=== PATIENT | male | born 1950 | race Caucasian/White ===

== ENCOUNTER 2017-03-04 16:39 | Observation (INO) | payer MEDICARE ==
[2017-03-04] MEDS ORDERED: Sodium Chloride 0.9% 1,000 ML IV ONE (17:03)
[2017-03-04] MEDS ORDERED: Pantoprazole 40 MG Vial IVPUSH ONE (17:03)
[2017-03-04] MEDS ORDERED: Ondansetron 4 MG/2 ML SDV IVPUSH ONE (17:03)
[2017-03-04] MEDS ORDERED: Iopamidol 755 Mg/ML 100 ML Bottle IV SCH (19:00)
[2017-03-04] MEDS ORDERED: Ciprofloxacin in D5W 200 MG in Premix Bag 1 BAG IV ONE ×2 (20:59)
[2017-03-04] MEDS ORDERED: cefTRIAXone 1,000 MG VIAL IM ONE (21:01)
[2017-03-04] MEDS ORDERED: Ciprofloxacin in D5W 100 ML ONE (21:34)
[2017-03-05] MEDS ORDERED: traZODone 50 MG Tab PO PRN (07:51)
[2017-03-05] MEDS ORDERED: Nitroglycerin 0.4 MG Tab.SL SL PRN (07:51)
[2017-03-05] MEDS ORDERED: Albuterol 8 GM Inhaler INH PRN (07:51)
[2017-03-05] MEDS ORDERED: oxyCODONE 5 MG Tab PO PRN (07:51)
[2017-03-05] MEDS ORDERED: Acetaminophen/HYDROcodone 325-5 MG Tab PO SCH (08:00)
--- NOTE | 2017-03-05 08:12 | PCM.HP ---
H&P History of Present Illness - General Date of Service: 03/05/17 Admit Problem/Dx: Admission Diagnosis/Problem Admission Diagnosis/Problem Gastroenteritis Source of Information: Patient History Limitations: Reports: No Limitations - History of Present Illness Initial Comments - Free Text/Narative: This is a 66-year-old male patient has 5 day history of vomiting right-sided abdominal pain, fevers, chills and occasional diarrhea. One time the diarrhea had a little blood in it and he had a dark stool so he came into the ER. He has no exposures. About a year ago he had elevated liver tests and he was sent [facility] and found that he had gallbladder disease. The gallbladder was removed. He states he's never quite felt right since then. He has lost 20 pounds in the last year. He says he has a decreased appetite. He also states he's had gross hematuria for 3-4 months. He has not had it checked out at this time. He says he doesn't really have burning in his urine right now but it doesn't feel right. He states right now when he has to urinate. If he doesn't have a bathroom available he may be incontinent. He states abdominal pain feels like a pulling. It's a right mid and lower quadrants. Does not radiate. He does have chronic back pain but denies CVA tenderness. Generalized Pain Score (Numeric/FACES): 4 - Related Data Allergies/Adverse Reactions: Allergies Allergy/AdvReac Type Severity Reaction Status Date / Time bupropion HCl Allergy Nausea Verified 03/05/17 07:56 [From Wellbutrin] latex Allergy Rash Verified 03/05/17 07:56 paroxetine HCl [From Paxil] Allergy Shaking Verified 03/05/17 07:56 Home Medications: Home Meds Carvedilol [Coreg] 6.25 mg PO BID 07/17/15 [History] Latanoprost [Xalatan 0.005% Ophth Soln] 1 drop EYEBOTH BEDTIME 07/17/15 [History ] Multivitamin with Minerals [Multiple Vitamin] 1 tab PO DAILY 07/17/15 [History] Nitroglycerin [Nitrostat] 0.4 mg SL Q5M PRN 07/17/15 [History] Sennosides/Docusate Sodium [Senna-Docusate Sodium Tablet] 1 tab PO DAILY PRN 10/ 23/15 [History] atorvaSTATin [Lipitor] 40 mg PO DAILY 07/17/15 [History] traZODone 50 mg PO BEDTIME PRN 07/17/15 [History] Aspirin [Halfprin] 81 mg PO DAILY tab.ec 07/22/15 [Rx] Albuterol [Ventolin HFA] 1 - 2 puff INH Q4H PRN 10/13/15 [History] Lactobacillus Acidophilus [Acidophilus] 1 cap PO TID 10/13/15 [History] oxyCODONE 5 mg PO Q6H PRN 10/13/15 [History] Dabigatran [Pradaxa] 1 cap PO BID 03/04/17 [History] Gabapentin [Neurontin] 1 cap PO BID 03/04/17 [History] Hydrocodone/Acetaminophen [[place] 5-325] 1 tab PO ASDIRECTED 03/04/17 [History] Tamsulosin [Flomax] 2 cap PO DAILY 03/04/17 [History] metFORMIN [Glucophage] 1 tab PO BID 03/04/17 [History] Past Medical History HEENT History: Reports: Impaired Vision, Other (See Below) Other HEENT History: Wears glasses. Cardiovascular History: Reports: Afib, Pacemaker, Stents, Other (See Below) Other Cardiovascular History: Stents X2. Respiratory History: Reports: Pneumonia, Recurrent Other Respiratory History: pneumonia as a child Gastrointestinal History: Reports: Other (See Below) Other Gastrointestinal History: ABSCESS ON LIVER Genitourinary History: Reports: None Other Genitourinary History: denies urinary hx; states urinary urgency started past few days Musculoskeletal History: Reports: Back Pain, Chronic, Fracture Other Musculoskeletal History: Left arm injury--required elbow and forearm surgery. Has difficulty walking due to low back pain and arthritis. Neurological History: Reports: Brain Injury, Head Trauma, Other (See Below) Other Neuro History: Fell off chair resulting in subdural hematoma, about 10 years ago. Required surgical intervention. Psychiatric History: Reports: None Endocrine/Metabolic History: Reports: Diabetes, Type II Hematologic History: Reports: Anticoagulation Therapy Immunologic History: Reports: None Oncologic (Cancer) History: Reports: None Dermatologic History: Reports: None - Infectious Disease History Infectious Disease History: Reports: Other (See Below) Other Infectious Disease History: Patient doesn't know what childhood diseases he may have had. - Past Surgical History Cardiovascular Surgical History: Reports: Coronary Artery Stent GI Surgical History: Reports: Cholecystectomy Other GI Surgeries/Procedures: states ~ a year ago, went in for his gallbladder removal; they ended up doing an incision, as the. gallbladder was in scar tissue, and the surgeon, [facility], lacerated a bile duct; says he was told. around that time he had a "severe liver infection" and in the hospital a while; denies it being. hepatitis Male Surgical History: Reports: None Musculoskeletal Surgical History: Reports: Arthroscopic Knee, Other (See Below) Other Musculoskeletal Surgeries/Procedures:: Left knee scope X2. Social & Family History - Family History Cardiac: Reports: CAD - Tobacco Use Smoking Status *Q: Current Every Day Smoker Years of Tobacco use: 47 Packs/Tins Daily: 1.5 Second Hand Smoke Exposure: No - Caffeine Use Caffeine Use: Reports: Coffee, Soda, Tea - Recreational Drug Use Recreational Drug Use: No - Living Situation & Occupation Living situation: Reports: H&P Review of Systems - Review of Systems: Review Of Systems: See Below General: Reports: Fever, Chills, Weakness, Decreased Appetite, Weight Loss HEENT: Reports: No Symptoms Pulmonary: Reports: No Symptoms Cardiovascular: Reports: No Symptoms Gastrointestinal: Reports: Abdominal Pain, Black Stool, Diarrhea, Hematochezia, Nausea, Vomiting. Denies: Stool Incontinence Genitourinary: Reports: Urgency, Hematuria. Denies: Flank Pain Musculoskeletal: Reports: No Symptoms Skin: Reports: No Symptoms Psychiatric: Reports: No Symptoms Neurological: Reports: No Symptoms Hematologic/Lymphatic: Reports: No Symptoms Immunologic: Reports: No Symptoms Exam - Exam Exam: See Below - Vital Signs Vital Signs: Last Vital Signs Temp 98.4 F 03/05/17 04:30 Pulse 109 H 03/05/17 04:30 Resp 18 03/05/17 04:30 BP 105/76 03/05/17 04:30 Pulse Ox 94 L 03/05/17 04:30 Weight: 230 lb 9.6 oz - Exam General: Alert, Oriented, Cooperative. No: Mild Distress HEENT: PERRLA, Hearing Intact, Posterior Pharynx Clear, Pupils Reactive, TMs Clear, Other (Upper plate) Neck: Supple, Trachea Midline. No: Carotid Bruit, JVD Lungs: Clear to Auscultation, Normal Respiratory Effort. No: Crackles, Rales, Rhonchi Cardiovascular: Regular Rate, Regular Rhythm. No: Irregular Rhythm, Systolic Murmur Abdomen: Soft, Tenderness (Diffuse to palpation.), Hyperactive Bowel Sounds. No : Organomegaly Back Exam: Normal Inspection Extremities: Normal Inspection. No: Clubbing, Cool, Edema Skin: Warm, Dry, Intact Neurological: Normal Tone Neuro Extensive - Mental Status: Alert, Oriented x3, Normal Mood/Affect, Normal Cognition - Patient Data Lab Results last 24 hrs: Laboratory Results - last 24 hr 03/04/17 03/04/17 03/04/17 Range/Units 21:15 21:20 22:20 POC Glucose 117 H (80-116) mg/dL Lactic Acid 1.0 (0.5-2.2) mmol/L Blood Type B POSITIVE Gel Antibody Screen Negative 03/05/17 Range/Units 06:26 POC Glucose 139 H (80-116) mg/dL Lactic Acid (0.5-2.2) mmol/L Blood Type Gel Antibody Screen Result Diagrams: 03/04/17 17:10 03/04/17 17:10 *Q Meaningful Use (ADM) - VTE *Q VTE Criteria *Q: - Stroke *Q Stroke Criteria *Q: - AMI *Q AMI Criteria *Q: - Problem List (1) Gastroenteritis SNOMED Code(s): 14196659 ICD Code: K52.9 - NONINFECTIVE GASTROENTERITIS AND COLITIS, UNSPECIFIED Status: Acute Current Visit: Yes (2) UTI (urinary tract infection) SNOMED Code(s): 61668601 ICD Code: N39.0 - URINARY TRACT INFECTION, SITE NOT SPECIFIED Status: Acute Current Visit: Yes (3) Gross hematuria SNOMED Code(s): 498541197 ICD Code: R31.0 - GROSS HEMATURIA Status: Acute Current Visit: Yes (4) Elevated LFTs SNOMED Code(s): 838679039 ICD Code: R79.89 - OTHER SPECIFIED ABNORMAL FINDINGS OF BLOOD CHEMISTRY Status: Acute Current Visit: Yes (5) Smoking addiction SNOMED Code(s): 712916668, 713529089 ICD Code: F17.200 - NICOTINE DEPENDENCE, UNSPECIFIED, UNCOMPLICATED Status : Acute Current Visit: Yes Problem List Initiated/Reviewed/Updated: Yes Orders Last 24hrs: Active Orders 24 hr Category Date Time Status Blood Glucose Check, Bedside [RC] QIDACANDBED Care 03/05/17 06:30 Active EKG Documentation Completion [RC] ASDIRECTED Care 03/05/17 08:00 Active Consistent Carbohydrate Diet [DIET] Diet 03/05/17 Breakfast Active CBC WITH AUTO DIFF [HEME] Routine Lab 03/05/17 07:51 Ordered COMPREHENSIVE METABOLIC PN,CMP [CHEM] Routine Lab 03/05/17 07:51 Ordered CULTURE URINE [RM] Stat Lab 03/04/17 17:45 Received Acetaminophen/HYDROcodone [[place] 325-5 MG] Med 03/05/17 08:00 Pending 1 tab PO ASDIRECTED Albuterol [Ventolin HFA] Med 03/05/17 07:51 Ordered DOSE gm INH Q4H PRN Aspirin [Halfprin] Med 03/05/17 09:00 Ordered 81 mg PO DAILY Carvedilol [Coreg] Med 03/05/17 09:00 Ordered 6.25 mg PO BID Docusate Sodium/Sennosides [Senna Plus] Med 03/05/17 07:51 Ordered 1 tab PO DAILY PRN Gabapentin [Neurontin] Med 03/05/17 09:00 Ordered DOSE mg PO BID Lactobacillus Acidophilus [Acidophilus] Med 03/05/17 09:00 Ordered 1 cap PO TID Latanoprost [Xalatan 0.005% Ophth Soln] Med 03/05/17 21:00 Ordered DOSE ml EYEBOTH BEDTIME Multivitamin with Minerals [Multiple Vitamin] Med 03/05/17 09:00 Ordered 1 tab PO DAILY Nitroglycerin [Nitrostat] Med 03/05/17 07:51 Ordered 0.4 mg SL Q5M PRN Sodium Chloride 0.9% [Normal Saline] 1,000 ml Med 03/05/17 08:00 Active IV ASDIRECTED Tamsulosin [Flomax] Med 03/05/17 09:00 Ordered DOSE mg PO DAILY atorvaSTATin [Lipitor] Med 03/05/17 09:00 Ordered 40 mg PO DAILY cefTRIAXone [Rocephin] 1,000 mg Med 03/05/17 08:00 Active Sodium Chloride 0.9% [Normal Saline] 50 ml IV Q24H oxyCODONE Med 03/05/17 07:51 Active 5 mg PO Q6H PRN traZODone Med 03/05/17 07:51 Ordered 50 mg PO BEDTIME PRN EKG 12 Lead [EK] Routine Ther 03/05/17 08:00 Ordered Medication Orders Hydrocodone Bitart/Acetaminophen ([place] 325-5 Mg) 1 tab PO ASDIRECTED [facility] Albuterol (Ventolin Hfa) gm INH Q4H PRN PRN Reason: Dyspnea Aspirin (Halfprin) 81 mg PO DAILY [facility] Atorvastatin Calcium (Lipitor) 40 mg PO DAILY [facility] Carvedilol (Coreg) 6.25 mg PO BID [facility] Gabapentin (Neurontin) mg PO BID [facility] Sodium Chloride (Normal Saline) 1,000 mls @ 125 mls/hr IV ASDIRECTED [facility] Ceftriaxone Sodium 1,000 mg/ (Sodium Chloride) 50 mls @ 100 mls/hr IV Q24H [facility] Iopamidol (Isovue-370 (76%)) 100 ml IV . DIRECTED [facility] Last Admin: 03/04/17 19:34 Dose: 100 ml Latanoprost (Xalatan 0.005% Ophth Soln) ml EYEBOTH BEDTIME [facility] Nitroglycerin (Nitrostat) 0.4 mg SL Q5M PRN PRN Reason: Chest Pain Non-Formulary Medication (Lactobacillus Acidophilus [Acidophilus]) 1 cap PO TID [facility] Non-Formulary Medication (Multivitamin With Minerals [Multiple Vitamin]) 1 tab PO DAILY [facility] Oxycodone HCl (Oxycodone) 5 mg PO Q6H PRN PRN Reason: moderate pain Senna/Docusate Sodium (Senna Plus) 1 tab PO DAILY PRN PRN Reason: Constipation Tamsulosin HCl (Flomax) mg PO DAILY [facility] Trazodone HCl (Trazodone) 50 mg PO BEDTIME PRN PRN Reason: Insomnia Assessment/Plan Comment:: 1. Repeat CBC and CMP. 2. EKG to see if the patient's in A. fib or not. I do not detect A. fib on exam today. 3. Rocephin 1 g a day plus IV fluids 125 mL an hour. 4. ADA diet with multiple Accu-Cheks. 5. Hold metformin and Pradaxa 6. Lookup in his chart and his LFTs have been elevated in the past but not quite this high. 7. CAT scan reviewed and essentially no acute changes. 8. Patient to use his own home medications. 9. I offered the patient nicotine patch. He deferred. Smoking cessation discussed. 10. Hold anticoagulation due to possible rectal bleeding and gross hematuria. 11. SCD
[2017-03-05] MEDS ORDERED: Acetaminophen/HYDROcodone 325-5 MG Tab PO PRN (08:42)
[2017-03-05] MEDS ORDERED: Ondansetron 4 MG/2 ML SDV IVPUSH PRN (08:49)
[2017-03-05] MEDS: cefTRIAXone 1,000 MG in Sodium Chloride 0.9% 50 ML IV SCH (09:05)
[2017-03-05] MEDS ORDERED: cefTRIAXone 1,000 MG VIAL ONE (09:32)
[2017-03-05] MEDS: Multivitamins, Therapeutic with Minerals Tab PO SCH (10:03)
[2017-03-05] MEDS: Lactobacillus Rhamnosus GG (Probiotic) Cap PO SCH ×3 (10:03→20:48)
[2017-03-05] MEDS: Tamsulosin 0.4 MG Cap.ER*PT OWN MED PO SCH (10:04)
[2017-03-05] MEDS: [UNRECOGNIZED DRUG - REMARK] PO SCH (10:04)
[2017-03-05] MEDS: Gabapentin 300 MG Cap*PT OWN MED PO SCH ×2 (10:04→20:50)
[2017-03-05] MEDS: CARVEDILOL 12.5 MG PO SCH ×2 (10:04→20:47)
[2017-03-05] MEDS: Sodium Chloride 0.9% 1,000 ML IV SCH ×2 (15:24→23:48)
[2017-03-05] MEDS ORDERED: [UNRECOGNIZED DRUG - REMARK] EYEBOTH SCH (21:00)
[2017-03-06] MEDS: cefTRIAXone 1,000 MG in Sodium Chloride 0.9% 50 ML IV SCH (07:52)
--- NOTE | 2017-03-06 07:57 | PCM.PN ---
- General Info Date of Service: 03/06/17 Admission Dx/Problem (Free Text): The patient feels much better today. He states his urine looks normal and there is no blood. His appetite is still poor be seeing about half what he orders. He has not had a diarrhea stool and about 12 hours. He has no abdominal pain, fevers, chills and his energy is improving. - Patient Data Vitals - most recent: Last Vital Signs Temp 98 F 03/06/17 05:30 Pulse 108 H 03/06/17 05:30 Resp 20 03/06/17 05:30 BP 103/65 03/06/17 05:30 Pulse Ox 95 03/06/17 05:30 Weight - most recent: 230 lb 9.6 oz I&O - last 24 hours: Intake & Output 03/05/17 03/06/17 03/06/17 22:59 06:59 14:59 Intake Total 688 1028 Output Total 450 Balance 688 578 Lab Results last 24 hrs: Laboratory Results - last 24 hr 03/05/17 03/05/17 03/05/17 Range/Units 08:24 08:24 11:11 WBC 15.9 H (4.5-12.0) X10-3/uL RBC 4.75 (4.30-5.75) x10(6)uL Hgb 13.4 (11.5-15.5) g/dL Hct 39.8 (30.0-51.3) % MCV 83.8 (80-96) fL MCH 28.2 (27.7-33.6) pg MCHC 33.7 (32.2-35.4) g/dL RDW 14.8 (11.5-15.5) % Plt Count 108 L (125-369) X10(3)uL MPV 11.0 H (7.4-10.4) fL Neut % (Auto) (46-82) % Lymph % (Auto) (13-37) % [place] % (Auto) (4-12) % Eos % (Auto) (1.0-5.0) % Baso % (Auto) (0-2) % Neut # (Auto) (1.6-8.3) # Lymph # (Auto) (0.6-5.0) # [place] # (Auto) (0.0-1.3) # Eos # (Auto) (0.0-0.8) # Baso # (Auto) (0.0-0.2) # Add Manual Diff Yes Neutrophils % (Manual) 76 (46-82) % Lymphocytes % (Manual) 21 (13-37) % Monocytes % (Manual) 3 L (4-12) % Sodium 139 (135-145) mmol/L Potassium 3.8 (3.5-5.3) mmol/L Chloride 105 (100-110) mmol/L Carbon Dioxide 27 (23-29) mmol/L BUN 14 (8-23) mg/dL Creatinine 1.0 (0.6-1.3) mg/dL Est Cr Clr Drug Dosing 79.76 mL/min Estimated GFR (MDRD) > 60 (>60) BUN/Creatinine Ratio 14.0 (9-20) Glucose 122 H (80-116) mg/dL POC Glucose 137 H (80-116) mg/dL Calcium 8.7 (8.6-10.2) mg/dL Total Bilirubin 1.2 (0.1-1.3) mg/dL AST 76 H D (5-27) IU/L ALT 172 H D (14-26) IU/L Alkaline Phosphatase 144 H (56-112) IU/L Total Protein 6.7 (6.0-8.0) g/dL Albumin 2.6 L (3.2-4.6) g/dL Globulin 4.1 g/dL Albumin/Globulin Ratio 0.6 03/05/17 03/05/17 03/06/17 Range/Units 16:58 22:28 06:10 WBC 11.6 (4.5-12.0) X10-3/uL RBC 4.40 (4.30-5.75) x10(6)uL Hgb 12.4 (11.5-15.5) g/dL Hct 37.2 (30.0-51.3) % MCV 84.7 (80-96) fL MCH 28.2 (27.7-33.6) pg MCHC 33.4 (32.2-35.4) g/dL RDW 14.7 (11.5-15.5) % Plt Count 106 L (125-369) X10(3)uL MPV 12.2 H (7.4-10.4) fL Neut % (Auto) 72.4 (46-82) % Lymph % (Auto) 18.1 (13-37) % [place] % (Auto) 8.5 (4-12) % Eos % (Auto) 1 (1.0-5.0) % Baso % (Auto) 0 (0-2) % Neut # (Auto) 8.4 H (1.6-8.3) # Lymph # (Auto) 2.1 (0.6-5.0) # [place] # (Auto) 1.0 (0.0-1.3) # Eos # (Auto) 0.1 (0.0-0.8) # Baso # (Auto) 0.0 (0.0-0.2) # Add Manual Diff Neutrophils % (Manual) (46-82) % Lymphocytes % (Manual) (13-37) % Monocytes % (Manual) (4-12) % Sodium (135-145) mmol/L Potassium (3.5-5.3) mmol/L Chloride (100-110) mmol/L Carbon Dioxide (23-29) mmol/L BUN (8-23) mg/dL Creatinine (0.6-1.3) mg/dL Est Cr Clr Drug Dosing mL/min Estimated GFR (MDRD) (>60) BUN/Creatinine Ratio (9-20) Glucose (80-116) mg/dL POC Glucose 125 H 133 H (80-116) mg/dL Calcium (8.6-10.2) mg/dL Total Bilirubin (0.1-1.3) mg/dL AST (5-27) IU/L ALT (14-26) IU/L Alkaline Phosphatase (56-112) IU/L Total Protein (6.0-8.0) g/dL Albumin (3.2-4.6) g/dL Globulin g/dL Albumin/Globulin Ratio 03/06/17 Range/Units 06:10 WBC (4.5-12.0) X10-3/uL RBC (4.30-5.75) x10(6)uL Hgb (11.5-15.5) g/dL Hct (30.0-51.3) % MCV (80-96) fL MCH (27.7-33.6) pg MCHC (32.2-35.4) g/dL RDW (11.5-15.5) % Plt Count (125-369) X10(3)uL MPV (7.4-10.4) fL Neut % (Auto) (46-82) % Lymph % (Auto) (13-37) % [place] % (Auto) (4-12) % Eos % (Auto) (1.0-5.0) % Baso % (Auto) (0-2) % Neut # (Auto) (1.6-8.3) # Lymph # (Auto) (0.6-5.0) # [place] # (Auto) (0.0-1.3) # Eos # (Auto) (0.0-0.8) # Baso # (Auto) (0.0-0.2) # Add Manual Diff Neutrophils % (Manual) (46-82) % Lymphocytes % (Manual) (13-37) % Monocytes % (Manual) (4-12) % Sodium 141 (135-145) mmol/L Potassium 3.7 (3.5-5.3) mmol/L Chloride 109 (100-110) mmol/L Carbon Dioxide 25 (23-29) mmol/L BUN 17 (8-23) mg/dL Creatinine 0.9 (0.6-1.3) mg/dL Est Cr Clr Drug Dosing 88.62 mL/min Estimated GFR (MDRD) > 60 (>60) BUN/Creatinine Ratio 18.9 (9-20) Glucose 126 H (80-116) mg/dL POC Glucose (80-116) mg/dL Calcium 8.4 L (8.6-10.2) mg/dL Total Bilirubin 1.0 (0.1-1.3) mg/dL AST 60 H D (5-27) IU/L ALT 126 H D (14-26) IU/L Alkaline Phosphatase 146 H (56-112) IU/L Total Protein 6.1 (6.0-8.0) g/dL Albumin 2.5 L (3.2-4.6) g/dL Globulin 3.6 g/dL Albumin/Globulin Ratio 0.7 Med Orders - Current: Current Medications Hydrocodone Bitart/Acetaminophen ([place] 325-5 Mg) 1 tab PO QID PRN PRN Reason: Pain Last Admin: 03/05/17 10:05 Dose: 1 tab Albuterol (Ventolin Hfa) 0 gm INH Q4H PRN PRN Reason: Dyspnea Aspirin (Halfprin) 81 mg PO DAILY [facility] Last Admin: 03/05/17 10:04 Dose: 81 mg Atorvastatin Calcium (Lipitor) 40 mg PO BEDTIME [facility] Last Admin: 03/05/17 20:49 Dose: 40 mg Carvedilol (Coreg) 12.5 mg PO BID [facility] Last Admin: 03/05/17 20:47 Dose: 12.5 mg Gabapentin (Neurontin) 300 mg PO BID [facility] Last Admin: 03/05/17 20:50 Dose: 300 mg Sodium Chloride (Normal Saline) 1,000 mls @ 125 mls/hr IV ASDIRECTED [facility] Last Admin: 03/05/17 23:48 Dose: 125 mls/hr Ceftriaxone Sodium 1,000 mg/ (Sodium Chloride) 50 mls @ 100 mls/hr IV Q24H [facility] Last Admin: 03/06/17 07:52 Dose: 100 mls/hr Iopamidol (Isovue-370 (76%)) 100 ml IV . DIRECTED [facility] Last Admin: 03/04/17 19:34 Dose: 100 ml Lactobacillus Rhamnosus (Culturelle) 1 cap PO TID [facility] Last Admin: 03/05/17 20:48 Dose: Not Given Latanoprost (Xalatan 0.005% Ophth Soln) 0 ml EYEBOTH BEDTIME [facility] Last Admin: 03/05/17 20:51 Dose: 1 drop Multivitamins/Minerals (Vitamins And Minerals) 1 tab PO DAILY [facility] Last Admin: 03/05/17 10:03 Dose: Not Given Nitroglycerin (Nitrostat) 0.4 mg SL Q5M PRN PRN Reason: Chest Pain Ondansetron HCl (Zofran) 4 mg IVPUSH Q6H PRN PRN Reason: Nausea/Vomiting Senna/Docusate Sodium (Senna Plus) 1 tab PO DAILY PRN PRN Reason: Constipation Tamsulosin HCl (Flomax) 0.8 mg PO DAILY [facility] Last Admin: 03/05/17 10:04 Dose: 0.8 mg Trazodone HCl (Trazodone) 50 mg PO BEDTIME PRN PRN Reason: Insomnia Discontinued Medications Hydrocodone Bitart/Acetaminophen ([place] 325-5 Mg) 1 tab PO ASDIRECTED [facility] Ceftriaxone Sodium (Rocephin) 1,000 mg IM ONETIME ONE Stop: 03/04/17 21:02 Last Admin: 03/04/17 21:42 Dose: 1,000 mg Ceftriaxone Sodium (Rocephin) Confirm Administered Dose 1,000 mg .ROUTE .STK- MED ONE Stop: 03/05/17 09:33 Last Admin: 03/05/17 10:02 Dose: Not Given Sodium Chloride (Normal Saline) 1,000 mls @ 0 mls/hr IV .BOLUS ONE PRN Reason: KVO Stop: 03/04/17 17:04 Last Admin: 03/04/17 17:23 Dose: 999 mls/hr Ciprofloxacin/Dextrose 200 mg/ (Premix) 100 mls @ 100 mls/hr IV ONETIME ONE Stop: 03/04/17 21:58 Last Admin: 03/04/17 21:42 Dose: 100 mls/hr Ciprofloxacin/Dextrose (Cipro In D5w 200 Mg/100 Ml) Confirm Administered Dose 100 mls @ as directed .ROUTE .STK-MED ONE Stop: 03/04/17 21:35 Last Admin: 03/04/17 22:12 Dose: Not Given Ondansetron HCl (Zofran) 4 mg IVPUSH ONETIME ONE Stop: 03/04/17 17:04 Last Admin: 03/04/17 17:29 Dose: 4 mg Oxycodone HCl (Oxycodone) 5 mg PO Q6H PRN PRN Reason: moderate pain Pantoprazole Sodium (Protonix Iv) 40 mg IVPUSH ONETIME ONE Stop: 03/04/17 17:04 Last Admin: 03/04/17 17:30 Dose: 40 mg - Exam General: alert, oriented, cooperative Neck: supple Lungs: Clear to auscultation, Normal respiratory effort Cardiovascular: Regular Rate, Regular Rhythm, No Murmurs Abdomen: bowel sounds present, soft, no tenderness, no distension Extremities: no edema - Problem List & Annotations (1) Gastroenteritis SNOMED Code(s): 18299005 Code(s): K52.9 - NONINFECTIVE GASTROENTERITIS AND COLITIS, UNSPECIFIED Status: Acute Current Visit: Yes (2) UTI (urinary tract infection) SNOMED Code(s): 65482031 Code(s): N39.0 - URINARY TRACT INFECTION, SITE NOT SPECIFIED Status: Acute Current Visit: Yes Qualifiers: Urinary tract infection type: acute cystitis Hematuria presence: with hematuria Qualified Code(s): N30.01 - Acute cystitis with hematuria (3) Elevated LFTs SNOMED Code(s): 587729274 Code(s): R79.89 - OTHER SPECIFIED ABNORMAL FINDINGS OF BLOOD CHEMISTRY Status: Acute Current Visit: Yes (4) Smoking addiction SNOMED Code(s): 135156185, 384107447 Code(s): F17.200 - NICOTINE DEPENDENCE, UNSPECIFIED, UNCOMPLICATED Status: Acute Current Visit: Yes (5) Thrombocytopenia SNOMED Code(s): 434604459 Code(s): D69.6 - THROMBOCYTOPENIA, UNSPECIFIED Status: Acute Current Visit: Yes - Problem List Review Problem List Initiated/Reviewed/Updated: Yes - My Orders Last 24 Hours: My Active Orders 03/05/17 07:51 Albuterol [Ventolin HFA] 0 gm INH Q4H PRN Docusate Sodium/Sennosides [Senna Plus] 1 tab PO DAILY PRN Nitroglycerin [Nitrostat] 0.4 mg SL Q5M PRN traZODone 50 mg PO BEDTIME PRN 03/05/17 08:00 EKG Documentation Completion [RC] ASDIRECTED Sodium Chloride 0.9% [Normal Saline] 1,000 ml IV ASDIRECTED cefTRIAXone [Rocephin] 1,000 mg Sodium Chloride 0.9% [Normal Saline] 50 ml IV Q24H EKG 12 Lead [EK] Routine 03/05/17 08:17 SCD [Sequential Compression Device] [OM.PC] Routine 03/05/17 08:42 Acetaminophen/HYDROcodone [[place] 325-5 MG] 1 tab PO QID PRN 03/05/17 08:49 Ondansetron [Zofran] 4 mg IVPUSH Q6H PRN 03/05/17 09:00 Tamsulosin [Flomax] 0.8 mg PO DAILY 03/05/17 09:14 Blood Culture x2 Reflex Set [OM.PC] Urgent 03/05/17 09:25 CULTURE BLOOD [BC] Urgent 03/05/17 09:50 CULTURE BLOOD [BC] Urgent 03/05/17 10:00 Aspirin [Halfprin] 81 mg PO DAILY Carvedilol [Coreg] 12.5 mg PO BID Gabapentin [Neurontin] 300 mg PO BID 03/05/17 10:15 Lactobacillus Rhamnosus GG [Culturelle] 1 cap PO TID Multivitamins/Minerals [Vitamins and Minerals] 1 tab PO DAILY 03/05/17 21:00 Latanoprost [Xalatan 0.005% Ophth Soln] 0 ml EYEBOTH BEDTIME atorvaSTATin [Lipitor] 40 mg PO BEDTIME - Plan Plan:: 1. DC IV fluids have been saline locked IV. 2. UA grew out gram-negative rods. The lab states that the identification sensitivity should be done this afternoon. 3. If the bacteria identified as sensitive to by mouth antibiotics I will discharge this afternoon. If it is not sensitive PO antibiotics and only IV antibiotics work, he will stay here.
[2017-03-06] MEDS: Multivitamins, Therapeutic with Minerals Tab PO SCH (09:05)
[2017-03-06] MEDS: [UNRECOGNIZED DRUG - REMARK] PO SCH (09:05)
[2017-03-06] MEDS: Tamsulosin 0.4 MG Cap.ER*PT OWN MED PO SCH (09:05)
[2017-03-06] MEDS: Gabapentin 300 MG Cap*PT OWN MED PO SCH (09:05)
[2017-03-06] MEDS: Lactobacillus Rhamnosus GG (Probiotic) Cap PO SCH ×2 (09:05→13:12)
[2017-03-06] MEDS: CARVEDILOL 12.5 MG PO SCH (09:05)
[2017-03-06 15:49] VITALS: BP 107/77
--- NOTE | 2017-03-06 17:37 | PCM.DCSUM1 ---
Discharge Summary - Hospital Course Free Text/Narrative:: Hospital coarse. Pt admitted and rehydrate. Rocephin for antibiotics. His diarrhea improved and his fevers and chills left. He ate and drank good. IC grew out gram negative rods. Awaiting I and D. Pt wanted to go home before the results were down. send him home on Cipro 500 mg bid. Platelets mildly low. recheck them in clinic. Brief History: This is a 66-year-old male patient has 5 day history of vomiting right-sided abdominal pain, fevers, chills and occasional diarrhea. One time the diarrhea had a little blood in it and he had a dark stool so he came into the ER. He has no exposures. About a year ago he had elevated liver tests and he was sent [facility] and found that he had gallbladder disease. The gallbladder was removed. He states he's never quite felt right since then. He has lost 20 pounds in the last year. He says he has a decreased appetite. He also states he's had gross hematuria for 3-4 months. He has not had it checked out at this time. He says he doesn't really have burning in his urine right now but it doesn't feel right. He states right now when he has to urinate. If he doesn't have a bathroom available he may be incontinent. He states abdominal pain feels like a pulling. It's a right mid and lower quadrants. Does not radiate. He does have chronic back pain but denies CVA tenderness. - Discharge Data Discharge Date: 03/06/17 Discharge Disposition: Home, Self-Care 01 Condition: Stable - Discharge Diagnosis/Problem(s) (1) Gastroenteritis SNOMED Code(s): 58021311 ICD Code: K52.9 - NONINFECTIVE GASTROENTERITIS AND COLITIS, UNSPECIFIED Status: Acute Current Visit: Yes (2) UTI (urinary tract infection) SNOMED Code(s): 14495458 ICD Code: N39.0 - URINARY TRACT INFECTION, SITE NOT SPECIFIED Status: Acute Current Visit: Yes Qualifiers: Urinary tract infection type: acute cystitis Hematuria presence: with hematuria Qualified Code(s): N30.01 - Acute cystitis with hematuria (3) Elevated LFTs SNOMED Code(s): 367447894 ICD Code: R79.89 - OTHER SPECIFIED ABNORMAL FINDINGS OF BLOOD CHEMISTRY Status: Acute Current Visit: Yes (4) Smoking addiction SNOMED Code(s): 322812886, 927024162 ICD Code: F17.200 - NICOTINE DEPENDENCE, UNSPECIFIED, UNCOMPLICATED Status : Acute Current Visit: Yes (5) Thrombocytopenia SNOMED Code(s): 915786032 ICD Code: D69.6 - THROMBOCYTOPENIA, UNSPECIFIED Status: Acute Current Visit: Yes - Patient Instructions Diet: Regular Diet as Tolerated Activity: As Tolerated Driving: May Drive Today Showering/Bathing: May Shower Notify Provider of: Fever, Increased Pain Other/Special Instructions: 1. Recheck with Dr Wallace in 7-10 days with UA, CBC and CMP before the appt. - Discharge Plan Prescriptions/Med Rec: Ciprofloxacin [IJD: Ciprofloxacin HCl] 500 mg PO BID #24 tab Home Medications: Home Meds Carvedilol [Coreg] 6.25 mg PO BID 07/17/15 [History] Latanoprost [Xalatan 0.005% Ophth Soln] 1 drop EYEBOTH BEDTIME 07/17/15 [History ] Multivitamin with Minerals [Multiple Vitamin] 1 tab PO DAILY 07/17/15 [History] Nitroglycerin [Nitrostat] 0.4 mg SL Q5M PRN 07/17/15 [History] Sennosides/Docusate Sodium [Senna-Docusate Sodium Tablet] 1 tab PO DAILY PRN [History] atorvaSTATin [Lipitor] 40 mg PO DAILY 07/17/15 [History] traZODone 50 mg PO BEDTIME PRN 07/17/15 [History] Aspirin [Halfprin] 81 mg PO DAILY tab.ec 07/22/15 [Rx] Albuterol [Ventolin HFA] 1 - 2 puff INH Q4H PRN 10/13/15 [History] Lactobacillus Acidophilus [Acidophilus] 1 cap PO TID 10/13/15 [History] oxyCODONE 5 mg PO Q6H PRN 10/13/15 [History] Dabigatran [Pradaxa] 1 cap PO BID 03/04/17 [History] Gabapentin [Neurontin] 1 cap PO BID 03/04/17 [History] Hydrocodone/Acetaminophen [[place] 5-325] 1 tab PO Q3D PRN 03/04/17 [History] Tamsulosin [Flomax] 2 cap PO DAILY 03/04/17 [History] metFORMIN [Glucophage] 1 tab PO BID 03/04/17 [History] Ciprofloxacin [IJD: Ciprofloxacin HCl] 500 mg PO BID #24 tab 03/06/17 [Rx] Forms: ED Department Discharge Referrals: Ochoa Banks MD [Primary Care Provider] - - Discharge Summary/Plan Comment DC Time >30 min.: No - Patient Data Vitals - Most Recent: Last Vital Signs Temp 98.1 F 03/06/17 15:48 Pulse 92 03/06/17 15:48 Resp 20 03/06/17 15:48 BP 107/77 03/06/17 15:48 Pulse Ox 95 03/06/17 15:48 Weight - Most Recent: 230 lb 9.6 oz I&O - Last 24 hours: Intake & Output 03/06/17 03/06/17 03/06/17 06:59 14:59 22:59 Intake Total 1028 361 Output Total 450 300 Balance 578 61 Lab Results - Last 24 hrs: Laboratory Results - last 24 hr 03/05/17 03/06/17 03/06/17 Range/Units 22:28 06:10 06:10 WBC 11.6 (4.5-12.0) X10-3/uL RBC 4.40 (4.30-5.75) x10(6)uL Hgb 12.4 (11.5-15.5) g/dL Hct 37.2 (30.0-51.3) % MCV 84.7 (80-96) fL MCH 28.2 (27.7-33.6) pg MCHC 33.4 (32.2-35.4) g/dL RDW 14.7 (11.5-15.5) % Plt Count 106 L (125-369) X10(3)uL MPV 12.2 H (7.4-10.4) fL Neut % (Auto) 72.4 (46-82) % Lymph % (Auto) 18.1 (13-37) % [place] % (Auto) 8.5 (4-12) % Eos % (Auto) 1 (1.0-5.0) % Baso % (Auto) 0 (0-2) % Neut # (Auto) 8.4 H (1.6-8.3) # Lymph # (Auto) 2.1 (0.6-5.0) # [place] # (Auto) 1.0 (0.0-1.3) # Eos # (Auto) 0.1 (0.0-0.8) # Baso # (Auto) 0.0 (0.0-0.2) # Sodium 141 (135-145) mmol/L Potassium 3.7 (3.5-5.3) mmol/L Chloride 109 (100-110) mmol/L Carbon Dioxide 25 (23-29) mmol/L BUN 17 (8-23) mg/dL Creatinine 0.9 (0.6-1.3) mg/dL Est Cr Clr Drug Dosing 88.62 mL/min Estimated GFR (MDRD) > 60 (>60) BUN/Creatinine Ratio 18.9 (9-20) Glucose 126 H (80-116) mg/dL POC Glucose 133 H (80-116) mg/dL Calcium 8.4 L (8.6-10.2) mg/dL Total Bilirubin 1.0 (0.1-1.3) mg/dL AST 60 H D (5-27) IU/L ALT 126 H D (14-26) IU/L Alkaline Phosphatase 146 H (56-112) IU/L Total Protein 6.1 (6.0-8.0) g/dL Albumin 2.5 L (3.2-4.6) g/dL Globulin 3.6 g/dL Albumin/Globulin Ratio 0.7 /12/17 Range/Units 11:24 WBC (4.5-12.0) X10-3/uL RBC (4.30-5.75) x10(6)uL Hgb (11.5-15.5) g/dL Hct (30.0-51.3) % MCV (80-96) fL MCH (27.7-33.6) pg MCHC (32.2-35.4) g/dL RDW (11.5-15.5) % Plt Count (125-369) X10(3)uL MPV (7.4-10.4) fL Neut % (Auto) (46-82) % Lymph % (Auto) (13-37) % [place] % (Auto) (4-12) % Eos % (Auto) (1.0-5.0) % Baso % (Auto) (0-2) % Neut # (Auto) (1.6-8.3) # Lymph # (Auto) (0.6-5.0) # [place] # (Auto) (0.0-1.3) # Eos # (Auto) (0.0-0.8) # Baso # (Auto) (0.0-0.2) # Sodium (135-145) mmol/L Potassium (3.5-5.3) mmol/L Chloride (100-110) mmol/L Carbon Dioxide (23-29) mmol/L BUN (8-23) mg/dL Creatinine (0.6-1.3) mg/dL Est Cr Clr Drug Dosing mL/min Estimated GFR (MDRD) (>60) BUN/Creatinine Ratio (9-20) Glucose (80-116) mg/dL POC Glucose 129 H (80-116) mg/dL Calcium (8.6-10.2) mg/dL Total Bilirubin (0.1-1.3) mg/dL AST (5-27) IU/L ALT (14-26) IU/L Alkaline Phosphatase (56-112) IU/L Total Protein (6.0-8.0) g/dL Albumin (3.2-4.6) g/dL Globulin g/dL Albumin/Globulin Ratio ELLEN Results - Last 24 hrs: Microbiology 03/05/17 09:50 Aerobic Blood Culture - Preliminary Blood - Venous - Lab Draw NO GROWTH AFTER 1 DAY Anaerobic Blood Culture - Preliminary NO GROWTH AFTER 1 DAY 03/05/17 09:25 Aerobic Blood Culture - Preliminary Blood - Venous NO GROWTH AFTER 1 DAY Anaerobic Blood Culture - Preliminary NO GROWTH AFTER 1 DAY Med Orders - Current: Current Medications Hydrocodone Bitart/Acetaminophen ([place] 325-5 Mg) 1 tab PO QID PRN PRN Reason: Pain Last Admin: 03/05/17 10:05 Dose: 1 tab Albuterol (Ventolin Hfa) 0 gm INH Q4H PRN PRN Reason: Dyspnea Aspirin (Halfprin) 81 mg PO DAILY QUINN Last Admin: 03/06/17 09:05 Dose: 81 mg Atorvastatin Calcium (Lipitor) 40 mg PO BEDTIME QUINN Last Admin: 03/05/17 20:49 Dose: 40 mg Carvedilol (Coreg) 12.5 mg PO BID [facility] Last Admin: 03/06/17 09:05 Dose: 12.5 mg Gabapentin (Neurontin) 300 mg PO BID [facility] Last Admin: 03/06/17 09:05 Dose: 300 mg Ceftriaxone Sodium 1,000 mg/ (Sodium Chloride) 50 mls @ 100 mls/hr IV Q24H [facility] Last Admin: 03/06/17 07:52 Dose: 100 mls/hr Iopamidol (Isovue-370 (76%)) 100 ml IV . DIRECTED [facility] Last Admin: 03/04/17 19:34 Dose: 100 ml Lactobacillus Rhamnosus (Culturelle) 1 cap PO TID [facility] Last Admin: 03/06/17 13:12 Dose: Not Given Latanoprost (Xalatan 0.005% Ophth Soln) 0 ml EYEBOTH BEDTIME [facility] Last Admin: 03/05/17 20:51 Dose: 1 drop Multivitamins/Minerals (Vitamins And Minerals) 1 tab PO DAILY [facility] Last Admin: 03/06/17 09:05 Dose: Not Given Nitroglycerin (Nitrostat) 0.4 mg SL Q5M PRN PRN Reason: Chest Pain Ondansetron HCl (Zofran) 4 mg IVPUSH Q6H PRN PRN Reason: Nausea/Vomiting Senna/Docusate Sodium (Senna Plus) 1 tab PO DAILY PRN PRN Reason: Constipation Tamsulosin HCl (Flomax) 0.8 mg PO DAILY [facility] Last Admin: 03/06/17 09:05 Dose: 0.8 mg Trazodone HCl (Trazodone) 50 mg PO BEDTIME PRN PRN Reason: Insomnia Discontinued Medications Hydrocodone Bitart/Acetaminophen ([place] 325-5 Mg) 1 tab PO ASDIRECTED [facility] Ceftriaxone Sodium (Rocephin) 1,000 mg IM ONETIME ONE Stop: 03/04/17 21:02 Last Admin: 03/04/17 21:42 Dose: 1,000 mg Ceftriaxone Sodium (Rocephin) Confirm Administered Dose 1,000 mg .ROUTE .STK- MED ONE Stop: 03/05/17 09:33 Last Admin: 03/05/17 10:02 Dose: Not Given Sodium Chloride (Normal Saline) 1,000 mls @ 0 mls/hr IV .BOLUS ONE PRN Reason: KVO Stop: 03/04/17 17:04 Last Admin: 03/04/17 17:23 Dose: 999 mls/hr Ciprofloxacin/Dextrose 200 mg/ (Premix) 100 mls @ 100 mls/hr IV ONETIME ONE Stop: 03/04/17 21:58 Last Admin: 03/04/17 21:42 Dose: 100 mls/hr Ciprofloxacin/Dextrose (Cipro In D5w 200 Mg/100 Ml) Confirm Administered Dose 100 mls @ as directed .ROUTE .STK-MED ONE Stop: 03/04/17 21:35 Last Admin: 03/04/17 22:12 Dose: Not Given Sodium Chloride (Normal Saline) 1,000 mls @ 125 mls/hr IV ASDIRECTED QUINN Last Admin: 03/05/17 23:48 Dose: 125 mls/hr Ondansetron HCl (Zofran) 4 mg IVPUSH ONETIME ONE Stop: 03/04/17 17:04 Last Admin: 03/04/17 17:29 Dose: 4 mg Oxycodone HCl (Oxycodone) 5 mg PO Q6H PRN PRN Reason: moderate pain Pantoprazole Sodium (Protonix Iv) 40 mg IVPUSH ONETIME ONE Stop: 03/04/17 17:04 Last Admin: 03/04/17 17:30 Dose: 40 mg *Q Meaningful Use (DIS) - VTE *Q VTE Criteria *Q: - Stroke *Q Stroke Criteria *Q: - AMI *Q AMI Criteria *Q:
--- NOTE | 2017-03-07 09:10 | ER ---
DATE SEEN: 03/04/2017 HISTORY OF PRESENT ILLNESS: The patient is a 66-year-old gentleman who presents to the emergency department with abdominal pain he has had over the last several days, as well as nausea and diarrhea. This diarrhea started just today. He has been nauseous, said he has had some episodes of dark stool as well and some hematuria. Denies any lightheadedness or dizziness. No fever or chills. No shortness of breath. MEDICATIONS: 1. Peralta. 2. Pradaxa. 3. Glucophage. 4. Flomax. 5. Neurontin. 6. Coreg. 7. Aspirin. 8. Albuterol. 9. Trazodone. 10.Oxycodone. 11.Lipitor. ALLERGIES: Latex, paroxetine, bupropion. PAST MEDICAL HISTORY: Cholecystitis, abdominal pain, liver abscess, hyperlipidemia, coronary artery disease. REVIEW OF SYSTEMS: CARDIAC: No chest pain. PHYSICAL EXAMINATION: VITAL SIGNS: Pulse 114, blood pressure 101/79, respiratory rate 18, 97% on room air. GENERAL: He is in no apparent acute distress. LUNGS: Clear to auscultation. HEART: Regular rate and rhythm. No rubs, gallops, or murmurs. ABDOMEN: Mild tenderness to right lower quadrant. No guarding or rebound. Positive bowel sounds. No costovertebral angle tenderness. EXTREMITIES: Trace edema in ankles. RECTAL: Good rectal tone. Does have significant erythema around his rectal area, fungal in appearance. LABORATORY DATA: CBC: His white count is elevated 18,300. INR 1.2. Electrolytes within normal limits. Creatinine 1.0, glucose 171, AST 130, ALT 240, alkaline phosphatase 153, albumin 2.9. Urine: 30 protein, large blood, small bili, moderate leukocyte esterase, wbc's 10 to 20, yeast moderate, bacteria many. IMAGING: Abdominal CT done showed 1) Some stranding along the urinary bladder, possible early cystitis; 2) Colonic diverticulosis with no evidence of diverticulitis. EMERGENCY DEPARTMENT COURSE: The patient received normal saline 1 L wide open. Pressures remained stable. He had several bouts of diarrhea. He received Zofran 4 mg IV and Protonix 40 mg IV. ASSESSMENT: 1. Gastroenteritis. 2. Diarrhea. 3. Abdominal pain. 4. Genital yeast infection. 5. Urinary tract infection. PLAN: The patient lives by himself, unable to care for himself, with frequent diarrhea and weakness. Hemodynamically stable. Unclear whether or not he has a GI bleed or not. His hemoglobin again is stable. We will continue to watch him for observation, rehydrate him, support his fluid loss, start antibiotics- penicillin and Cipro. We will admit him for observation. /[id number] NICCI/YRIS
== END 2017-03-06 17:55 | disposition home or self-care (01) ==
LOC: FB.ED 16:39 → FB.MS 21:03
PROVIDERS: ADMIT Physical Medicine & Rehabilitation Sports Medicine; ATTEND Physical Medicine & Rehabilitation Sports Medicine
DX: K52.9 Noninfective gastroenteritis and colitis, unspecified (principal); N30.01 Acute cystitis with hematuria; R79.89 Other specified abnormal findings of blood chemistry; D69.6 Thrombocytopenia, unspecified; Z79.82 Long term (current) use of aspirin; Z79.899 Other long term (current) drug therapy; Z79.84 Long term (current) use of oral hypoglycemic drugs; Z88.8 Allergy status to other drugs, medicaments and biological substances; Z91.040 Latex allergy status; Z95.0 Presence of cardiac pacemaker; Z95.5 Presence of coronary angioplasty implant and graft; E11.9 Type 2 diabetes mellitus without complications; Z79.01 Long term (current) use of anticoagulants; Z90.49 Acquired absence of other specified parts of digestive tract; F17.210 Nicotine dependence, cigarettes, uncomplicated
CPT/HCPCS: 36415; 74177; 80053; 81001; 82150; 82272; 82962; 83605; 83690; 85025; 85610; 86850; 86900; 86901; 87040; 87086; 87088; 87186; 93005; 96361; 96365; 96372; 96375; 99284; A9270; C9113; J0696; J0744; J2405; J7040; J7050; Q9967; 96366; 99217; 99219; 99225; G0378

== ENCOUNTER 2018-12-31 11:39 | Emergency (ER) | payer MEDICARE ==
[2018-12-31] MEDS ORDERED: Ketorolac 30 MG/ML SDV IM ONE (12:14)
--- NOTE | 2018-12-31 12:22 | EDM.PDOC ---
ED HPI GENERAL MEDICAL PROBLEM - General Chief Complaint: Lower Extremity Injury/Pain Stated Complaint: RT HIP Time Seen by Provider: 12/31/18 12:07 Source of Information: Reports: Patient, Old Records History Limitations: Reports: No Limitations - History of Present Illness INITIAL COMMENTS - FREE TEXT/NARRATIVE: Eligio comes into [facility] ED by EMS with pain and spasms affecting the R hip and proximal thigh for 3 days. Sxs initially began while sitting at a computer, and have gradually escalated since. There is some lower back pain, but sxs seems largely confined to the R posterior hip region. There is pain with movement, ambulation, without weakness or loss of sensation. He has tried NSAIDs and [place] 5/325 without remission of sxs. Right Hip Pain Score (Numeric/FACES): 5 - Related Data Allergies Allergy/AdvReac Type Severity Reaction Status Date / Time bupropion HCl Allergy Nausea Verified 12/31/18 11:52 [From Wellbutrin] latex Allergy Rash Verified 12/31/18 11:52 paroxetine HCl [From Paxil] Allergy Shaking Verified 12/31/18 11:52 Home Meds: Home Meds Carvedilol [Coreg] 6.25 mg PO BID 07/17/15 [History] Latanoprost [Xalatan 0.005% Ophth Soln] 1 drop EYEBOTH BEDTIME 07/17/15 [History ] Multivitamin with Minerals [Multiple Vitamin] 1 tab PO DAILY 07/17/15 [History] Nitroglycerin [Nitrostat] 0.4 mg SL Q5M PRN 07/17/15 [History] Sennosides/Docusate Sodium [Senna-Docusate Sodium Tablet] 1 tab PO DAILY PRN [History] atorvaSTATin [Lipitor] 40 mg PO DAILY 07/17/15 [History] traZODone 50 mg PO BEDTIME PRN 07/17/15 [History] Aspirin [Halfprin] 81 mg PO DAILY tab.ec 07/22/15 [Rx] Albuterol [Ventolin HFA] 1 - 2 puff INH Q4H PRN 10/13/15 [History] oxyCODONE 5 mg PO Q6H PRN 10/13/15 [History] Dabigatran [Pradaxa] 1 cap PO BID 03/04/17 [History] Gabapentin [Neurontin] 1 cap PO BID 03/04/17 [History] Hydrocodone/Acetaminophen [[place] 5-325] 1 tab PO Q3D PRN 03/04/17 [History] metFORMIN [Glucophage] 1 tab PO BID 03/04/17 [History] Past Medical History HEENT History: Reports: Impaired Vision, Other (See Below) Other HEENT History: Wears glasses. Cardiovascular History: Reports: Afib, Pacemaker, Stents, Other (See Below) Other Cardiovascular History: Stents X2. Respiratory History: Reports: Pneumonia, Recurrent Other Respiratory History: pneumonia as a child Gastrointestinal History: Reports: Other (See Below) Other Gastrointestinal History: ABSCESS ON LIVER Genitourinary History: Reports: None Other Genitourinary History: denies urinary hx; states urinary urgency started past few days Musculoskeletal History: Reports: Back Pain, Chronic, Fracture Other Musculoskeletal History: Left arm injury--required elbow and forearm surgery. Has difficulty walking due to low back pain and arthritis. Neurological History: Reports: Brain Injury, Head Trauma, Other (See Below) Other Neuro History: Fell off chair resulting in subdural hematoma, about 10 years ago. Required surgical intervention. Psychiatric History: Reports: None Endocrine/Metabolic History: Reports: Diabetes, Type II Hematologic History: Reports: Anticoagulation Therapy Immunologic History: Reports: None Oncologic (Cancer) History: Reports: None Dermatologic History: Reports: None - Infectious Disease History Infectious Disease History: Reports: Other (See Below) Other Infectious Disease History: Patient doesn't know what childhood diseases he may have had. - Past Surgical History Cardiovascular Surgical History: Reports: Coronary Artery Stent GI Surgical History: Reports: Cholecystectomy Other GI Surgeries/Procedures: states ~ a year ago, went in for his gallbladder removal; they ended up doing an incision, as the. gallbladder was in scar tissue, and the surgeon, Meena, lacerated a bile duct; says he was told. around that time he had a "severe liver infection" and in the hospital a while; denies it being. hepatitis Male Surgical History: Reports: None Musculoskeletal Surgical History: Reports: Arthroscopic Knee, Other (See Below) Other Musculoskeletal Surgeries/Procedures:: Left knee scope X2. Social & Family History - Family History Cardiac: Reports: CAD - Caffeine Use Caffeine Use: Reports: Coffee, Soda, Tea - Living Situation & Occupation Living situation: Reports: Review of Systems - Review of Systems Review Of Systems: ROS reveals no pertinent complaints other than HPI. ED EXAM, GENERAL - Physical Exam Exam: See Below Exam Limited By: Physical Impairment General Appearance: Alert, WD/WN, Anxious, Mild Distress, Obese Head: Normocephalic Neck: Normal Inspection, Supple, Non-Tender, Full Range of Motion Respiratory/Chest: Lungs Clear, Normal Breath Sounds, Chest Non-Tender Cardiovascular: Regular Rate, Rhythm, No Murmur GI/Abdominal: Normal Bowel Sounds, Soft, Non-Tender, No Organomegaly, No Distention, No Mass (Male) Exam: No Hernia, Normal Inspection Rectal (Males) Exam: Normal Exam Back Exam: Normal Inspection, Other (R sciatic notch tenderness) Extremities: Limited Range of Motion (R trochanteric tenderness, no sciatic notch tenderness, pain with motion of R hip. ) Neurological: Alert, Oriented, CN II-XII Intact, Normal Cognition Psychiatric: Normal Affect, Anxious Skin Exam: Warm, Dry, Intact, Normal Color Lymphatic: No Adenopathy Course - Vital Signs Text/Narrative:: Following assessment, I administered Toradol 30 mg IM pending results of x rays of R hip and pelvis, no acute changes seen. 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 He will follow up with Ortho if needed. Last Recorded V/S: Last Vital Signs Temp 36.8 C 12/31/18 12:04 Pulse 101 H 12/31/18 12:04 Resp 18 12/31/18 12:04 BP 140/88 12/31/18 12:04 Pulse Ox 97 12/31/18 12:04 - Orders/Labs/Meds Orders: Active Orders 24 hr Category Date Time Status Hip Min 2V or 3V w Pelvis Rt [CR] Stat Exams 12/31/18 12:15 Taken Meds: Medications Discontinued Medications Generic Name Dose Route Start Last Admin Trade Name Freq PRN Reason Stop Dose Admin Bupivacaine HCl 3 ml 12/31/18 13:53 12/31/18 13:53 Sensorcaine-Mpf 0.5% INJECT 12/31/18 13:54 3 ml ONETIME ONE Administration Ketorolac Tromethamine 30 mg 12/31/18 12:14 12/31/18 12:21 Toradol IM 12/31/18 12:15 30 mg ONETIME ONE Administration Lidocaine HCl 3 ml 12/31/18 13:41 12/31/18 13:54 Xylocaine-Mpf 0.5% INJECT 12/31/18 13:42 Not Given NOW STA Triamcinolone Acetonide 80 mg 12/31/18 13:43 12/31/18 13:53 Kenalog-40 INJECT 12/31/18 13:44 80 mg ONETIME ONE Administration Departure - Departure Time of Disposition: 14:10 Disposition: Home, Self-Care 01 Condition: Fair Clinical Impression: Trochanteric bursitis of right hip - Discharge Information *PRESCRIPTION DRUG MONITORING PROGRAM REVIEWED*: Not Applicable *COPY OF PRESCRIPTION DRUG MONITORING REPORT IN PATIENT OLEG: Not Applicable Referrals: Ochoa Banks MD [Primary Care Provider] - Forms: ED Department Discharge - Problem List & Annotations (1) Trochanteric bursitis of right hip SNOMED Code(s): 9151196 Code(s): M70.61 - TROCHANTERIC BURSITIS, RIGHT HIP Status: Acute Current Visit: Yes Annotation/Comment:: Eligio may take NSAIDs as directed, rest, and cool packs for comfort, ambulation as tolerated. - Problem List Review Problem List Initiated/Reviewed/Updated: Yes - My Orders Last 24 Hours: My Active Orders 12/31/18 12:15 Hip Min 2V or 3V w Pelvis Rt [CR] Stat - Assessment/Plan Last 24 Hours: My Active Orders 12/31/18 12:15 Hip Min 2V or 3V w Pelvis Rt [CR] Stat Plan: Follow up with Ortho if needed.
[2018-12-31 12:43] VITALS: BP 140/88
[2018-12-31] MEDS ORDERED: Lidocaine 0.5% 50 ML SDV INJECT STA (13:41)
[2018-12-31] MEDS ORDERED: Triamcinolone Acetonide 40 MG/ML 1 ML MDV INJECT ONE (13:43)
[2018-12-31] MEDS ORDERED: Bupivacaine 0.5% 10 ML SDV INJECT ONE (13:53)
--- NOTE | 2018-12-31 14:01 | PCM.CONS ---
H&P History of Present Illness - General Date of Service: 12/31/18 Admit Problem/Dx: right hip trochanteric bursitis Source of Information: Patient, Provider History Limitations: Reports: No Limitations - History of Present Illness Onset of Symptoms: Reports: Sudden Symptom Onset Date: 12/31/18 Duration of Symptoms: Reports: Day(s): Location: Reports: Lower Extremity, Right Quality: Reports: Stabbing, Throbbing Severity: Moderate Improves with: Reports: Immobilization Worsens with: Reports: Movement Associated Symptoms: Reports: No Other Symptoms Right Hip Pain Score (Numeric/FACES): 5 - Related Data Allergies/Adverse Reactions: Allergies Allergy/AdvReac Type Severity Reaction Status Date / Time bupropion HCl Allergy Nausea Verified 12/31/18 11:52 [From Wellbutrin] latex Allergy Rash Verified 12/31/18 11:52 paroxetine HCl [From Paxil] Allergy Shaking Verified 12/31/18 11:52 Home Medications: Home Meds Carvedilol [Coreg] 6.25 mg PO BID 07/17/15 [History] Latanoprost [Xalatan 0.005% Ophth Soln] 1 drop EYEBOTH BEDTIME 07/17/15 [History ] Multivitamin with Minerals [Multiple Vitamin] 1 tab PO DAILY 07/17/15 [History] Nitroglycerin [Nitrostat] 0.4 mg SL Q5M PRN 07/17/15 [History] Sennosides/Docusate Sodium [Senna-Docusate Sodium Tablet] 1 tab PO DAILY PRN [History] atorvaSTATin [Lipitor] 40 mg PO DAILY 07/17/15 [History] traZODone 50 mg PO BEDTIME PRN 07/17/15 [History] Aspirin [Halfprin] 81 mg PO DAILY tab.ec 07/22/15 [Rx] Albuterol [Ventolin HFA] 1 - 2 puff INH Q4H PRN 10/13/15 [History] oxyCODONE 5 mg PO Q6H PRN 10/13/15 [History] Dabigatran [Pradaxa] 1 cap PO BID 03/04/17 [History] Gabapentin [Neurontin] 1 cap PO BID 03/04/17 [History] Hydrocodone/Acetaminophen [[place] 5-325] 1 tab PO Q3D PRN 03/04/17 [History] metFORMIN [Glucophage] 1 tab PO BID 03/04/17 [History] Past Medical History HEENT History: Reports: Impaired Vision, Other (See Below) Other HEENT History: Wears glasses. Cardiovascular History: Reports: Afib, Pacemaker, Stents, Other (See Below) Other Cardiovascular History: Stents X2. Respiratory History: Reports: Pneumonia, Recurrent Other Respiratory History: pneumonia as a child Gastrointestinal History: Reports: Other (See Below) Other Gastrointestinal History: ABSCESS ON LIVER Genitourinary History: Reports: None Other Genitourinary History: denies urinary hx; states urinary urgency started past few days Musculoskeletal History: Reports: Back Pain, Chronic, Fracture Other Musculoskeletal History: Left arm injury--required elbow and forearm surgery. Has difficulty walking due to low back pain and arthritis. Neurological History: Reports: Brain Injury, Head Trauma, Other (See Below) Other Neuro History: Fell off chair resulting in subdural hematoma, about 10 years ago. Required surgical intervention. Psychiatric History: Reports: None Endocrine/Metabolic History: Reports: Diabetes, Type II Hematologic History: Reports: Anticoagulation Therapy Immunologic History: Reports: None Oncologic (Cancer) History: Reports: None Dermatologic History: Reports: None - Infectious Disease History Infectious Disease History: Reports: Other (See Below) Other Infectious Disease History: Patient doesn't know what childhood diseases he may have had. - Past Surgical History Cardiovascular Surgical History: Reports: Coronary Artery Stent GI Surgical History: Reports: Cholecystectomy Other GI Surgeries/Procedures: states ~ a year ago, went in for his gallbladder removal; they ended up doing an incision, as the. gallbladder was in scar tissue, and the surgeon, Meena, lacerated a bile duct; says he was told. around that time he had a "severe liver infection" and in the hospital a while; denies it being. hepatitis Male Surgical History: Reports: None Musculoskeletal Surgical History: Reports: Arthroscopic Knee, Other (See Below) Other Musculoskeletal Surgeries/Procedures:: Left knee scope X2. Social & Family History - Family History Family Medical History: Noncontributory Cardiac: Reports: CAD - Tobacco Use Smoking Status *Q: Never Smoker Second Hand Smoke Exposure: No - Caffeine Use Caffeine Use: Reports: Coffee, Soda, Tea - Recreational Drug Use Recreational Drug Use: No - Living Situation & Occupation Living situation: Reports: H&P Review of Systems - Review of Systems: Review Of Systems: See Below General: Reports: No Symptoms HEENT: Reports: No Symptoms Pulmonary: Reports: No Symptoms Cardiovascular: Reports: No Symptoms Gastrointestinal: Reports: No Symptoms Genitourinary: Reports: No Symptoms Musculoskeletal: Reports: Leg Pain, Muscle Pain, Muscle Stiffness Skin: Reports: No Symptoms Psychiatric: Reports: No Symptoms Neurological: Reports: No Symptoms Hematologic/Lymphatic: Reports: No Symptoms Immunologic: Reports: No Symptoms Exam - Exam Exam: See Below - Vital Signs Vital Signs: Last Vital Signs Temp 98.2 F 12/31/18 12:04 Pulse 101 H 12/31/18 12:04 Resp 18 12/31/18 12:04 BP 140/88 12/31/18 12:04 Pulse Ox 97 12/31/18 12:04 - Exam General: Alert, Oriented, Cooperative, Moderate Distress HEENT: Mucosa Moist & [place], Pupils Equal, Pupils Reactive, TMs Clear Neck: Supple, Trachea Midline GI/Abdominal Exam: No Distention Extremities: Leg Pain, Limited Range of Motion Peripheral Pulses: 2+: Dorsalis Pedis (R) Skin: Warm, Dry, Intact Neuro Extensive - Mental Status: Alert, Oriented x3, Normal Mood/Affect, Normal Cognition, Memory Intact Psychiatric: Alert, Normal Affect, Normal Mood Consult PN Assessment/Plan POD#: 0 Procedures: Procedures ANESTH LOW INTESTINE SCOPE (11/25/15) ASSAY OF AMYLASE (03/04/17) ASSAY OF LACTIC ACID (03/04/17) ASSAY OF LIPASE (03/04/17) BLOOD CULTURE FOR BACTERIA (03/04/17) BLOOD TYPING SEROLOGIC ABO (03/04/17) BLOOD TYPING SEROLOGIC RH(D) (03/04/17) C-REACTIVE PROTEIN (11/03/15) COLONOSCOPY AND BIOPSY (11/25/15) COMPLETE CBC W/AUTO DIFF WBC (03/04/17) COMPREHEN METABOLIC PANEL (03/04/17) CT ABD & PELV 1/> REGNS (10/06/17) CT ABD & PELV W/CONTRAST (03/04/17) ELECTROCARDIOGRAM TRACING (03/04/17) EMERGENCY DEPT VISIT (03/04/17) EMERGENCY DEPT VISIT (10/05/15) GLUCOSE BLOOD TEST (03/04/17) HELICOBACTER PYLORI ANTIBODY (10/05/15) HYDRATE IV INFUSION ADD-ON (03/04/17) KNEE ARTHROSCOPY/SURGERY (07/21/15) MICROBE SUSCEPTIBLE ELLEN (03/04/17) OCCULT BLD FECES 1-3 TESTS (03/04/17) OFFICE/OUTPATIENT VISIT EST (11/24/15) OFFICE/OUTPATIENT VISIT EST (11/03/15) OT EVALUATION (07/21/15) PROTHROMBIN TIME (03/04/17) PT EVALUATION (07/21/15) RBC ANTIBODY SCREEN (03/04/17) RBC SED RATE NONAUTOMATED (11/03/15) ROUTINE VENIPUNCTURE (03/04/17) SELF CARE MNGMENT TRAINING (07/21/15) THER/PROPH/DIAG INJ SC/IM (03/04/17) THER/PROPH/DIAG IV INF ADDON (10/05/15) THER/PROPH/DIAG IV INF INIT (03/04/17) THERAPEUTIC ACTIVITIES (07/21/15) TISSUE EXAM BY PATHOLOGIST (11/25/15) TX/PRO/DX INJ NEW DRUG ADDON (03/04/17) URINALYSIS AUTO W/SCOPE (03/04/17) URINE BACTERIA CULTURE (03/04/17) URINE CULTURE/COLONY COUNT (03/04/17) WHEELCHAIR MNGMENT TRAINING (07/21/15) (1) Trochanteric bursitis of right hip SNOMED Code(s): 6133290 Code(s): M70.61 - TROCHANTERIC BURSITIS, RIGHT HIP Current Visit: Yes Comment: Eligio may take NSAIDs as directed, rest, and cool packs for comfort, ambulation as tolerated. Problem List Initiated/Reviewed/Updated: Yes Plan: injected right hip with 0.5% bupivicaine 3ml and 80 mg kenalog using sterile technique. tolerated well.
--- NOTE | 2018-12-31 14:41 | CR ---
INDICATION: Pain affecting right hip and lower back, right hip/proximal thigh spasm times three days, no history of injury. RIGHT HIP WITH PELVIS: A single frontal view of the pelvis excluded a portion of the iliac bone laterally on the left and the lateral aspect of the left femur. Frontal and lateral views of the right hip were also obtained and showed evidence of a mild degree of hypertrophic changes at both hip joints with the joint spaces fairly well-maintained on the right and slightly narrowed craniolaterally on the left. Sacroiliac joints showed degenerative change, minimal on the right and mild on the left. There is asymmetrical sacralization of L5 on the left with hypertrophic degenerative changes at the interface on the left and degenerative disk disease at L4-5. At the lesser trochanter on the right, there is what appears to be periosteal new bone formation. This could be on the basis of a tug lesion but should be correlated clinically. A definite acute process is not identified. Depending upon clinical correlation, additional workup of this finding may be warranted, such as nuclear bone imaging examination. Also noted were calcifications in the iliac arteries. IMPRESSION: 1. Possible tug lesion at the lesser trochanter on the right. Followup may be warranted, such as nuclear bone imaging, to determine whether this represents a sub-acute finding or significant active disease. 2. Degenerative changes at the hip joints with slight narrowing of the craniolateral joint space on the left. 3. Degenerative changes and disk disease lumbosacral spine. 4. Mild degenerative changes left sacroiliac joint, minimal at the right sacroiliac joint. MTDD
== END 2018-12-31 14:30 | disposition home or self-care (01) ==
LOC: FB.ED 11:39
DX: M70.61 Trochanteric bursitis, right hip (principal); I48.91 Unspecified atrial fibrillation; Z95.5 Presence of coronary angioplasty implant and graft; E11.9 Type 2 diabetes mellitus without complications; Z88.8 Allergy status to other drugs, medicaments and biological substances; Z91.040 Latex allergy status; Z79.899 Other long term (current) drug therapy; Z79.84 Long term (current) use of oral hypoglycemic drugs
CPT/HCPCS: 73502-RT; 96372; 99282; J1885; J3301; J3490

== ENCOUNTER 2019-05-19 06:05 | Emergency (ER) | payer MEDICARE ==
[2019-05-19] MEDS ORDERED: Acetaminophen/HYDROcodone 325-5 MG Tab PO ONE (07:13)
--- NOTE | 2019-05-19 07:18 | EDM.PDOC ---
ED HPI GENERAL MEDICAL PROBLEM - General Chief Complaint: Lower Extremity Injury/Pain Stated Complaint: LEG PAIN Time Seen by Provider: 05/19/19 07:14 Source of Information: Reports: Patient History Limitations: Reports: No Limitations - History of Present Illness INITIAL COMMENTS - FREE TEXT/NARRATIVE: Leg pain x 24h. Swelling. No fever,or SOB. Has a h/o paroxysmal afib previously on Pradaxa,but now recently switched to Coumadin. INR was 2.0 Monday. Left Lower Leg Pain Score (Numeric/FACES): 9 - Related Data Allergies Allergy/AdvReac Type Severity Reaction Status Date / Time bupropion HCl Allergy Nausea Verified 12/31/18 11:52 [From Wellbutrin] latex Allergy Rash Verified 12/31/18 11:52 mupirocin [From Bactroban] Allergy Hives Verified 05/19/19 07:00 paroxetine HCl [From Paxil] Allergy Shaking Verified 12/31/18 11:52 Home Meds: Home Meds Carvedilol [Coreg] 6.25 mg PO BID 07/17/15 [History] Latanoprost [Xalatan 0.005% Ophth Soln] 1 drop EYEBOTH BEDTIME 07/17/15 [History ] Multivitamin with Minerals [Multiple Vitamin] 1 tab PO DAILY 07/17/15 [History] Nitroglycerin [Nitrostat] 0.4 mg SL Q5M PRN 07/17/15 [History] atorvaSTATin [Lipitor] 40 mg PO DAILY 07/17/15 [History] traZODone 50 mg PO BEDTIME PRN 07/17/15 [History] Aspirin [Halfprin] 81 mg PO DAILY tab.ec 07/22/15 [Rx] Albuterol [Ventolin HFA] 1 - 2 puff INH Q4H PRN 10/13/15 [History] Gabapentin [Neurontin] 1 cap PO BID 03/04/17 [History] Hydrocodone/Acetaminophen [[place] 5-325] 1 tab PO Q3D PRN 03/04/17 [History] metFORMIN [Glucophage] 1 tab PO BID 03/04/17 [History] Amiodarone [Cordarone] 200 mg PO DAILY 05/19/19 [History] Clopidogrel Bisulfate [Clopidogrel] 75 mg PO DAILY 05/19/19 [History] Omeprazole 20 mg PO DAILY 05/19/19 [History] Tamsulosin HCl 0.4 mg PO DAILY 05/19/19 [History] Warfarin Sodium 2.5 mg PO ASDIRECTED 05/19/19 [History] Past Medical History HEENT History: Reports: Impaired Vision, Other (See Below) Other HEENT History: Wears glasses. Cardiovascular History: Reports: Afib, Pacemaker, Stents, Other (See Below) Other Cardiovascular History: Stents X2. Respiratory History: Reports: Pneumonia, Recurrent Other Respiratory History: pneumonia as a child Gastrointestinal History: Reports: Other (See Below) Other Gastrointestinal History: ABSCESS ON LIVER Genitourinary History: Reports: None Other Genitourinary History: denies urinary hx; states urinary urgency started past few days Musculoskeletal History: Reports: Back Pain, Chronic, Fracture Other Musculoskeletal History: Left arm injury--required elbow and forearm surgery. Has difficulty walking due to low back pain and arthritis. Neurological History: Reports: Brain Injury, Head Trauma, Other (See Below) Other Neuro History: Fell off chair resulting in subdural hematoma, about 10 years ago. Required surgical intervention. Psychiatric History: Reports: None Endocrine/Metabolic History: Reports: Diabetes, Type II Hematologic History: Reports: Anticoagulation Therapy Immunologic History: Reports: None Oncologic (Cancer) History: Reports: None Dermatologic History: Reports: None - Infectious Disease History Infectious Disease History: Reports: Other (See Below) Other Infectious Disease History: Patient doesn't know what childhood diseases he may have had. - Past Surgical History Cardiovascular Surgical History: Reports: Coronary Artery Stent GI Surgical History: Reports: Cholecystectomy Other GI Surgeries/Procedures: states ~ a year ago, went in for his gallbladder removal; they ended up doing an incision, as the. gallbladder was in scar tissue, and the surgeon, Meena, lacerated a bile duct; says he was told. around that time he had a "severe liver infection" and in the hospital a while; denies it being. hepatitis Male Surgical History: Reports: None Musculoskeletal Surgical History: Reports: Arthroscopic Knee, Other (See Below) Other Musculoskeletal Surgeries/Procedures:: Left knee scope X2. Social & Family History - Family History Family Medical History: Noncontributory Cardiac: Reports: CAD - Tobacco Use Smoking Status *Q: Current Every Day Smoker Years of Tobacco use: 50 Packs/Tins Daily: 1.5 - Caffeine Use Caffeine Use: Reports: Coffee, Soda, Tea - Living Situation & Occupation Living situation: Reports: Review of Systems - Review of Systems Review Of Systems: ROS reveals no pertinent complaints other than HPI. ED EXAM, GENERAL - Physical Exam Exam: See Below Exam Limited By: No Limitations General Appearance: Alert, WD/WN Ears: Normal External Exam Ear Exam: Bilateral Ear: Auricle Normal, Canal Normal, TM normal Respiratory/Chest: No Respiratory Distress Cardiovascular: Normal Peripheral Pulses Extremities: Pedal Edema, Tigist's Sign, Leg Pain, Increased Warmth, Other (L calf tender.). No: Redness Course - Vital Signs Last Recorded V/S: Last Vital Signs Temp 97.5 F 05/19/19 06:05 Pulse 89 05/19/19 06:05 Resp 18 05/19/19 06:05 BP 116/65 05/19/19 06:05 Pulse Ox 100 05/19/19 06:05 - Orders/Labs/Meds Orders: Active Orders 24 hr Category Date Time Status VL Duplex Lwr Ext Veins Ltd Lt [US] Stat Exams 05/19/19 07:13 Ordered Labs: Laboratory Tests 05/19/19 05/19/19 Range/Units 06:30 06:30 D-Dimer, Quantitative 0.40 (0.0-0.59) mg/LFEU Sodium 141 (135-145) mmol/L Potassium 3.9 (3.5-5.3) mmol/L Chloride 105 (100-110) mmol/L Carbon Dioxide 27 (21-32) mmol/L BUN 14 (7-18) mg/dL Creatinine 1.0 (0.70-1.30) mg/dL Est Cr Clr Drug Dosing 76.52 mL/min Estimated GFR (MDRD) > 60 (>60) BUN/Creatinine Ratio 14.0 (9-20) Glucose 153 H (80-116) mg/dL Calcium 8.7 (8.6-10.2) mg/dL Meds: Medications Discontinued Medications Generic Name Dose Route Start Last Admin Trade Name Freq PRN Reason Stop Dose Admin Hydrocodone Bitart/Acetaminophen 1 tab 05/19/19 07:13 [place] 325-5 Mg PO 05/19/19 07:14 ONETIME ONE Departure - Departure Time of Disposition: 07:17 Disposition: Still A Patient 30 Clinical Impression: Leg pain - Discharge Information Referrals: Ochoa Banks MD [Primary Care Provider] - - Problem List & Annotations (1) Leg pain SNOMED Code(s): 02944983 Code(s): M79.606 - PAIN IN LEG, UNSPECIFIED Status: Acute Current Visit: Yes Qualifiers: Laterality: left Qualified Code(s): M79.605 - Pain in left leg - Problem List Review Problem List Initiated/Reviewed/Updated: Yes - My Orders Last 24 Hours: My Active Orders 05/19/19 07:13 VL Duplex Lwr Ext Veins Ltd Lt [US] Stat - Assessment/Plan Last 24 Hours: My Active Orders 05/19/19 07:13 VL Duplex Lwr Ext Veins Ltd Lt [US] Stat Plan: [place] x1. D-Dimer negative,but still suspicious for DVT. Obtain US. Dr Vallejo to take over.
[2019-05-19] MEDS ORDERED: cefTRIAXone 1 GM Vial IM ONE (08:52)
[2019-05-19 09:30] VITALS: BP 110/50
== END 2019-05-19 09:45 | disposition still patient (30) ==
LOC: FB.ED 06:05
DX: M79.662 Pain in left lower leg (principal); I48.91 Unspecified atrial fibrillation; E11.9 Type 2 diabetes mellitus without complications; M19.90 Unspecified osteoarthritis, unspecified site; F17.210 Nicotine dependence, cigarettes, uncomplicated; Z91.040 Latex allergy status; Z88.8 Allergy status to other drugs, medicaments and biological substances; Z79.82 Long term (current) use of aspirin; Z79.84 Long term (current) use of oral hypoglycemic drugs; Z79.01 Long term (current) use of anticoagulants; Z79.899 Other long term (current) drug therapy
CPT/HCPCS: 36415; 80048; 85025; 85379; 93971; 96372; 99284; A9270; J0696

== ENCOUNTER 2019-06-23 23:22 | Observation (INO) | payer MEDICARE ==
[2019-06-23] MEDS: Sodium Chloride 0.9% 1,000 ML IV SCH (23:35)
[2019-06-23] MEDS ORDERED: Ketorolac 30 MG/ML SDV IVPUSH ONE (23:35)
--- NOTE | 2019-06-23 23:35 | EDM.PDOC ---
ED HPI GENERAL MEDICAL PROBLEM - General Stated Complaint: SOB Time Seen by Provider: 06/23/19 23:22 Source of Information: Reports: Patient, EMS History Limitations: Reports: Physical Impairment - History of Present Illness INITIAL COMMENTS - FREE TEXT/NARRATIVE: 69 y.o.w.m with multiple medical issues, including HTN, IDDM, came to the ed due to weakness and abd. pain after he took his evening meds. He suddenly could not see. he called 911. His BP was 67/46 when EMS arrived. NS bolus was given, His BP on arrival was in the 80s. Pt is too weak to ambulate. No SOB, no CP. No N/V/D no Trauma. BP 76/56 RR 22 Pulse ox 100% on 2 liter O2 by NC. Temp 97.8 Onset Date: 06/23/19 Onset Time: 22:00 Duration: Hour(s): Location: Reports: Abdomen Quality: Reports: Dull, Same as Previous Episode Severity: Moderate Improves with: Reports: None Worsens with: Reports: Movement Context: Reports: Other (taking his meds at 10 pm last night made his symptoms worse. ) Associated Symptoms: Reports: Loss of Appetite, Weakness Right Middle Abdominal Pain Score (Numeric/FACES): 4 - Related Data Allergies Allergy/AdvReac Type Severity Reaction Status Date / Time bupropion HCl Allergy Nausea Verified 06/24/19 00:29 [From Wellbutrin] latex Allergy Rash Verified 06/24/19 00:29 mupirocin [From Bactroban] Allergy Hives Verified 06/24/19 00:29 paroxetine HCl [From Paxil] Allergy Shaking Verified 06/24/19 00:29 Home Meds: Home Meds Latanoprost [Xalatan 0.005% Ophth Soln] 1 drop EYEBOTH BEDTIME 07/17/15 [History ] Multivitamin with Minerals [Multiple Vitamin] 1 tab PO DAILY 07/17/15 [History] Nitroglycerin [Nitrostat] 0.4 mg SL Q5M PRN 07/17/15 [History] traZODone 50 mg PO BEDTIME PRN 07/17/15 [History] Albuterol [Ventolin HFA] 1 - 2 puff INH Q4H PRN 10/13/15 [History] Gabapentin [Neurontin] 300 mg PO BID 03/04/17 [History] metFORMIN [Glucophage] 500 mg PO BIDAC 03/04/17 [History] Amiodarone [Cordarone] 200 mg PO DAILY 05/19/19 [History] Clopidogrel Bisulfate [Clopidogrel] 75 mg PO DAILY 05/19/19 [History] Omeprazole 20 mg PO BEDTIME 05/19/19 [History] Tamsulosin HCl 0.8 mg PO DAILY 05/19/19 [History] Warfarin Sodium 2.5 mg PO ASDIRECTED 05/19/19 [History] Carvedilol 25 mg PO BID 06/24/19 [History] Lisinopril 5 mg PO BEDTIME 06/24/19 [History] atorvaSTATin [Lipitor] 40 mg PO DAILY 06/24/19 [History] Past Medical History HEENT History: Reports: Impaired Vision, Other (See Below) Other HEENT History: Wears glasses. Cardiovascular History: Reports: Afib, Pacemaker, Stents, Other (See Below) Other Cardiovascular History: Stents X2. Respiratory History: Reports: Pneumonia, Recurrent Other Respiratory History: pneumonia as a child Gastrointestinal History: Reports: Other (See Below) Other Gastrointestinal History: ABSCESS ON LIVER Genitourinary History: Reports: None Other Genitourinary History: denies urinary hx; states urinary urgency started past few days Musculoskeletal History: Reports: Back Pain, Chronic, Fracture Other Musculoskeletal History: Left arm injury--required elbow and forearm surgery. Has difficulty walking due to low back pain and arthritis. Neurological History: Reports: Brain Injury, Head Trauma, Other (See Below) Other Neuro History: Fell off chair resulting in subdural hematoma, about 10 years ago. Required surgical intervention. Psychiatric History: Reports: None Endocrine/Metabolic History: Reports: Diabetes, Type II Hematologic History: Reports: Anticoagulation Therapy Immunologic History: Reports: None Oncologic (Cancer) History: Reports: None Dermatologic History: Reports: None - Infectious Disease History Infectious Disease History: Reports: Other (See Below) Other Infectious Disease History: Patient doesn't know what childhood diseases he may have had. - Past Surgical History Cardiovascular Surgical History: Reports: Coronary Artery Stent GI Surgical History: Reports: Cholecystectomy Other GI Surgeries/Procedures: states ~ a year ago, went in for his gallbladder removal; they ended up doing an incision, as the. gallbladder was in scar tissue, and the surgeon, Meena, lacerated a bile duct; says he was told. around that time he had a "severe liver infection" and in the hospital a while; denies it being. hepatitis Male Surgical History: Reports: None Musculoskeletal Surgical History: Reports: Arthroscopic Knee, Other (See Below) Other Musculoskeletal Surgeries/Procedures:: Left knee scope X2. Social & Family History - Family History Family Medical History: Noncontributory Cardiac: Reports: CAD - Caffeine Use Caffeine Use: Reports: Coffee, Soda, Tea - Living Situation & Occupation Living situation: Reports: ED ROS GENERAL - Review of Systems Review Of Systems: See Below Constitutional: Reports: Weakness HEENT: Reports: No Symptoms Respiratory: Reports: No Symptoms Cardiovascular: Reports: No Symptoms Endocrine: Reports: No Symptoms GI/Abdominal: Reports: Abdominal Pain : Reports: No Symptoms Musculoskeletal: Reports: No Symptoms Skin: Reports: No Symptoms Neurological: Reports: No Symptoms Psychiatric: Reports: No Symptoms Hematologic/Lymphatic: Reports: No Symptoms Immunologic: Reports: No Symptoms ED EXAM, GI/ABD - Physical Exam Exam: See Below Exam Limited By: Physical Impairment General Appearance: Alert, Moderate Distress, Obese Eyes: Bilateral: Normal Appearance Ears: Normal External Exam Nose: Normal Inspection, Normal Mucosa Throat/Mouth: Normal Lips, Normal Voice, No Airway Compromise Head: Atraumatic, Normocephalic Neck: Normal Inspection, Supple, Non-Tender, Full Range of Motion Respiratory/Chest: No Respiratory Distress, Lungs Clear, Normal Breath Sounds, No Accessory Muscle Use, Chest Non-Tender Cardiovascular: Normal Peripheral Pulses, Regular Rate, Rhythm GI/Abdominal Exam: Normal Bowel Sounds, Pelvis Stable, Tender (RUQ od abdomen), Hepatomegaly (Male) Exam: Deferred Rectal (Males) Exam: Deferred Back Exam: Normal Inspection, Full Range of Motion Extremities: Normal Inspection, Normal Range of Motion, Non-Tender, Normal Capillary Refill Neurological: Alert, Oriented, CN II-XII Intact, Normal Cognition, Other ( unable to ambulate) Psychiatric: Normal Affect, Normal Mood Skin Exam: Warm, Dry, Intact, Normal Color, No Rash Lymphatic: No Adenopathy EKG INTERPRETATION EKG Date: 06/24/19 Time: 01:15 Rhythm: NSR Rate (Beats/Min): 92 [place]: Normal P-Wave: Present QRS: Normal ST-T: Normal QT: Normal Comparison: NA - No Prior EKG Course - Vital Signs Text/Narrative:: 69 y.o.w.m with multiple medical issues, including HTN, IDDM, came to the ed due to weakness and abd. pain after he took his evening meds. He suddenly could not see. he called 911. His BP was 67/46 when EMS arrived. NS bolus was given, His BP on arrival was in the 80s. Pt is too weak to ambulate. No SOB, no CP. No N/V/D no Trauma. BP 76/56 RR 22 Pulse ox 100% on 2 liter O2 by NC. Temp 97.8 PE: Obese 69 y.o.w.m. with abd.pain and low BP Imaging: CT abd/pelvis: Diverticulosis, S/O cholecystectomy with pneumobilia, 10 mm liver lesion. labs: WBC 15.5 HGB 11.4 BUN 29. Cr 2.7 (1.0) GFR 29 elevated liver enzymes, Lactic acid 3.0 Impression: Hypotension, Dehydration, Acute RI, RUQ abd. pain, 10 mm liver lesion. Tx: NS. Levaquin, Toradol. 2.25 am Consultation: Augie, Hospitalist, [facility]: Pt was accepted 3.10 am: Pt refused to go to [facility]. Reexam: Improved Plan: Admit to the meds floor [facility] 4.43 am: BP dropped to 76/57 again. Pt was stared on a Levophed drip. Pt agreed to be transferred to [facility] by EMS now 4.45 am Consultation: Dr. Gonzalez, Hospitalist: Cont hydration, accepted the pt Last Recorded V/S: Last Vital Signs Temp 37.4 C 06/24/19 03:35 Pulse 102 H 06/24/19 03:35 Resp 18 06/24/19 03:35 BP 82/45 L 06/24/19 00:45 Pulse Ox 91 L 06/24/19 03:35 - Orders/Labs/Meds Orders: Active Orders 24 hr Category Date Time Status Patient Status [ADT] Routine ADT 06/24/19 03:20 Active Bedrest Bedside Commode [RC] ASDIRECTED Care 06/24/19 03:20 Active Cardiac Monitoring [RC] CONTINUOUS Care 06/24/19 03:22 Active EKG Documentation Completion [RC] ASDIRECTED Care 06/24/19 01:08 Active Oxygen Therapy [RC] PRN Care 06/24/19 03:20 Active VTE/DVT Education [RC] Per Unit Routine Care 06/24/19 03:20 Active Vital Signs [RC] Q4H Care 06/24/19 03:20 Active Nothing per Oral Now Diet [DIET] Diet 06/24/19 Breakfast Ordered Abdomen Pelvis wo Cont [CT] Stat Exams 06/23/19 23:29 Taken Chest 1V Frontal [CR] Stat Exams 06/24/19 00:10 Taken CULTURE BLOOD [BC] Urgent Lab 06/24/19 00:20 Received CULTURE BLOOD [BC] Urgent Lab 06/24/19 00:25 Received Norepinephrine [Levophed] 4 mg Med 06/24/19 01:15 Active Dextrose 5% in Water 246 ml IV TITRATE Sodium Chloride 0.9% [Normal Saline] 1,000 ml Med 06/23/19 23:35 Active IV ASDIRECTED Sodium Chloride 0.9% [Saline Flush] Med 06/24/19 02:15 Active 10 ml FLUSH ASDIRECTED PRN Sodium Chloride 0.9% [Saline Flush] Med 06/24/19 03:20 Active 10 ml FLUSH ASDIRECTED PRN Blood Culture x2 Reflex Set [OM.PC] Urgent Oth 06/24/19 00:11 Ordered Peripheral IV Insertion Adult [OM.PC] Routine Oth 06/24/19 03:20 Ordered Resuscitation Status Routine Resus Stat 06/24/19 03:20 Ordered EKG 12 Lead [EK] Routine Ther 06/24/19 01:08 Ordered Medication Orders Sodium Chloride (Normal Saline) 1,000 mls @ 125 mls/hr IV ASDIRECTED QUINN Last Admin: 06/24/19 01:20 Dose: 250 mls/hr Infusion: 06/24/19 01:19 Dose: 999 mls/hr Infusion: 06/24/19 00:55 Dose: 999 mls/hr Infusion: 06/24/19 00:40 Dose: 125 mls/hr Infusion: 06/24/19 00:10 Dose: 999 mls/hr Admin: 06/23/19 23:35 Dose: 125 mls/hr Norepinephrine Bitartrate 4 mg (/ Dextrose/Water) 250 mls @ 7.5 mls/hr IV TITRATE QUINN; Protocol Last Admin: 06/24/19 04:58 Dose: 2 mcg/min, 7.5 mls/hr Sodium Chloride (Saline Flush) 10 ml FLUSH ASDIRECTED PRN PRN Reason: Keep Vein Open Last Admin: 06/24/19 02:15 Dose: 10 ml Sodium Chloride (Saline Flush) 10 ml FLUSH ASDIRECTED PRN PRN Reason: Keep Vein Open Labs: Laboratory Tests 06/23/19 06/23/19 06/23/19 Range/Units 23:42 23:42 23:42 WBC 15.2 H (4.5-12.0) X10-3/uL RBC 3.94 L (4.30-5.75) x10(6)uL Hgb 11.9 L (13.5-17.8) g/dL Hct 34.6 (30.0-51.3) % MCV 87.6 (80-96) fL MCH 30.1 (27.7-33.6) pg MCHC 34.3 (32.2-35.4) g/dL RDW 15.8 H (11.5-15.5) % Plt Count 111 L (125-369) X10(3)uL MPV 11.2 H (7.4-10.4) fL Add Manual Diff Yes Neutrophils % (Manual) 80 (46-82) % Band Neutrophils % 6 (0-6) % Lymphocytes % (Manual) 10 L (13-37) % Monocytes % (Manual) 4 (4-12) % Sodium 136 (135-145) mmol/L Potassium 5.1 D (3.5-5.3) mmol/L Chloride 101 (100-110) mmol/L Carbon Dioxide 26 (21-32) mmol/L BUN 29 H D (7-18) mg/dL Creatinine 2.7 H* (0.70-1.30) mg/dL Est Cr Clr Drug Dosing TNP Estimated GFR (MDRD) 24 L (>60) BUN/Creatinine Ratio 10.7 (9-20) Glucose 117 H (80-116) mg/dL Lactic Acid (0.4-2.2) mmol/L Calcium 7.7 L (8.6-10.2) mg/dL Total Bilirubin 1.1 (0.1-1.3) mg/dL Direct Bilirubin 0.64 H (0.10-0.20) mg/dL AST 164 H* (5-25) IU/L ALT 129 H (12-36) U/L Alkaline Phosphatase 174 H (56-112) IU/L Troponin I (<0.017-0.056) ng/mL NT-Pro-B Natriuret Pep (<=125) pg/mL Total Protein 5.9 L (6.0-8.0) g/dL Albumin 2.0 L (3.2-4.6) g/dL Lipase 126 (73-393) U/L Urine Color (YELLOW) Urine Appearance (CLEAR) Urine pH (5.0-6.5) Ur Specific [place] (1.010-1.025) Urine Protein (NEGATIVE) mg/dL Urine Glucose (UA) (NORMAL) mg/dL Urine Ketones (NEGATIVE) mg/dL Urine Occult Blood (NEGATIVE) Urine Nitrite (NEGATIVE) Urine Bilirubin (NEGATIVE) Urine Urobilinogen (NEGATIVE) mg/dL Ur Leukocyte Esterase (NEGATIVE) Urine RBC (0-5) Urine WBC (0-5) Ur Squamous Epith Cells (NS,R,O) Calcium Oxalate Crystal (NS) Urine Bacteria (NS) Coarse Granular Casts (NS) 06/23/19 06/23/19 06/24/19 Range/Units 23:42 23:55 01:10 WBC (4.5-12.0) X10-3/uL RBC (4.30-5.75) x10(6)uL Hgb (13.5-17.8) g/dL Hct (30.0-51.3) % MCV (80-96) fL MCH (27.7-33.6) pg MCHC (32.2-35.4) g/dL RDW (11.5-15.5) % Plt Count (125-369) X10(3)uL MPV (7.4-10.4) fL Add Manual Diff Neutrophils % (Manual) (46-82) % Band Neutrophils % (0-6) % Lymphocytes % (Manual) (13-37) % Monocytes % (Manual) (4-12) % Sodium (135-145) mmol/L Potassium (3.5-5.3) mmol/L Chloride (100-110) mmol/L Carbon Dioxide (21-32) mmol/L BUN (7-18) mg/dL Creatinine (0.70-1.30) mg/dL Est Cr Clr Drug Dosing Estimated GFR (MDRD) (>60) BUN/Creatinine Ratio (9-20) Glucose (80-116) mg/dL Lactic Acid 3.0 H (0.4-2.2) mmol/L Calcium (8.6-10.2) mg/dL Total Bilirubin (0.1-1.3) mg/dL Direct Bilirubin (0.10-0.20) mg/dL AST (5-25) IU/L ALT (12-36) U/L Alkaline Phosphatase (56-112) IU/L Troponin I (<0.017-0.056) ng/mL NT-Pro-B Natriuret Pep 2591 H* (<=125) pg/mL Total Protein (6.0-8.0) g/dL Albumin (3.2-4.6) g/dL Lipase (73-393) U/L Urine Color [place] (YELLOW) Urine Appearance Slightly cloudy (CLEAR) Urine pH 5.0 (5.0-6.5) Ur Specific [place] 1.030 H (1.010-1.025) Urine Protein Negative (NEGATIVE) mg/dL Urine Glucose (UA) Normal (NORMAL) mg/dL Urine Ketones Negative (NEGATIVE) mg/dL Urine Occult Blood Moderate H (NEGATIVE) Urine Nitrite Negative (NEGATIVE) Urine Bilirubin Small H (NEGATIVE) Urine Urobilinogen 4 H (NEGATIVE) mg/dL Ur Leukocyte Esterase Negative (NEGATIVE) Urine RBC 5-10 H (0-5) Urine WBC 0-5 (0-5) Ur Squamous Epith Cells Occasional (NS,R,O) Calcium Oxalate Crystal Rare H (NS) Urine Bacteria Few H (NS) Coarse Granular Casts Few H (NS) 06/24/19 Range/Units 01:12 WBC (4.5-12.0) X10-3/uL RBC (4.30-5.75) x10(6)uL Hgb (13.5-17.8) g/dL Hct (30.0-51.3) % MCV (80-96) fL MCH (27.7-33.6) pg MCHC (32.2-35.4) g/dL RDW (11.5-15.5) % Plt Count (125-369) X10(3)uL MPV (7.4-10.4) fL Add Manual Diff Neutrophils % (Manual) (46-82) % Band Neutrophils % (0-6) % Lymphocytes % (Manual) (13-37) % Monocytes % (Manual) (4-12) % Sodium (135-145) mmol/L Potassium (3.5-5.3) mmol/L Chloride (100-110) mmol/L Carbon Dioxide (21-32) mmol/L BUN (7-18) mg/dL Creatinine (0.70-1.30) mg/dL Est Cr Clr Drug Dosing Estimated GFR (MDRD) (>60) BUN/Creatinine Ratio (9-20) Glucose (80-116) mg/dL Lactic Acid (0.4-2.2) mmol/L Calcium (8.6-10.2) mg/dL Total Bilirubin (0.1-1.3) mg/dL Direct Bilirubin (0.10-0.20) mg/dL AST (5-25) IU/L ALT (12-36) U/L Alkaline Phosphatase (56-112) IU/L Troponin I < 0.017 L (<0.017-0.056) ng/mL NT-Pro-B Natriuret Pep (<=125) pg/mL Total Protein (6.0-8.0) g/dL Albumin (3.2-4.6) g/dL Lipase (73-393) U/L Urine Color (YELLOW) Urine Appearance (CLEAR) Urine pH (5.0-6.5) Ur Specific [place] (1.010-1.025) Urine Protein (NEGATIVE) mg/dL Urine Glucose (UA) (NORMAL) mg/dL Urine Ketones (NEGATIVE) mg/dL Urine Occult Blood (NEGATIVE) Urine Nitrite (NEGATIVE) Urine Bilirubin (NEGATIVE) Urine Urobilinogen (NEGATIVE) mg/dL Ur Leukocyte Esterase (NEGATIVE) Urine RBC (0-5) Urine WBC (0-5) Ur Squamous Epith Cells (NS,R,O) Calcium Oxalate Crystal (NS) Urine Bacteria (NS) Coarse Granular Casts (NS) Meds: Medications Generic Name Dose Route Start Last Admin Trade Name Freq PRN Reason Stop Dose Admin Sodium Chloride 1,000 mls @ 125 mls/hr 06/23/19 23:35 06/24/19 04:59 Normal Saline IV 999 mls/hr ASDIRECTED QUINN Administration Norepinephrine Bitartrate 4 mg 250 mls @ 7.5 mls/hr 06/24/19 01:15 06/24/19 04:58 / Dextrose/Water IV 2 mcg/min TITRATE QUINN 7.5 mls/hr Administration Protocol 2 MCG/MIN Sodium Chloride 10 ml 06/24/19 02:15 06/24/19 02:15 Saline Flush FLUSH 10 ml ASDIRECTED PRN Administration Keep Vein Open Sodium Chloride 10 ml 06/24/19 03:20 Saline Flush FLUSH ASDIRECTED PRN Keep Vein Open Discontinued Medications Generic Name Dose Route Start Last Admin Trade Name Freq PRN Reason Stop Dose Admin Levofloxacin/Dextrose 750 mg/ 150 mls @ 100 mls/hr 06/24/19 00:12 06/24/19 00 :40 Premix IV 06/24/19 01:41 100 mls/hr ONETIME STA Administration Iopamidol 100 ml 06/23/19 23:51 [id number] (76%) IV 06/23/19 23:52 . DIRECTED ONE Ketorolac Tromethamine 15 mg 06/23/19 23:35 06/23/19 23:40 Toradol IVPUSH 06/23/19 23:36 15 mg ONETIME ONE Administration Departure - Departure Time of Disposition: 05:06 Disposition: DC/Tfer to Acute Hospital 02 Condition: Fair Clinical Impression: Hypotension Qualifiers: Hypotension type: unspecified hypotension type Qualified Code(s): I95.9 - Hypotension, unspecified - Discharge Information - My Orders Last 24 Hours: My Active Orders 06/23/19 23:29 Abdomen Pelvis wo Cont [CT] Stat 06/23/19 23:35 Sodium Chloride 0.9% [Normal Saline] 1,000 ml IV ASDIRECTED 06/24/19 00:10 Chest 1V Frontal [CR] Stat 06/24/19 00:11 Blood Culture x2 Reflex Set [OM.PC] Urgent 06/24/19 00:20 CULTURE BLOOD [BC] Urgent 06/24/19 00:25 CULTURE BLOOD [BC] Urgent 06/24/19 01:08 EKG Documentation Completion [RC] ASDIRECTED EKG 12 Lead [EK] Routine 06/24/19 01:15 Norepinephrine [Levophed] 4 mg Dextrose 5% in Water 246 ml IV TITRATE 06/24/19 02:15 Sodium Chloride 0.9% [Saline Flush] 10 ml FLUSH ASDIRECTED PRN 06/24/19 03:20 Patient Status [ADT] Routine Bedrest Bedside Commode [RC] ASDIRECTED Oxygen Therapy [RC] PRN VTE/DVT Education [RC] Per Unit Routine Vital Signs [RC] Q4H Sodium Chloride 0.9% [Saline Flush] 10 ml FLUSH ASDIRECTED PRN Peripheral IV Insertion Adult [OM.PC] Routine Resuscitation Status Routine 06/24/19 03:22 Cardiac Monitoring [RC] CONTINUOUS 06/24/19 Breakfast Nothing per Oral Now Diet [DIET] - Assessment/Plan Last 24 Hours: My Active Orders 06/23/19 23:29 Abdomen Pelvis wo Cont [CT] Stat 06/23/19 23:35 Sodium Chloride 0.9% [Normal Saline] 1,000 ml IV ASDIRECTED 06/24/19 00:10 Chest 1V Frontal [CR] Stat 06/24/19 00:11 Blood Culture x2 Reflex Set [OM.PC] Urgent 06/24/19 00:20 CULTURE BLOOD [BC] Urgent 06/24/19 00:25 CULTURE BLOOD [BC] Urgent 06/24/19 01:08 EKG Documentation Completion [RC] ASDIRECTED EKG 12 Lead [EK] Routine 06/24/19 01:15 Norepinephrine [Levophed] 4 mg Dextrose 5% in Water 246 ml IV TITRATE 06/24/19 02:15 Sodium Chloride 0.9% [Saline Flush] 10 ml FLUSH ASDIRECTED PRN 06/24/19 03:20 Patient Status [ADT] Routine Bedrest Bedside Commode [RC] ASDIRECTED Oxygen Therapy [RC] PRN VTE/DVT Education [RC] Per Unit Routine Vital Signs [RC] Q4H Sodium Chloride 0.9% [Saline Flush] 10 ml FLUSH ASDIRECTED PRN Peripheral IV Insertion Adult [OM.PC] Routine Resuscitation Status Routine 06/24/19 03:22 Cardiac Monitoring [RC] CONTINUOUS 06/24/19 Breakfast Nothing per Oral Now Diet [DIET]
[2019-06-23] MEDS ORDERED: Iopamidol 755 Mg/ML 100 ML Bottle IV ONE (23:51)
[2019-06-24] MEDS ORDERED: Levofloxacin/Dextrose 5%-Water 750 MG in Premix Bag 1 BAG IV STA (00:12)
[2019-06-24] MEDS ORDERED: Norepinephrine 4 MG in Dextrose 5% in Water 246 ML IV SCH ×2 (01:15)
[2019-06-24] MEDS: Sodium Chloride 0.9% 1,000 ML IV SCH ×2 (01:20→04:59)
[2019-06-24] MEDS ORDERED: Sodium Chloride 0.9% 10 ML Syringe FLUSH PRN ×2 (02:15→03:20)
[2019-06-24 06:06] VITALS: PULSE 101
[2019-06-24 07:40] VITALS: BP 94/50
== END 2019-06-24 05:38 ==
LOC: FB.ED 23:22 → FB.MS 06-24 03:25
PROVIDERS: ADMIT Family Medicine; ATTEND Family Medicine
DX: I95.9 Hypotension, unspecified (principal); R10.11 Right upper quadrant pain; E86.0 Dehydration; N17.9 Acute kidney failure, unspecified; K76.89 Other specified diseases of liver; K57.90 Diverticulosis of intestine, part unspecified, without perforation or abscess without bleeding; I10 Essential (primary) hypertension; I48.91 Unspecified atrial fibrillation; E11.9 Type 2 diabetes mellitus without complications; E66.9 Obesity, unspecified; Z88.8 Allergy status to other drugs, medicaments and biological substances; Z88.1 Allergy status to other antibiotic agents; Z91.040 Latex allergy status; Z95.5 Presence of coronary angioplasty implant and graft; Z95.0 Presence of cardiac pacemaker; Z79.84 Long term (current) use of oral hypoglycemic drugs; Z79.01 Long term (current) use of anticoagulants; Z79.02 Long term (current) use of antithrombotics/antiplatelets; Z79.899 Other long term (current) drug therapy; Z68.33 Body mass index [BMI] 33.0-33.9, adult
CPT/HCPCS: 36415; 71045; 74176; 80048; 80076; 81001; 83605; 83690; 83880; 84484; 85025; 87040; 93005; 96361; 96365; 96366; 96375; 99285; J1885; J1956; J7030; J7060; 87077; 96367; G0378

== ENCOUNTER 2019-07-02 13:17 | Inpatient (IN) | payer MEDICARE ==
[2019-07-03] MEDS ORDERED: Nitroglycerin 0.4 MG Tab.SL SL PRN (15:56)
[2019-07-03] MEDS ORDERED: traZODone 50 MG Tab PO PRN (15:56)
[2019-07-03] MEDS ORDERED: Warfarin 2.5 MG Tab PO SCH (16:00)
[2019-07-03] MEDS: metFORMIN 500 MG Tab PO SCH (17:05)
[2019-07-03] MEDS: Lactobacillus Rhamnosus GG (Probiotic) Cap PO SCH ×2 (17:05→21:02)
[2019-07-03] MEDS: Digoxin 250 MCG Tab PO SCH (17:05)
[2019-07-03] MEDS: metroNIDAZOLE 500 MG Tab PO SCH ×2 (17:06→21:02)
[2019-07-03] MEDS: Furosemide 20 MG Tab PO SCH (17:07)
[2019-07-03] MEDS: Carboxymethylcellulose Sodium 0.5% Ophth Soln 15 ML Bottle EYEBOTH SCH ×3 (17:07→21:06)
[2019-07-03] MEDS: guaiFENesin 600 MG Tab.ER PO SCH (21:02)
[2019-07-03] MEDS: Pantoprazole 40 MG Tab.CR PO SCH (21:04)
[2019-07-03] MEDS: Latanoprost 0.005% Ophth Soln 2.5 ML Bottle EYEBOTH SCH (21:06)
[2019-07-03] MEDS: Gabapentin 300 MG Cap PO SCH (21:11)
[2019-07-03] MEDS: Lisinopril 5 MG Tab PO SCH (21:12)
[2019-07-03] MEDS: Loperamide 2 MG Cap PO SCH (23:01)
[2019-07-04] MEDS: Acetaminophen/oxyCODONE 325-5 MG Tab PO PRN ×4 (00:01→18:57)
--- NOTE | 2019-07-04 08:57 | PCM.HP.2 ---
H&P History of Present Illness - General Date of Service: 07/04/19 Admit Problem/Dx: Admission Diagnosis/Problem Admission Diagnosis/Problem Rehabilitation therapy Source of Information: Patient, Old Records History Limitations: Reports: No Limitations - History of Present Illness Initial Comments - Free Text/Narative: Eligio is a 69-year-old male who came in from [place] for Swing [facility]. He was admitted there for septic shock from multiple hepatic abscesses. The aspirate grew several species of Kerline. He blood also grew Klebsiella and is on IV antibiotics for 4 weeks. While in the hospital she also had atrial fibrillation with rapid ventricular response, and is on long-term anticoagulation. Eligio also had a bile leakage during IR drainage of the abscesses above, and he has a OZ drain in situ for that reason. He complains of pain and general weakness was admitted to swing bed for physical and occupational rehabilitation along with IV antibiotic therapy. He has a history of Major Depression, coronary artery disease, CHF (EF 35%) and a remote history of alcohol abuse in remission abdomen Pain Score (Numeric/FACES): 5 - Related Data Allergies/Adverse Reactions: Allergies Allergy/AdvReac Type Severity Reaction Status Date / Time bupropion HCl Allergy Nausea Verified 06/24/19 00:29 [From Wellbutrin] latex Allergy Rash Verified 06/24/19 00:29 mupirocin [From Bactroban] Allergy Hives Verified 06/24/19 00:29 paroxetine HCl [From Paxil] Allergy Shaking Verified 06/24/19 00:29 Home Medications: Home Meds Latanoprost [Xalatan 0.005% Ophth Soln] 1 drop EYEBOTH BEDTIME 07/17/15 [History ] Nitroglycerin [Nitrostat] 0.4 mg SL ASDIRECTED PRN 07/17/15 [History] traZODone 50 mg PO BEDTIME PRN 07/17/15 [History] Gabapentin [Neurontin] 300 mg PO BID 03/04/17 [History] metFORMIN [Glucophage] 500 mg PO BIDMEALS 03/04/17 [History] Amiodarone [Cordarone] 200 mg PO DAILY 05/19/19 [History] Clopidogrel Bisulfate [Clopidogrel] 75 mg PO DAILY 05/19/19 [History] Omeprazole 20 mg PO BEDTIME 05/19/19 [History] Tamsulosin HCl 0.8 mg PO DAILY 05/19/19 [History] Warfarin Sodium 2.5 - 5 mg PO ASDIRECTED 05/19/19 [History] Lisinopril 5 mg PO BEDTIME 06/24/19 [History] atorvaSTATin [Lipitor] 40 mg PO DAILY 06/24/19 [History] 0.9 % Sodium Chloride [Sodium Chloride] 10 ml FLUSH ASDIRECTED PRN 07/03/19 [ History] Acetaminophen/oxyCODONE [Percocet 325-5 MG] 1 tab PO DAILY PRN 07/03/19 [History ] Dextran 70/Hypromellose [Artificial Tears] 1 - 2 drop EYEBOTH TID PRN 07/03/19 [ History] Digoxin [Digitek] 250 mcg PO DAILY@1600 07/03/19 [History] Furosemide [Lasix] 20 mg PO BID@08,14 07/03/19 [History] Heparin Sodium,Porcine/PF [Heparin 500 Unit/5 ml (100/ml)] 300 units FLUSH ASDIRECTED PRN 07/03/19 [History] Heparin Sodium,Porcine/PF [Heparin 500 Unit/5 ml (100/ml)] 300 units FLUSH BID@ 0930,1400 07/03/19 [History] Lactobacillus Acidophilus [Acidophilus] 1 cap PO TID 07/03/19 [History] Metoprolol Succinate [Toprol XL 50mg] 50 mg PO DAILY 07/03/19 [History] Micafungin [Mycamine] 100 mg IV Q24H 07/03/19 [History] Sertraline [Zoloft] 50 mg PO DAILY 07/03/19 [History] cefTRIAXone [Rocephin] 2 gm IVPUSH Q24H 07/03/19 [History] guaiFENesin [Mucinex] 600 mg PO BID 07/03/19 [History] metroNIDAZOLE [Flagyl] 500 mg PO TID 07/03/19 [History] Past Medical History HEENT History: Reports: Impaired Vision, Other (See Below) Other HEENT History: Wears glasses. Cardiovascular History: Reports: Afib, Pacemaker, Stents, Other (See Below) Other Cardiovascular History: Stents X2. Respiratory History: Reports: Pneumonia, Recurrent Other Respiratory History: pneumonia as a child Gastrointestinal History: Reports: Other (See Below) Other Gastrointestinal History: ABSCESS ON LIVER Genitourinary History: Reports: None Other Genitourinary History: denies urinary hx; states urinary urgency started past few days Musculoskeletal History: Reports: Back Pain, Chronic, Fracture Other Musculoskeletal History: Left arm injury--required elbow and forearm surgery. Has difficulty walking due to low back pain and arthritis. Neurological History: Reports: Brain Injury, Head Trauma, Other (See Below) Other Neuro History: Fell off chair resulting in subdural hematoma, about 10 years ago. Required surgical intervention. Psychiatric History: Reports: None Endocrine/Metabolic History: Reports: Diabetes, Type II Hematologic History: Reports: Anticoagulation Therapy Immunologic History: Reports: None Oncologic (Cancer) History: Reports: None Dermatologic History: Reports: None - Infectious Disease History Infectious Disease History: Reports: Other (See Below) Other Infectious Disease History: Patient doesn't know what childhood diseases he may have had. - Past Surgical History Head Surgeries/Procedures: Reports: Other (See Below) Cardiovascular Surgical History: Reports: Coronary Artery Stent GI Surgical History: Reports: Cholecystectomy Other GI Surgeries/Procedures: tube placed on RUQ draining to OZ drain. Male Surgical History: Reports: None Musculoskeletal Surgical History: Reports: Arthroscopic Knee, Other (See Below) Other Musculoskeletal Surgeries/Procedures:: Left knee scope X2. Social & Family History - Family History Family Medical History: Noncontributory Cardiac: Reports: CAD - Tobacco Use Smoking Status *Q: Current Every Day Smoker Years of Tobacco use: 49 Packs/Tins Daily: 1.5 Tobacco Use Comment: uses nicotine patch while in hospital - Caffeine Use Caffeine Use: Reports: Tea Other Caffeine Use: iced tea - Recreational Drug Use Recreational Drug Use: No - Living Situation & Occupation Living situation: Reports: H&P Review of Systems - Review of Systems: Review Of Systems: ROS reveals no pertinent complaints other than HPI. Exam - Exam Exam: See Below - Vital Signs Vital Signs: Last Vital Signs Temp Pulse 85 07/03/19 17:05 Resp BP 151/73 H 07/03/19 21:12 Pulse Ox Weight: 115.711 kg - Exam General: Alert, Oriented HEENT: PERRLA Neck: Supple Lungs: Clear to Auscultation Cardiovascular: Regular Rate, Irregular Rhythm GI/Abdominal Exam: Soft, Distended, Tender, Other (OZ Drain) (Male) Exam: No Hernia, Normal Inspection Rectal (Males) Exam: Deferred Back Exam: Normal Inspection Extremities: Normal Inspection Neurological: Cranial Nerves Intact Neuro Extensive - Mental Status: Alert, Oriented x3 Neuro Extensive - Motor, Sensory, Reflexes: CN II-XII Intact Psychiatric: Alert, Depressed - Patient Data Lab Results Last 24 hrs: Laboratory Results - last 24 hr 07/03/19 07/04/19 07/04/19 Range/Units 17:22 06:22 07:30 PT 36.6 H* (8.7-11.1) INR 3.82 H (0.89-1.13) POC Glucose 102 88 (80-116) mg/dL 07/04/19 Range/Units 08:20 PT 35.4 H* (8.7-11.1) INR 3.70 H (0.89-1.13) POC Glucose (80-116) mg/dL - Problem List (1) Long-term (current) use of anticoagulants, INR goal 2.0-3.0 SNOMED Code(s): 522632228, 834667471 ICD Code: Z79.01 - SHELTER (CURRENT) USE OF ANTICOAGULANTS Status: Acute Current Visit: Yes (2) Hepatic abscess SNOMED Code(s): 74423760 ICD Code: K75.0 - ABSCESS OF LIVER Status: Acute Current Visit: Yes (3) Afib SNOMED Code(s): 62244628 ICD Code: I48.91 - UNSPECIFIED ATRIAL FIBRILLATION Status: Chronic Current Visit: Yes Qualifiers: Atrial fibrillation type: permanent Qualified Code(s): I48.21 - Permanent atrial fibrillation (4) MDD (major depressive disorder) SNOMED Code(s): 150583513 ICD Code: F32.9 - MAJOR DEPRESSIVE DISORDER, SINGLE EPISODE, UNSPECIFIED Status: Acute Current Visit: Yes Qualifiers: Major depression recurrence: recurrent (5) Ambulatory dysfunction SNOMED Code(s): 033414564 ICD Code: R26.2 - DIFFICULTY IN WALKING, NOT ELSEWHERE CLASSIFIED Status: Chronic Current Visit: Yes (6) Obesity SNOMED Code(s): 437046650, 266982462 ICD Code: E66.9 - OBESITY, UNSPECIFIED Status: Chronic Current Visit: Yes Qualifiers: Obesity type: due to excess calories (7) Antibiotic long-term use SNOMED Code(s): 825224287 ICD Code: Z79.2 - [employer] (CURRENT) USE OF ANTIBIOTICS Status: Acute Current Visit: Yes (8) Smoking addiction SNOMED Code(s): 734542471, 92434588, 457282870 ICD Code: F17.200 - NICOTINE DEPENDENCE, UNSPECIFIED, UNCOMPLICATED Status : Acute Current Visit: No Problem List Initiated/Reviewed/Updated: Yes Orders Last 24hrs: Active Orders 24 hr Category Date Time Status Admission Status [Patient Status] [ADT] Routine ADT 07/03/19 15:00 Active Accu Check [Blood Glucose Check, Bedside] [RC] BIDAC Care 07/03/19 15:48 Active Communication Order [RC] DAILY Care 07/03/19 15:32 Active OT Evaluation and Treatment [CONS] Routine Cons 07/03/19 15:28 Active PT Evaluation and Treatment [CONS] Routine Cons 07/03/19 15:27 Active Consistent Carbohydrate Diet [DIET] Diet 07/03/19 Dinner Active CBC W/O DIFF,HEMOGRAM [HEME] WEEKLY Lab 07/08/19 06:00 Ordered CBC W/O DIFF,HEMOGRAM [HEME] WEEKLY Lab 07/15/19 06:00 Ordered CBC W/O DIFF,HEMOGRAM [HEME] WEEKLY Lab 07/22/19 06:00 Ordered CBC W/O DIFF,HEMOGRAM [HEME] WEEKLY Lab 07/29/19 06:00 Ordered CDIFF TOXIN A+B GROUP [OP] Stat Lab 07/03/19 22:45 Received COMPREHENSIVE METABOLIC PN,CMP [CHEM] WEEKLY Lab 07/08/19 06:00 Ordered COMPREHENSIVE METABOLIC PN,CMP [CHEM] WEEKLY Lab 07/15/19 06:00 Ordered COMPREHENSIVE METABOLIC PN,CMP [CHEM] WEEKLY Lab 07/22/19 06:00 Ordered COMPREHENSIVE METABOLIC PN,CMP [CHEM] WEEKLY Lab 07/29/19 06:00 Ordered CRP [C-REACTIVE PROTEIN] [CHEM] WEEKLY Lab 07/08/19 06:00 Ordered CRP [C-REACTIVE PROTEIN] [CHEM] WEEKLY Lab 07/15/19 06:00 Ordered CRP [C-REACTIVE PROTEIN] [CHEM] WEEKLY Lab 07/22/19 06:00 Ordered CRP [C-REACTIVE PROTEIN] [CHEM] WEEKLY Lab 07/29/19 06:00 Ordered ESR [SEDIMENTATION RATE MANUAL] [HEME] WEEKLY Lab 07/08/19 06:00 Ordered ESR [SEDIMENTATION RATE MANUAL] [HEME] WEEKLY Lab 07/15/19 06:00 Ordered ESR [SEDIMENTATION RATE MANUAL] [HEME] WEEKLY Lab 07/22/19 06:00 Ordered ESR [SEDIMENTATION RATE MANUAL] [HEME] WEEKLY Lab 07/29/19 06:00 Ordered INR,PT,PROTHROMBIN TIME [COAG] DAILY Lab 07/05/19 06:00 Ordered INR,PT,PROTHROMBIN TIME [COAG] DAILY Lab 07/06/19 06:00 Ordered INR,PT,PROTHROMBIN TIME [COAG] DAILY Lab 07/07/19 06:00 Ordered INR,PT,PROTHROMBIN TIME [COAG] DAILY Lab 07/08/19 06:00 Ordered INR,PT,PROTHROMBIN TIME [COAG] DAILY Lab 07/09/19 06:00 Ordered INR,PT,PROTHROMBIN TIME [COAG] DAILY Lab 07/10/19 06:00 Ordered INR,PT,PROTHROMBIN TIME [COAG] DAILY Lab 07/11/19 06:00 Ordered INR,PT,PROTHROMBIN TIME [COAG] DAILY Lab 07/12/19 06:00 Ordered INR,PT,PROTHROMBIN TIME [COAG] DAILY Lab 07/13/19 06:00 Ordered INR,PT,PROTHROMBIN TIME [COAG] DAILY Lab 07/14/19 06:00 Ordered INR,PT,PROTHROMBIN TIME [COAG] DAILY Lab 07/15/19 06:00 Ordered INR,PT,PROTHROMBIN TIME [COAG] DAILY Lab 07/16/19 06:00 Ordered INR,PT,PROTHROMBIN TIME [COAG] DAILY Lab 07/17/19 06:00 Ordered INR,PT,PROTHROMBIN TIME [COAG] DAILY Lab 07/18/19 06:00 Ordered INR,PT,PROTHROMBIN TIME [COAG] DAILY Lab 07/19/19 06:00 Ordered INR,PT,PROTHROMBIN TIME [COAG] DAILY Lab 07/20/19 06:00 Ordered INR,PT,PROTHROMBIN TIME [COAG] DAILY Lab 07/21/19 06:00 Ordered INR,PT,PROTHROMBIN TIME [COAG] DAILY Lab 07/22/19 06:00 Ordered INR,PT,PROTHROMBIN TIME [COAG] DAILY Lab 07/23/19 06:00 Ordered INR,PT,PROTHROMBIN TIME [COAG] DAILY Lab 07/24/19 06:00 Ordered INR,PT,PROTHROMBIN TIME [COAG] DAILY Lab 07/25/19 06:00 Ordered Acetaminophen/oxyCODONE [Percocet 325-5 MG] Med 07/03/19 15:56 Active 1 tab PO DAILY PRN Amiodarone [Cordarone] Med 07/04/19 09:00 Active 200 mg PO DAILY Carboxymethylcellulose Sodium [Refresh Tears 0.5%] Med 07/03/19 16:15 Active 0 ml EYEBOTH TID Clopidogrel [Plavix] Med 07/04/19 09:00 Active 75 mg PO DAILY Digoxin [Lanoxin] Med 07/03/19 16:00 Active 250 mcg PO DAILY@1600 Furosemide [Lasix] Med 07/03/19 17:00 Active 20 mg PO BID@08,14 Gabapentin [Neurontin] Med 07/03/19 21:00 Active 300 mg PO BID Heparin Sodium [Heparin Lock Flush 100 Units/ML] Med 07/03/19 15:56 Active 300 units FLUSH ASDIRECTED PRN Heparin Sodium [Heparin Lock Flush 100 Units/ML] Med 07/04/19 09:30 Active 300 units FLUSH BID@0930,1400 Lactobacillus Rhamnosus GG [Culturelle] Med 07/03/19 16:15 Active 1 cap PO TID Latanoprost [Xalatan 0.005% Ophth Soln] Med 07/03/19 21:00 Active 0 ml EYEBOTH BEDTIME Lisinopril [Prinivil] Med 07/03/19 21:00 Active 5 mg PO BEDTIME Loperamide [Imodium] Med 07/03/19 22:34 Active 2 mg PO QID Metoprolol Succinate [Toprol XL] Med 07/04/19 09:00 Active 50 mg PO DAILY Micafungin [Mycamine] 100 mg Med 07/04/19 13:00 Active Sodium Chloride 0.9% [Normal Saline] 100 ml IV Q24H Nitroglycerin [Nitrostat] Med 07/03/19 15:56 Active 0.4 mg SL ASDIRECTED PRN Pantoprazole [ProTONIX] Med 07/03/19 21:00 Active 40 mg PO BEDTIME Sertraline [Zoloft] Med 07/04/19 09:00 Active 50 mg PO DAILY Sodium Chloride 0.9% [Saline Flush] Med 07/04/19 10:00 Active 10 ml FLUSH 1000 PRN Sodium Chloride 0.9% [Saline Flush] Med 07/03/19 16:15 Active 10 ml FLUSH ASDIRECTED PRN Tamsulosin [Flomax] Med 07/04/19 09:00 Active 0.8 mg PO DAILY Warfarin Sliding Scale [Coumadin Sliding Scale] Med 07/04/19 09:00 Pending 1 each PO DAILY atorvaSTATin [Lipitor] Med 07/04/19 09:00 Active 40 mg PO DAILY cefTRIAXone [Rocephin] Med 07/04/19 09:00 Active 2 gm IVPUSH Q24H guaiFENesin [Mucinex] Med 07/03/19 21:00 Active 600 mg PO BID metFORMIN [Glucophage] Med 07/03/19 18:00 Active 500 mg PO BIDMEALS metroNIDAZOLE [Flagyl] Med 07/03/19 16:00 Active 500 mg PO TID traZODone Med 07/03/19 15:56 Active 50 mg PO BEDTIME PRN Isolation [COMM] Stat Ot 07/03/19 23:05 Ordered Code Status [Resuscitation Status] Routine Resus Stat 07/03/19 15:26 Ordered Medication Orders Amiodarone HCl (Cordarone) 200 mg PO DAILY [facility] Artificial Tears (Refresh Tears 0.5%) 0 ml EYEBOTH TID [facility] Last Admin: 07/03/19 21:06 Dose: Not Given Admin: 07/03/19 17:07 Dose: 2 drop Atorvastatin Calcium (Lipitor) 40 mg PO DAILY [facility] Ceftriaxone Sodium (Rocephin) 2 gm IVPUSH Q24H [facility] Clopidogrel Bisulfate (Plavix) 75 mg PO DAILY [facility] Digoxin (Lanoxin) 250 mcg PO DAILY@1600 [facility] Last Admin: 07/03/19 17:05 Dose: 250 mcg Furosemide (Lasix) 20 mg PO BID@08,14 [facility] Last Admin: 07/03/19 17:07 Dose: 20 mg Gabapentin (Neurontin) 300 mg PO BID [facility] Last Admin: 07/03/19 21:11 Dose: 300 mg Guaifenesin (Mucinex) 600 mg PO BID [facility] Last Admin: 07/03/19 21:02 Dose: 600 mg Heparin Sodium (Porcine) (Heparin Lock Flush 100 Units/Ml) 300 units FLUSH ASDIRECTED PRN PRN Reason: line patency Heparin Sodium (Porcine) (Heparin Lock Flush 100 Units/Ml) 300 units FLUSH BID@ 0930,1400 [facility] Micafungin Sodium 100 mg/ (Sodium Chloride) 100 mls @ 100 mls/hr IV Q24H [facility] Lactobacillus Rhamnosus (Culturelle) 1 cap PO TID [facility] Last Admin: 07/03/19 21:02 Dose: 1 cap Admin: 07/03/19 17:05 Dose: 1 cap Latanoprost (Xalatan 0.005% Ophth Soln) 0 ml EYEBOTH BEDTIME [facility] Last Admin: 07/03/19 21:06 Dose: 1 drop Lisinopril (Prinivil) 5 mg PO BEDTIME [facility] Last Admin: 07/03/19 21:12 Dose: 5 mg Loperamide HCl (Imodium) 2 mg PO QID [facility] Last Admin: 07/03/19 23:01 Dose: 2 mg Metformin HCl (Glucophage) 500 mg PO BIDMEALS [facility] Last Admin: 07/03/19 17:05 Dose: 500 mg Metoprolol Succinate (Toprol Xl) 50 mg PO DAILY [facility] Metronidazole (Flagyl) 500 mg PO TID [facility] Last Admin: 07/03/19 21:02 Dose: 500 mg Admin: 07/03/19 17:06 Dose: 500 mg Nitroglycerin (Nitrostat) 0.4 mg SL ASDIRECTED PRN PRN Reason: Chest Pain Oxycodone/Acetaminophen (Percocet 325-5 Mg) 1 tab PO DAILY PRN PRN Reason: severe pain Last Admin: 07/04/19 06:43 Dose: 1 tab Admin: 07/04/19 00:01 Dose: 1 tab Pantoprazole Sodium (Protonix) 40 mg PO BEDTIME [facility] Last Admin: 07/03/19 21:04 Dose: 40 mg Sertraline HCl (Zoloft) 50 mg PO DAILY [facility] Sodium Chloride (Saline Flush) 10 ml FLUSH ASDIRECTED PRN PRN Reason: FLUSH Sodium Chloride (Saline Flush) 10 ml FLUSH 1000 PRN PRN Reason: Other Tamsulosin HCl (Flomax) 0.8 mg PO DAILY [facility] Trazodone HCl (Trazodone) 50 mg PO BEDTIME PRN PRN Reason: Insomnia Warfarin Sodium (Coumadin Sliding Scale) 1 each PO DAILY [facility] Assessment/Plan Comment:: Admit to [facility],with IV antibiotics and IV antifungals as recommended by ID. Check electrolytes to adjust Lasix as needed. PT/OT on board. - Mortality Measure Prognosis:: Good
[2019-07-04] MEDS ORDERED: Carboxymethylcellulose Sodium 0.5% Ophth Soln 15 ML Bottle EYEBOTH PRN (09:00)
[2019-07-04] MEDS ORDERED: Warfarin Sliding Scale PO SCH (09:00)
[2019-07-04] MEDS: Furosemide 20 MG Tab PO SCH ×2 (09:20→14:46)
[2019-07-04] MEDS: metroNIDAZOLE 500 MG Tab PO SCH ×3 (09:20→21:26)
[2019-07-04] MEDS: Sertraline 50 MG Tab PO SCH (09:21)
[2019-07-04] MEDS: Amiodarone 200 MG Tab PO SCH (09:21)
[2019-07-04] MEDS: Clopidogrel 75 MG Tab PO SCH (09:21)
[2019-07-04] MEDS: Lactobacillus Rhamnosus GG (Probiotic) Cap PO SCH ×3 (09:21→21:25)
[2019-07-04] MEDS: atorvaSTATin 40 MG Tab PO SCH (09:21)
[2019-07-04] MEDS: guaiFENesin 600 MG Tab.ER PO SCH ×2 (09:21→21:26)
[2019-07-04] MEDS: Tamsulosin 0.4 MG Cap.ER PO SCH (09:21)
[2019-07-04] MEDS: cefTRIAXone 2 GM Vial IVPUSH SCH (09:22)
[2019-07-04] MEDS: metFORMIN 500 MG Tab PO SCH ×2 (09:22→18:57)
[2019-07-04] MEDS: Gabapentin 300 MG Cap PO SCH ×2 (09:27→21:27)
[2019-07-04] MEDS: Nicotine 21 MG/24 Hr Patch TRDERM SCH (09:28)
[2019-07-04] MEDS: Loperamide 2 MG Cap PO SCH ×4 (09:28→21:26)
[2019-07-04] MEDS: Metoprolol Succinate 50 MG Tab.ER PO SCH (09:28)
[2019-07-04] MEDS: Sodium Chloride 0.9% 10 ML Syringe FLUSH SCH (09:52)
[2019-07-04] MEDS: Sodium Chloride 0.9% 10 ML Syringe FLUSH PRN ×2 (09:52→13:23)
[2019-07-04] MEDS: Micafungin 100 MG in Sodium Chloride 0.9% 100 ML IV SCH (13:17)
[2019-07-04] MEDS: Digoxin 250 MCG Tab PO SCH (17:08)
[2019-07-04] MEDS: Pantoprazole 40 MG Tab.CR PO SCH (21:28)
[2019-07-04] MEDS: Lisinopril 5 MG Tab PO SCH (21:29)
[2019-07-04] MEDS: Latanoprost 0.005% Ophth Soln 2.5 ML Bottle EYEBOTH SCH (21:29)
[2019-07-05] MEDS: Sodium Chloride 0.9% 10 ML Syringe FLUSH PRN ×4 (06:52→13:56)
[2019-07-05] MEDS: Acetaminophen/oxyCODONE 325-5 MG Tab PO PRN ×2 (08:01→17:40)
[2019-07-05] MEDS: Famotidine 20 MG Tab PO PRN (09:09)
[2019-07-05] MEDS: atorvaSTATin 40 MG Tab PO SCH (09:19)
[2019-07-05] MEDS: Furosemide 20 MG Tab PO SCH ×2 (09:19→13:05)
[2019-07-05] MEDS: metFORMIN 500 MG Tab PO SCH ×2 (09:19→17:41)
[2019-07-05] MEDS: Clopidogrel 75 MG Tab PO SCH (09:19)
[2019-07-05] MEDS: Metoprolol Succinate 50 MG Tab.ER PO SCH (09:19)
[2019-07-05] MEDS: Sodium Chloride 0.9% 10 ML Syringe FLUSH SCH (09:19)
[2019-07-05] MEDS: Sertraline 50 MG Tab PO SCH (09:20)
[2019-07-05] MEDS: Tamsulosin 0.4 MG Cap.ER PO SCH (09:20)
[2019-07-05] MEDS: guaiFENesin 600 MG Tab.ER PO SCH ×2 (09:20→20:12)
[2019-07-05] MEDS: Amiodarone 200 MG Tab PO SCH (09:20)
[2019-07-05] MEDS: cefTRIAXone 2 GM Vial IVPUSH SCH (09:21)
[2019-07-05] MEDS: metroNIDAZOLE 500 MG Tab PO SCH ×3 (09:21→20:12)
[2019-07-05] MEDS: Loperamide 2 MG Cap PO SCH ×4 (09:21→20:12)
[2019-07-05] MEDS: Lactobacillus Rhamnosus GG (Probiotic) Cap PO SCH ×3 (09:21→20:11)
[2019-07-05] MEDS: Nicotine 21 MG/24 Hr Patch TRDERM SCH (09:22)
[2019-07-05] MEDS: Gabapentin 300 MG Cap PO SCH ×2 (09:26→20:14)
[2019-07-05] MEDS: Micafungin 100 MG in Sodium Chloride 0.9% 100 ML IV SCH (12:51)
[2019-07-05] MEDS: Digoxin 250 MCG Tab PO SCH (16:08)
[2019-07-05] MEDS: Lisinopril 5 MG Tab PO SCH (20:14)
[2019-07-05] MEDS: Latanoprost 0.005% Ophth Soln 2.5 ML Bottle EYEBOTH SCH (20:15)
[2019-07-05] MEDS: Pantoprazole 40 MG Tab.CR PO SCH (20:15)
[2019-07-06] MEDS: Sodium Chloride 0.9% 10 ML Syringe FLUSH PRN ×5 (06:24→17:11)
[2019-07-06] MEDS: Famotidine 20 MG Tab PO PRN (08:18)
[2019-07-06] MEDS: guaiFENesin 600 MG Tab.ER PO SCH ×2 (08:45→20:20)
[2019-07-06] MEDS: Clopidogrel 75 MG Tab PO SCH (08:45)
[2019-07-06] MEDS: Metoprolol Succinate 50 MG Tab.ER PO SCH (08:46)
[2019-07-06] MEDS: Amiodarone 200 MG Tab PO SCH (08:46)
[2019-07-06] MEDS: atorvaSTATin 40 MG Tab PO SCH (08:46)
[2019-07-06] MEDS: Sertraline 50 MG Tab PO SCH (08:47)
[2019-07-06] MEDS: Lactobacillus Rhamnosus GG (Probiotic) Cap PO SCH ×3 (08:47→20:19)
[2019-07-06] MEDS: Furosemide 20 MG Tab PO SCH ×2 (08:47→14:34)
[2019-07-06] MEDS: Tamsulosin 0.4 MG Cap.ER PO SCH (08:47)
[2019-07-06] MEDS: metroNIDAZOLE 500 MG Tab PO SCH ×3 (08:47→20:20)
[2019-07-06] MEDS: metFORMIN 500 MG Tab PO SCH (08:47)
[2019-07-06] MEDS: Loperamide 2 MG Cap PO SCH ×4 (08:48→20:20)
[2019-07-06] MEDS: cefTRIAXone 2 GM Vial IVPUSH SCH (08:48)
[2019-07-06] MEDS: Sodium Chloride 0.9% 10 ML Syringe FLUSH SCH (08:49)
[2019-07-06] MEDS: Nicotine 21 MG/24 Hr Patch TRDERM SCH (09:41)
[2019-07-06] MEDS: Acetaminophen/oxyCODONE 325-5 MG Tab PO PRN (09:41)
[2019-07-06] MEDS: Gabapentin 300 MG Cap PO SCH ×2 (09:45→20:20)
[2019-07-06] MEDS ORDERED: Furosemide 40 MG/4 ML VIAL IVPUSH ONE (09:54)
[2019-07-06] MEDS: Ondansetron 4 MG Tab.DIS PO PRN (10:49)
--- NOTE | 2019-07-06 12:08 | PCM.PN ---
- General Info Date of Service: 07/06/19 Admission Dx/Problem (Free Text): Patient states his abdominal pain and nausea are worse but just got pain medication and nausea medication. He did not get pain medication during the night. He has not been sleeping well, usually takes Trazodone 25 mg at home as the 50 mg that he is prescribed is "too much". Also having more drainage out his OZ drain, had bile leak after IR drainage of his multiple liver abscesses done in [place]. It is clear, no fevers, no chills, no redness or warmth to RUQ abdomen. His appetite has been poor since he was in [place], states it was good initially then went down. He eats because he knows he needs to. States that he feels weak in regards to walking more but that it is better than it was. He is ambulating with walker to chair. - Patient Data Vitals - Most Recent: Last Vital Signs Temp 36.4 C 07/05/19 08:00 Pulse 95 07/06/19 08:46 Resp 16 07/05/19 08:00 BP 153/77 H 07/06/19 08:46 Pulse Ox 94 L 07/05/19 08:00 Weight - Most Recent: 115.711 kg Lab Results Last 24 Hours: Laboratory Results - last 24 hr 07/05/19 07/06/19 07/06/19 Range/Units 16:13 06:04 06:30 PT 33.1 H (8.7-11.1) INR 3.45 H (0.89-1.13) POC Glucose 133 H 96 (80-116) mg/dL Med Orders - Current: Current Medications Amiodarone HCl (Cordarone) 200 mg PO DAILY [facility] Last Admin: 07/06/19 08:46 Dose: 200 mg Artificial Tears (Refresh Tears 0.5%) 0 ml EYEBOTH TID PRN PRN Reason: DRY EYES Atorvastatin Calcium (Lipitor) 40 mg PO DAILY [facility] Last Admin: 07/06/19 08:46 Dose: 40 mg Ceftriaxone Sodium (Rocephin) 2 gm IVPUSH Q24H [facility] Stop: 07/23/19 09:01 Last Admin: 07/06/19 08:48 Dose: 2 gm Clopidogrel Bisulfate (Plavix) 75 mg PO DAILY [facility] Last Admin: 10/12/19 08:45 Dose: 75 mg Digoxin (Lanoxin) 250 mcg PO DAILY@1600 [facility] Last Admin: 07/05/19 16:08 Dose: 250 mcg Famotidine (Pepcid) 20 mg PO BID PRN PRN Reason: Dyspepsia Last Admin: 07/06/19 08:18 Dose: 20 mg Furosemide (Lasix) 20 mg PO BID@08,14 [facility] Last Admin: 07/06/19 08:47 Dose: 20 mg Gabapentin (Neurontin) 300 mg PO BID [facility] Last Admin: 07/06/19 09:45 Dose: 300 mg Guaifenesin (Mucinex) 600 mg PO BID [facility] Last Admin: 07/06/19 08:45 Dose: 600 mg Heparin Sodium (Porcine) (Heparin Lock Flush 100 Units/Ml) 300 units FLUSH ASDIRECTED PRN PRN Reason: line patency Last Admin: 07/06/19 06:23 Dose: 300 units Heparin Sodium (Porcine) (Heparin Lock Flush 100 Units/Ml) 300 units FLUSH BID@ 0930,1400 [facility] Last Admin: 07/06/19 08:48 Dose: 300 units Micafungin Sodium 100 mg/ (Sodium Chloride) 100 mls @ 100 mls/hr IV Q24H [facility] Stop: 07/23/19 13:59 Last Admin: 07/05/19 12:51 Dose: 100 mls/hr Lactobacillus Rhamnosus (Culturelle) 1 cap PO TID [facility] Last Admin: 07/06/19 08:47 Dose: 1 cap Latanoprost (Xalatan 0.005% Ophth Soln) 0 ml EYEBOTH BEDTIME [facility] Last Admin: 07/05/19 20:15 Dose: 1 drop Lisinopril (Prinivil) 5 mg PO BEDTIME [facility] Last Admin: 07/05/19 20:14 Dose: 5 mg Loperamide HCl (Imodium) 2 mg PO QID [facility] Last Admin: 07/06/19 08:48 Dose: 2 mg Metformin HCl (Glucophage) 500 mg PO BIDMEALS [facility] Last Admin: 07/06/19 08:47 Dose: 500 mg Metoprolol Succinate (Toprol Xl) 50 mg PO DAILY [facility] Last Admin: 07/06/19 08:46 Dose: 50 mg Metronidazole (Flagyl) 500 mg PO TID [facility] Stop: 07/23/19 09:01 Last Admin: 07/06/19 08:47 Dose: 500 mg Nicotine (Habitrol) 21 mg TRDERM Q24H [facility] Last Admin: 07/06/19 09:41 Dose: 21 mg Nitroglycerin (Nitrostat) 0.4 mg SL ASDIRECTED PRN PRN Reason: Chest Pain Ondansetron HCl (Zofran Odt) 4 mg PO Q4H PRN PRN Reason: Nausea/Vomiting Oxycodone/Acetaminophen (Percocet 325-5 Mg) 1 tab PO Q6H PRN PRN Reason: PAIN Last Admin: 07/06/19 09:41 Dose: 1 tab Sertraline HCl (Zoloft) 50 mg PO DAILY [facility] Last Admin: 07/06/19 08:47 Dose: 50 mg Sodium Chloride (Saline Flush) 10 ml FLUSH ASDIRECTED PRN PRN Reason: FLUSH Last Admin: 07/06/19 10:54 Dose: 10 ml Sodium Chloride (Saline Flush) 10 ml FLUSH 1000 PRN PRN Reason: Other Last Admin: 07/06/19 06:24 Dose: 10 ml Sodium Chloride (Saline Flush) 10 ml FLUSH DAILY [facility] Last Admin: 07/06/19 08:49 Dose: 10 ml Tamsulosin HCl (Flomax) 0.8 mg PO DAILY [facility] Last Admin: 07/06/19 08:47 Dose: 0.8 mg Warfarin Sodium (Coumadin Sliding Scale) 1 each PO DAILY [facility] Discontinued Medications Artificial Tears (Refresh Tears 0.5%) 0 ml EYEBOTH TID [facility] Last Admin: 07/03/19 21:06 Dose: Not Given Furosemide (Lasix) 40 mg IVPUSH NOW ONE Stop: 07/06/19 09:55 Last Admin: 07/06/19 10:49 Dose: 40 mg Oxycodone/Acetaminophen (Percocet 325-5 Mg) 1 tab PO DAILY PRN PRN Reason: severe pain Last Admin: 07/04/19 06:43 Dose: 1 tab Pantoprazole Sodium (Protonix) 40 mg PO BEDTIME [facility] Last Admin: 07/05/19 20:15 Dose: 40 mg Trazodone HCl (Trazodone) 50 mg PO BEDTIME PRN PRN Reason: Insomnia - Exam General: Alert, Oriented, Cooperative, No Acute Distress Lungs: Clear to Auscultation, Normal Respiratory Effort Cardiovascular: Regular Rate, Regular Rhythm GI/Abdominal Exam: Normal Bowel Sounds, Soft, Tender (RUQ), Other (OZ drain, clear bile present, no induration or erythema around site, no erythema, or warmth of surrounding RUQ) Extremities: Pedal Edema (3+ BLE to knees.) Skin: Other (stasis dermatitis BLE) - Problem List & Annotations (1) Antibiotic long-term use SNOMED Code(s): 941468073 Code(s): Z79.2 - ALF (CURRENT) USE OF ANTIBIOTICS Status: Acute Current Visit: Yes (2) Hepatic abscess SNOMED Code(s): 08059466 Code(s): K75.0 - ABSCESS OF LIVER Status: Acute Current Visit: Yes (3) Long-term (current) use of anticoagulants, INR goal 2.0-3.0 SNOMED Code(s): 910919341, 267297675 Code(s): 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 Status: Acute Current Visit: Yes (4) MDD (major depressive disorder) SNOMED Code(s): 682170394 Code(s): F32.9 - MAJOR DEPRESSIVE DISORDER, SINGLE EPISODE, UNSPECIFIED Status: Acute Current Visit: Yes Qualifiers: Major depression recurrence: recurrent (5) Afib SNOMED Code(s): 94900949 Code(s): I48.91 - UNSPECIFIED ATRIAL FIBRILLATION Status: Chronic Current Visit: Yes Qualifiers: Atrial fibrillation type: permanent Qualified Code(s): I48.21 - Permanent atrial fibrillation (6) Obesity SNOMED Code(s): 085497535, 458429685 Code(s): E66.9 - OBESITY, UNSPECIFIED Status: Chronic Current Visit: Yes Qualifiers: Obesity type: due to excess calories (7) Peripheral edema SNOMED Code(s): 819382427 Code(s): R60.9 - EDEMA, UNSPECIFIED Status: Chronic Current Visit: Yes (8) Stasis dermatitis of both legs SNOMED Code(s): 82344093 Code(s): I87.2 - VENOUS INSUFFICIENCY (CHRONIC) (PERIPHERAL) Status: Chronic Current Visit: Yes (9) Venous insufficiency of both lower extremities SNOMED Code(s): 837508019 Code(s): I87.2 - VENOUS INSUFFICIENCY (CHRONIC) (PERIPHERAL) Status: Chronic Current Visit: Yes - Problem List Review Problem List Initiated/Reviewed/Updated: Yes - My Orders Last 24 Hours: My Active Orders 07/06/19 09:55 Ondansetron [Zofran ODT] 4 mg PO Q4H PRN 07/06/19 11:59 HALLEY Bandage [Elastic Wrap] [OM.PC] Routine 07/06/19 17:30 Pantoprazole [ProTONIX] 40 mg PO BIDAC 07/06/19 21:00 traZODone 25 mg PO BEDTIME - Plan Plan:: Lasix 40 mg IV x 1, HALLEY wraps to BLE on during the day and off at night. Change home Trazodone to 25 mg at bedtime scheduled to help him get sleep. Will continue to watch output from drain, if spikes fevers or pain is worsening then will discuss with Surgery. Oxycodone/APAP is scheduled every 6 hours as needed, he has taken 2 doses each day since admission per [facility], remind patient he needs to ask for pain medication if it is worsening. Advised patient that walking will help him gain strength and help push fluid out of his legs. He has chronic venous insufficiency as evidence by the stasis dermatitis on bilateral lower legs. Also discussed that the more he lays in bed, he will get weaker as he is not using his muscles. Hopefully getting him to sleep better, and get pain controlled will help get him up and moving more.
[2019-07-06] MEDS ORDERED: Sodium Chloride 0.9% 500 ML IV ONE (14:16)
[2019-07-06] MEDS: Micafungin 100 MG in Sodium Chloride 0.9% 100 ML IV SCH (14:25)
[2019-07-06] MEDS ORDERED: Iopamidol 755 Mg/ML 100 ML Bottle IV ONE (16:10)
[2019-07-06] MEDS: Digoxin 250 MCG Tab PO SCH (17:11)
[2019-07-06] MEDS: Pantoprazole 40 MG Tab.CR PO SCH (17:16)
[2019-07-06] MEDS: Lisinopril 5 MG Tab PO SCH (20:20)
[2019-07-06] MEDS: traZODone 50 MG Tab PO SCH (20:21)
[2019-07-06] MEDS: Latanoprost 0.005% Ophth Soln 2.5 ML Bottle EYEBOTH SCH (20:22)
[2019-07-07] MEDS: Acetaminophen/oxyCODONE 325-5 MG Tab PO PRN ×3 (03:54→19:15)
[2019-07-07] MEDS: Sodium Chloride 0.9% 10 ML Syringe FLUSH PRN ×2 (06:14→08:50)
[2019-07-07] MEDS: Pantoprazole 40 MG Tab.CR PO SCH ×2 (06:30→17:17)
[2019-07-07] MEDS: Gabapentin 300 MG Cap PO SCH ×2 (08:45→20:15)
[2019-07-07] MEDS: guaiFENesin 600 MG Tab.ER PO SCH ×2 (08:46→20:12)
[2019-07-07] MEDS: metroNIDAZOLE 500 MG Tab PO SCH ×3 (08:46→20:11)
[2019-07-07] MEDS: Furosemide 20 MG Tab PO SCH ×2 (08:46→13:02)
[2019-07-07] MEDS: Sertraline 50 MG Tab PO SCH (08:47)
[2019-07-07] MEDS: Tamsulosin 0.4 MG Cap.ER PO SCH (08:47)
[2019-07-07] MEDS: Loperamide 2 MG Cap PO SCH ×4 (08:47→20:12)
[2019-07-07] MEDS: atorvaSTATin 40 MG Tab PO SCH (08:47)
[2019-07-07] MEDS: Clopidogrel 75 MG Tab PO SCH (08:47)
[2019-07-07] MEDS: Lactobacillus Rhamnosus GG (Probiotic) Cap PO SCH ×3 (08:48→20:11)
[2019-07-07] MEDS: Amiodarone 200 MG Tab PO SCH (08:48)
[2019-07-07] MEDS: Nicotine 21 MG/24 Hr Patch TRDERM SCH (08:48)
[2019-07-07] MEDS: cefTRIAXone 2 GM Vial IVPUSH SCH (08:49)
[2019-07-07] MEDS: Metoprolol Succinate 50 MG Tab.ER PO SCH (08:49)
[2019-07-07] MEDS: Sodium Chloride 0.9% 10 ML Syringe FLUSH SCH (08:50)
--- NOTE | 2019-07-07 11:05 | PCM.PN ---
- General Info Date of Service: 07/07/19 Admission Dx/Problem (Free Text): Patient dropped his blood pressure yesterday while working with PT, got lightheaded and dizzy. BP dropped into the 80s, responded to IV bolus. CBC and chemistry and CT abdomen/pelvis were done. Size of abscesses are reduce, drain in good position, consolidation in RLL. On Rocephin, Metronidazole and Micafungin. He is feeling better in regards to his stomach. He is complaining of left ankle pain, no known injury, states he's had bursitis in the past but other ankle. Has stasis dermatitis from chronic venous insufficiency, reports edema is worse than usually is at home. He does not wear compression stockings except when home health came in and helped get them on. No redness or bruising. - Patient Data Vitals - Most Recent: Last Vital Signs Temp 36.2 C 07/07/19 08:00 Pulse 80 07/07/19 08:49 Resp 14 07/07/19 08:00 BP 123/71 07/07/19 08:49 Pulse Ox 96 07/07/19 08:00 Weight - Most Recent: 115.711 kg I&O - Last 24 Hours: Intake & Output 07/06/19 07/07/19 07/07/19 22:59 06:59 14:59 Intake Total 500 Output Total 755 350 Balance -255 -350 Lab Results Last 24 Hours: Laboratory Results - last 24 hr 07/06/19 07/06/19 07/07/19 Range/Units 15:40 15:40 06:15 WBC 13.0 H (4.5-12.0) X10-3/uL RBC 3.59 L (4.30-5.75) x10(6)uL Hgb 10.2 L (13.5-17.8) g/dL Hct 31.4 (30.0-51.3) % MCV 87.4 (80-96) fL MCH 28.5 (27.7-33.6) pg MCHC 32.6 (32.2-35.4) g/dL RDW 16.4 H (11.5-15.5) % Plt Count 227 (125-369) X10(3)uL MPV 10.5 H (7.4-10.4) fL Neut % (Auto) 78.9 (46-82) % Lymph % (Auto) 11.9 L (13-37) % [place] % (Auto) 8.8 (4-12) % Eos % (Auto) 0 L (1.0-5.0) % Baso % (Auto) 0 (0-2) % Neut # (Auto) 10.4 H (1.6-8.3) # Lymph # (Auto) 1.5 (0.6-5.0) # [place] # (Auto) 1.1 (0.0-1.3) # Eos # (Auto) 0.0 (0.0-0.8) # Baso # (Auto) 0.0 (0.0-0.2) # PT 30.3 H (8.7-11.1) INR 3.16 H (0.89-1.13) Sodium 139 (135-145) mmol/L Potassium 3.5 D (3.5-5.3) mmol/L Chloride 102 (100-110) mmol/L Carbon Dioxide 34 H (21-32) mmol/L BUN 8 D (7-18) mg/dL Creatinine 1.0 (0.70-1.30) mg/dL Est Cr Clr Drug Dosing 76.52 mL/min Estimated GFR (MDRD) > 60 (>60) BUN/Creatinine Ratio 8.0 L (9-20) Glucose 131 H (80-116) mg/dL POC Glucose (80-116) mg/dL Calcium 7.8 L (8.6-10.2) mg/dL 07/07/19 Range/Units 06:24 WBC (4.5-12.0) X10-3/uL RBC (4.30-5.75) x10(6)uL Hgb (13.5-17.8) g/dL Hct (30.0-51.3) % MCV (80-96) fL MCH (27.7-33.6) pg MCHC (32.2-35.4) g/dL RDW (11.5-15.5) % Plt Count (125-369) X10(3)uL MPV (7.4-10.4) fL Neut % (Auto) (46-82) % Lymph % (Auto) (13-37) % [place] % (Auto) (4-12) % Eos % (Auto) (1.0-5.0) % Baso % (Auto) (0-2) % Neut # (Auto) (1.6-8.3) # Lymph # (Auto) (0.6-5.0) # [place] # (Auto) (0.0-1.3) # Eos # (Auto) (0.0-0.8) # Baso # (Auto) (0.0-0.2) # PT (8.7-11.1) INR (0.89-1.13) Sodium (135-145) mmol/L Potassium (3.5-5.3) mmol/L Chloride (100-110) mmol/L Carbon Dioxide (21-32) mmol/L BUN (7-18) mg/dL Creatinine (0.70-1.30) mg/dL Est Cr Clr Drug Dosing mL/min Estimated GFR (MDRD) (>60) BUN/Creatinine Ratio (9-20) Glucose (80-116) mg/dL POC Glucose 79 L (80-116) mg/dL Calcium (8.6-10.2) mg/dL Med Orders - Current: Current Medications Amiodarone HCl (Cordarone) 200 mg PO DAILY [facility] Last Admin: 07/07/19 08:48 Dose: 200 mg Artificial Tears (Refresh Tears 0.5%) 0 ml EYEBOTH TID PRN PRN Reason: DRY EYES Atorvastatin Calcium (Lipitor) 40 mg PO DAILY [facility] Last Admin: 07/07/19 08:47 Dose: 40 mg Ceftriaxone Sodium (Rocephin) 2 gm IVPUSH Q24H [facility] Stop: 07/23/19 09:01 Last Admin: 07/07/19 08:49 Dose: 2 gm Clopidogrel Bisulfate (Plavix) 75 mg PO DAILY [facility] Last Admin: 07/07/19 08:47 Dose: 75 mg Digoxin (Lanoxin) 250 mcg PO DAILY@1600 [facility] Last Admin: 07/06/19 17:11 Dose: 250 mcg Famotidine (Pepcid) 20 mg PO BID PRN PRN Reason: Dyspepsia Last Admin: 07/06/19 08:18 Dose: 20 mg Furosemide (Lasix) 20 mg PO BID@08,14 [facility] Last Admin: 07/07/19 08:46 Dose: 20 mg Gabapentin (Neurontin) 300 mg PO BID [facility] Last Admin: 07/07/19 08:45 Dose: 300 mg Guaifenesin (Mucinex) 600 mg PO BID [facility] Last Admin: 07/07/19 08:46 Dose: 600 mg Heparin Sodium (Porcine) (Heparin Lock Flush 100 Units/Ml) 300 units FLUSH ASDIRECTED PRN PRN Reason: line patency Last Admin: 07/07/19 06:13 Dose: 300 units Heparin Sodium (Porcine) (Heparin Lock Flush 100 Units/Ml) 300 units FLUSH BID@ 0930,1400 [facility] Last Admin: 07/07/19 08:49 Dose: 300 units Micafungin Sodium 100 mg/ (Sodium Chloride) 100 mls @ 100 mls/hr IV Q24H [facility] Stop: 07/23/19 13:59 Last Admin: 07/06/19 14:25 Dose: 100 mls/hr Lactobacillus Rhamnosus (Culturelle) 1 cap PO TID [facility] Last Admin: 07/07/19 08:48 Dose: 1 cap Latanoprost (Xalatan 0.005% Ophth Soln) 0 ml EYEBOTH BEDTIME [facility] Last Admin: 07/06/19 20:22 Dose: 1 drop Lisinopril (Prinivil) 5 mg PO BEDTIME [facility] Last Admin: 07/06/19 20:20 Dose: 5 mg Loperamide HCl (Imodium) 2 mg PO QID [facility] Last Admin: 07/07/19 08:47 Dose: 2 mg Metformin HCl (Glucophage) 500 mg PO BIDMEALS [facility] Last Admin: 07/06/19 08:47 Dose: 500 mg Metoprolol Succinate (Toprol Xl) 50 mg PO DAILY [facility] Last Admin: 07/07/19 08:49 Dose: 50 mg Metronidazole (Flagyl) 500 mg PO TID [facility] Stop: 07/23/19 09:01 Last Admin: 07/07/19 08:46 Dose: 500 mg Nicotine (Habitrol) 21 mg TRDERM Q24H [facility] Last Admin: 07/07/19 08:48 Dose: 21 mg Nitroglycerin (Nitrostat) 0.4 mg SL ASDIRECTED PRN PRN Reason: Chest Pain Ondansetron HCl (Zofran Odt) 4 mg PO Q4H PRN PRN Reason: Nausea/Vomiting Oxycodone/Acetaminophen (Percocet 325-5 Mg) 1 tab PO Q6H PRN PRN Reason: PAIN Last Admin: 07/07/19 10:24 Dose: 1 tab Pantoprazole Sodium (Protonix) 40 mg PO BIDAC [facility] Last Admin: 07/07/19 06:30 Dose: 40 mg Sertraline HCl (Zoloft) 50 mg PO DAILY [facility] Last Admin: 07/07/19 08:47 Dose: 50 mg Sodium Chloride (Saline Flush) 10 ml FLUSH ASDIRECTED PRN PRN Reason: FLUSH Last Admin: 07/07/19 08:50 Dose: 10 ml Sodium Chloride (Saline Flush) 10 ml FLUSH 1000 PRN PRN Reason: Other Last Admin: 07/07/19 06:14 Dose: 10 ml Sodium Chloride (Saline Flush) 10 ml FLUSH DAILY [facility] Last Admin: 07/07/19 08:50 Dose: 10 ml Tamsulosin HCl (Flomax) 0.8 mg PO DAILY [facility] Last Admin: 07/07/19 08:47 Dose: 0.8 mg Trazodone HCl (Trazodone) 25 mg PO BEDTIME [facility] Last Admin: 07/06/19 20:21 Dose: 25 mg Warfarin Sodium (Coumadin Sliding Scale) 1 each PO DAILY [facility] Warfarin Sodium (Coumadin) 2.5 mg PO 1600 [facility] Stop: 07/07/19 16:01 Discontinued Medications Artificial Tears (Refresh Tears 0.5%) 0 ml EYEBOTH TID [facility] Last Admin: 07/03/19 21:06 Dose: Not Given Furosemide (Lasix) 40 mg IVPUSH NOW ONE Stop: 07/06/19 09:55 Last Admin: 07/06/19 10:49 Dose: 40 mg Sodium Chloride (Normal Saline) 500 mls @ 500 mls/hr IV .BOLUS ONE Stop: 07/06/19 15:15 Last Admin: 07/06/19 14:36 Dose: 500 mls/hr Iopamidol (Isovue-370 (76%)) 100 ml IV ONETIME ONE Stop: 07/06/19 16:11 Last Admin: 07/06/19 16:37 Dose: 80 ml Oxycodone/Acetaminophen (Percocet 325-5 Mg) 1 tab PO DAILY PRN PRN Reason: severe pain Last Admin: 07/04/19 06:43 Dose: 1 tab Pantoprazole Sodium (Protonix) 40 mg PO BEDTIME [facility] Last Admin: 07/05/19 20:15 Dose: 40 mg Trazodone HCl (Trazodone) 50 mg PO BEDTIME PRN PRN Reason: Insomnia - Exam General: Alert, Oriented, Cooperative Extremities: Pedal Edema (2+), Leg Pain (left ankle, TTP over medial & lateral malleolus, no erythema, or warmth. Pitting edema 2+). No: Joint Swelling, Increased Warmth - Problem List & Annotations (1) Left ankle pain SNOMED Code(s): 656115648, 915442929 Code(s): M25.572 - PAIN IN LEFT ANKLE AND JOINTS OF LEFT FOOT Status: Acute Current Visit: Yes (2) Antibiotic long-term use SNOMED Code(s): 314746663 Code(s): Z79.2 - SHELTER (CURRENT) USE OF ANTIBIOTICS Status: Acute Current Visit: Yes (3) Hepatic abscess SNOMED Code(s): 78442351 Code(s): K75.0 - ABSCESS OF LIVER Status: Acute Current Visit: Yes (4) Long-term (current) use of anticoagulants, INR goal 2.0-3.0 SNOMED Code(s): 265855877, 532240200 Code(s): Z79.01 - ENGLISH ADJUNCT FACULTY (CURRENT) USE OF ANTICOAGULANTS Status: Acute Current Visit: Yes (5) MDD (major depressive disorder) SNOMED Code(s): 172472520 Code(s): F32.9 - MAJOR DEPRESSIVE DISORDER, SINGLE EPISODE, UNSPECIFIED Status: Acute Current Visit: Yes Qualifiers: Major depression recurrence: recurrent (6) Afib SNOMED Code(s): 84031718 Code(s): I48.91 - UNSPECIFIED ATRIAL FIBRILLATION Status: Chronic Current Visit: Yes Qualifiers: Atrial fibrillation type: permanent Qualified Code(s): I48.21 - Permanent atrial fibrillation (7) Obesity SNOMED Code(s): 210183306, 635793725 Code(s): E66.9 - OBESITY, UNSPECIFIED Status: Chronic Current Visit: Yes Qualifiers: Obesity type: due to excess calories (8) Peripheral edema SNOMED Code(s): 766968494 Code(s): R60.9 - EDEMA, UNSPECIFIED Status: Chronic Current Visit: Yes (9) Stasis dermatitis of both legs SNOMED Code(s): 03275190 Code(s): I87.2 - VENOUS INSUFFICIENCY (CHRONIC) (PERIPHERAL) Status: Chronic Current Visit: Yes (10) Venous insufficiency of both lower extremities SNOMED Code(s): 395937779 Code(s): I87.2 - VENOUS INSUFFICIENCY (CHRONIC) (PERIPHERAL) Status: Chronic Current Visit: Yes - Problem List Review Problem List Initiated/Reviewed/Updated: Yes - My Orders Last 24 Hours: My Active Orders 07/06/19 11:59 HALLEY Bandage [Elastic Wrap] [OM.PC] Routine 07/06/19 14:18 Abdomen Pelvis w Cont [CT] Routine 07/06/19 17:30 Pantoprazole [ProTONIX] 40 mg PO BIDAC 07/06/19 21:00 traZODone 25 mg PO BEDTIME 07/07/19 10:12 Ankle 2V Lt [CR] Routine 07/08/19 06:00 CBC WITH AUTO DIFF [HEME] Routine - Plan Plan:: Will get ankle x-ray, HALLEY wrap and Ice to left ankle along with Aspercreme. Would not inject if bursitis due to other infections, advised it would be high risk for causing infection in his ankle if we injected it.
[2019-07-07] MEDS: Micafungin 100 MG in Sodium Chloride 0.9% 100 ML IV SCH (13:01)
[2019-07-07] MEDS: Trolamine Salicylate/Aloe Vera 10% Crm 85 GM Tube TOP SCH ×3 (14:33→20:10)
[2019-07-07] MEDS ORDERED: Warfarin 2.5 MG Tab PO ONE (16:00)
[2019-07-07] MEDS: Digoxin 250 MCG Tab PO SCH (17:16)
[2019-07-07] MEDS: Lisinopril 5 MG Tab PO SCH (20:17)
[2019-07-07] MEDS: Latanoprost 0.005% Ophth Soln 2.5 ML Bottle EYEBOTH SCH (20:18)
[2019-07-07] MEDS: traZODone 50 MG Tab PO SCH (20:18)
[2019-07-08] MEDS: Pantoprazole 40 MG Tab.CR PO SCH ×2 (06:29→17:40)
[2019-07-08] MEDS: Sodium Chloride 0.9% 10 ML Syringe FLUSH PRN ×3 (06:31→13:18)
[2019-07-08] MEDS: Trolamine Salicylate/Aloe Vera 10% Crm 85 GM Tube TOP SCH ×4 (09:44→20:39)
[2019-07-08] MEDS: Clopidogrel 75 MG Tab PO SCH (09:44)
[2019-07-08] MEDS: atorvaSTATin 40 MG Tab PO SCH (09:47)
[2019-07-08] MEDS: Loperamide 2 MG Cap PO SCH ×4 (09:48→20:39)
[2019-07-08] MEDS: metroNIDAZOLE 500 MG Tab PO SCH ×3 (09:48→20:38)
[2019-07-08] MEDS: Metoprolol Succinate 50 MG Tab.ER PO SCH (09:48)
[2019-07-08] MEDS: Nicotine 21 MG/24 Hr Patch TRDERM SCH (09:48)
[2019-07-08] MEDS: Acetaminophen/oxyCODONE 325-5 MG Tab PO PRN ×2 (09:48→19:07)
[2019-07-08] MEDS: Gabapentin 300 MG Cap PO SCH ×2 (09:48→20:42)
[2019-07-08] MEDS: Furosemide 20 MG Tab PO SCH ×2 (09:49→13:24)
[2019-07-08] MEDS: Amiodarone 200 MG Tab PO SCH (09:49)
[2019-07-08] MEDS: Sodium Chloride 0.9% 10 ML Syringe FLUSH SCH (09:49)
[2019-07-08] MEDS: Tamsulosin 0.4 MG Cap.ER PO SCH (09:49)
[2019-07-08] MEDS: Sertraline 50 MG Tab PO SCH (09:50)
[2019-07-08] MEDS: Lactobacillus Rhamnosus GG (Probiotic) Cap PO SCH ×3 (09:50→20:39)
[2019-07-08] MEDS: guaiFENesin 600 MG Tab.ER PO SCH ×2 (09:50→20:38)
[2019-07-08] MEDS: cefTRIAXone 2 GM Vial IVPUSH SCH (09:50)
[2019-07-08] MEDS: Micafungin 100 MG in Sodium Chloride 0.9% 100 ML IV SCH (13:17)
[2019-07-08] MEDS ORDERED: Warfarin 2.5 MG Tab PO ONE (16:00)
[2019-07-08] MEDS: metFORMIN 500 MG Tab PO SCH (17:40)
[2019-07-08] MEDS ORDERED: Digoxin 125 MCG Tab ONE (18:59)
[2019-07-08] MEDS: Digoxin 250 MCG Tab PO SCH (19:04)
[2019-07-08] MEDS: Lisinopril 5 MG Tab PO SCH (20:40)
[2019-07-08] MEDS: traZODone 50 MG Tab PO SCH (20:40)
[2019-07-08] MEDS: Latanoprost 0.005% Ophth Soln 2.5 ML Bottle EYEBOTH SCH (20:40)
[2019-07-09] MEDS: Furosemide 20 MG Tab PO SCH ×2 (07:50→15:07)
[2019-07-09] MEDS: Pantoprazole 40 MG Tab.CR PO SCH ×2 (07:50→17:29)
[2019-07-09] MEDS: metFORMIN 500 MG Tab PO SCH ×2 (07:50→17:29)
[2019-07-09] MEDS: Trolamine Salicylate/Aloe Vera 10% Crm 85 GM Tube TOP SCH ×4 (09:21→21:20)
[2019-07-09] MEDS: Sertraline 50 MG Tab PO SCH (09:26)
[2019-07-09] MEDS: Gabapentin 300 MG Cap PO SCH ×2 (09:26→21:23)
[2019-07-09] MEDS: Tamsulosin 0.4 MG Cap.ER PO SCH (09:26)
[2019-07-09] MEDS: Loperamide 2 MG Cap PO SCH ×4 (09:27→21:22)
[2019-07-09] MEDS: Metoprolol Succinate 50 MG Tab.ER PO SCH (09:27)
[2019-07-09] MEDS: Ondansetron 4 MG Tab.DIS PO PRN (09:28)
[2019-07-09] MEDS: atorvaSTATin 40 MG Tab PO SCH (09:28)
[2019-07-09] MEDS: Amiodarone 200 MG Tab PO SCH (09:29)
[2019-07-09] MEDS: Clopidogrel 75 MG Tab PO SCH (09:29)
[2019-07-09] MEDS: Lactobacillus Rhamnosus GG (Probiotic) Cap PO SCH ×3 (09:30→21:22)
[2019-07-09] MEDS: metroNIDAZOLE 500 MG Tab PO SCH ×3 (09:31→21:22)
[2019-07-09] MEDS: Nicotine 21 MG/24 Hr Patch TRDERM SCH (09:32)
[2019-07-09] MEDS: guaiFENesin 600 MG Tab.ER PO SCH ×2 (09:32→21:22)
[2019-07-09] MEDS: Acetaminophen/oxyCODONE 325-5 MG Tab PO PRN ×2 (09:36→21:22)
[2019-07-09] MEDS: cefTRIAXone 2 GM Vial IVPUSH SCH (09:55)
[2019-07-09] MEDS: Sodium Chloride 0.9% 10 ML Syringe FLUSH PRN (09:56)
[2019-07-09] MEDS: Sodium Chloride 0.9% 10 ML Syringe FLUSH SCH (09:56)
[2019-07-09] MEDS: Megestrol Susp 40 MG/ML ML (240 ML Bottle) PO SCH (11:40)
[2019-07-09] MEDS: Micafungin 100 MG in Sodium Chloride 0.9% 100 ML IV SCH (13:28)
[2019-07-09] MEDS: Digoxin 250 MCG Tab PO SCH (17:29)
[2019-07-09] MEDS: Latanoprost 0.005% Ophth Soln 2.5 ML Bottle EYEBOTH SCH (21:23)
[2019-07-09] MEDS: Lisinopril 5 MG Tab PO SCH (21:23)
[2019-07-09] MEDS: traZODone 50 MG Tab PO SCH (21:23)
[2019-07-10] MEDS: Acetaminophen/oxyCODONE 325-5 MG Tab PO PRN ×2 (05:12→21:32)
[2019-07-10] MEDS: Pantoprazole 40 MG Tab.CR PO SCH ×2 (06:31→17:20)
[2019-07-10] MEDS: Sodium Chloride 0.9% 10 ML Syringe FLUSH PRN ×5 (06:44→15:11)
[2019-07-10] MEDS: Trolamine Salicylate/Aloe Vera 10% Crm 85 GM Tube TOP SCH ×4 (08:14→21:23)
[2019-07-10] MEDS: Metoprolol Succinate 50 MG Tab.ER PO SCH (08:35)
[2019-07-10] MEDS: Clopidogrel 75 MG Tab PO SCH (08:36)
[2019-07-10] MEDS: Loperamide 2 MG Cap PO SCH ×4 (08:36→21:26)
[2019-07-10] MEDS: Tamsulosin 0.4 MG Cap.ER PO SCH (08:37)
[2019-07-10] MEDS: guaiFENesin 600 MG Tab.ER PO SCH ×2 (08:37→21:28)
[2019-07-10] MEDS: Lactobacillus Rhamnosus GG (Probiotic) Cap PO SCH ×3 (08:38→21:28)
[2019-07-10] MEDS: metroNIDAZOLE 500 MG Tab PO SCH ×3 (08:38→21:26)
[2019-07-10] MEDS: atorvaSTATin 40 MG Tab PO SCH (08:39)
[2019-07-10] MEDS: Amiodarone 200 MG Tab PO SCH (08:39)
[2019-07-10] MEDS: metFORMIN 500 MG Tab PO SCH ×2 (08:40→17:20)
[2019-07-10] MEDS: Furosemide 20 MG Tab PO SCH ×2 (08:41→14:01)
[2019-07-10] MEDS: Sertraline 50 MG Tab PO SCH (08:42)
[2019-07-10] MEDS: Nicotine 21 MG/24 Hr Patch TRDERM SCH (08:43)
[2019-07-10] MEDS: Gabapentin 300 MG Cap PO SCH ×2 (09:13→21:31)
[2019-07-10] MEDS: Sodium Chloride 0.9% 10 ML Syringe FLUSH SCH (09:24)
[2019-07-10] MEDS: cefTRIAXone 2 GM Vial IVPUSH SCH (10:08)
[2019-07-10] MEDS: Megestrol Susp 40 MG/ML ML (240 ML Bottle) PO SCH (11:43)
[2019-07-10] MEDS: Micafungin 100 MG in Sodium Chloride 0.9% 100 ML IV SCH (13:14)
[2019-07-10] MEDS: Digoxin 250 MCG Tab PO SCH (17:21)
[2019-07-10] MEDS: traZODone 50 MG Tab PO SCH (21:27)
[2019-07-10] MEDS: Latanoprost 0.005% Ophth Soln 2.5 ML Bottle EYEBOTH SCH (21:29)
[2019-07-10] MEDS: Lisinopril 5 MG Tab PO SCH (21:31)
[2019-07-11] MEDS: Pantoprazole 40 MG Tab.CR PO SCH ×2 (06:57→17:30)
[2019-07-11] MEDS: Sodium Chloride 0.9% 10 ML Syringe FLUSH PRN ×2 (06:58→14:45)
[2019-07-11] MEDS: metFORMIN 500 MG Tab PO SCH ×2 (09:21→17:38)
[2019-07-11] MEDS: Furosemide 20 MG Tab PO SCH ×2 (09:22→13:41)
[2019-07-11] MEDS: metroNIDAZOLE 500 MG Tab PO SCH ×3 (09:23→21:28)
[2019-07-11] MEDS: Amiodarone 200 MG Tab PO SCH (09:23)
[2019-07-11] MEDS: Lactobacillus Rhamnosus GG (Probiotic) Cap PO SCH ×3 (09:23→21:28)
[2019-07-11] MEDS: Tamsulosin 0.4 MG Cap.ER PO SCH (09:24)
[2019-07-11] MEDS: guaiFENesin 600 MG Tab.ER PO SCH ×2 (09:25→21:29)
[2019-07-11] MEDS: atorvaSTATin 40 MG Tab PO SCH (09:25)
[2019-07-11] MEDS: Loperamide 2 MG Cap PO SCH ×4 (09:25→21:28)
[2019-07-11] MEDS: Clopidogrel 75 MG Tab PO SCH (09:26)
[2019-07-11] MEDS: Metoprolol Succinate 25 MG Tab.ER PO SCH (09:26)
[2019-07-11] MEDS: Sertraline 50 MG Tab PO SCH (09:27)
[2019-07-11] MEDS: Nicotine 21 MG/24 Hr Patch TRDERM SCH (09:27)
[2019-07-11] MEDS: Trolamine Salicylate/Aloe Vera 10% Crm 85 GM Tube TOP SCH ×4 (10:20→21:23)
[2019-07-11] MEDS: cefTRIAXone 2 GM Vial IVPUSH SCH (10:21)
[2019-07-11] MEDS: Sodium Chloride 0.9% 10 ML Syringe FLUSH SCH (10:21)
[2019-07-11] MEDS: Gabapentin 300 MG Cap PO SCH ×2 (10:34→21:41)
[2019-07-11] MEDS: Megestrol Susp 40 MG/ML ML (240 ML Bottle) PO SCH (11:38)
[2019-07-11] MEDS: Micafungin 100 MG in Sodium Chloride 0.9% 100 ML IV SCH (13:35)
[2019-07-11] MEDS: Digoxin 250 MCG Tab PO SCH (17:29)
[2019-07-11] MEDS: Latanoprost 0.005% Ophth Soln 2.5 ML Bottle EYEBOTH SCH (21:30)
[2019-07-11] MEDS: traZODone 50 MG Tab PO SCH (21:41)
[2019-07-11] MEDS: Lisinopril 5 MG Tab PO SCH (21:41)
[2019-07-11] MEDS: Acetaminophen/oxyCODONE 325-5 MG Tab PO PRN (21:42)
[2019-07-12] MEDS: Sodium Chloride 0.9% 10 ML Syringe FLUSH PRN ×4 (05:45→19:52)
[2019-07-12] MEDS: Pantoprazole 40 MG Tab.CR PO SCH ×3 (05:50→18:08)
[2019-07-12] MEDS: Furosemide 20 MG Tab PO SCH ×2 (09:58→13:33)
[2019-07-12] MEDS: metFORMIN 500 MG Tab PO SCH ×2 (09:58→18:08)
[2019-07-12] MEDS: Trolamine Salicylate/Aloe Vera 10% Crm 85 GM Tube TOP SCH ×4 (09:59→21:57)
[2019-07-12] MEDS: Amiodarone 200 MG Tab PO SCH (09:59)
[2019-07-12] MEDS: metroNIDAZOLE 500 MG Tab PO SCH ×3 (10:00→21:55)
[2019-07-12] MEDS: Tamsulosin 0.4 MG Cap.ER PO SCH (10:00)
[2019-07-12] MEDS: Lactobacillus Rhamnosus GG (Probiotic) Cap PO SCH ×3 (10:00→21:55)
[2019-07-12] MEDS: Loperamide 2 MG Cap PO SCH ×4 (10:00→21:55)
[2019-07-12] MEDS: guaiFENesin 600 MG Tab.ER PO SCH ×2 (10:01→21:56)
[2019-07-12] MEDS: cefTRIAXone 2 GM Vial IVPUSH SCH (10:01)
[2019-07-12] MEDS: atorvaSTATin 40 MG Tab PO SCH (10:01)
[2019-07-12] MEDS: Sertraline 50 MG Tab PO SCH (10:02)
[2019-07-12] MEDS: Metoprolol Succinate 25 MG Tab.ER PO SCH (10:02)
[2019-07-12] MEDS: Nicotine 21 MG/24 Hr Patch TRDERM SCH (10:02)
[2019-07-12] MEDS: Clopidogrel 75 MG Tab PO SCH (10:14)
[2019-07-12] MEDS: Gabapentin 300 MG Cap PO SCH ×2 (10:19→21:56)
[2019-07-12] MEDS: Acetaminophen/oxyCODONE 325-5 MG Tab PO PRN ×2 (10:19→18:23)
[2019-07-12] MEDS: Sodium Chloride 0.9% 10 ML Syringe FLUSH SCH (10:27)
[2019-07-12] MEDS: Megestrol Susp 40 MG/ML ML (240 ML Bottle) PO SCH (12:07)
--- NOTE | 2019-07-12 12:17 | PN ---
DATE SEEN: 07/12/2019 SUBJECTIVE: Eligio Alicea is a 69-year-old, male, admitted to [facility] on 07/04/2019, presented with complicated liver abscess. Has a central line in place, a OZ catheter. Not been actively involved in his intervention. Declining health and well being. Bugs are reviewed. History of atrial fibrillation. Recent episode of chest pain is evaluated, resolved. Sugars are reasonable. INR 2.42. RECENT LABORATORY STUDIES: None. PHYSICAL EXAMINATION: VITAL SIGNS: 36.7, 126/68, 16, 94% on 1 L. GENERAL: Soft spoken, bit distant. NECK: No JVD. CHEST: Decreased breath sounds both lung bases. HEART: Distant heart sounds. ABDOMEN: Benign. OZ and central line in place. ASSESSMENT: Complicated liver abscess. PLAN: Medications on board, three drug therapy includes micafungin sodium, oral metronidazole, and intravenous ceftriaxone. Antibiotics plan till 07/23/2019. ASSESSMENT: Liver abscess. PLAN: Medications care and treatment on board. /[id number] /[id number]
[2019-07-12] MEDS: Micafungin 100 MG in Sodium Chloride 0.9% 100 ML IV SCH (13:28)
[2019-07-12] MEDS: Digoxin 250 MCG Tab PO SCH (16:23)
[2019-07-12] MEDS: Ondansetron 4 MG Tab.DIS PO PRN (19:46)
--- NOTE | 2019-07-12 21:50 | PCM.PN ---
- General Info Date of Service: 07/12/19 (Patient seen at 2140 hrs.) Admission Dx/Problem (Free Text): Complicated liver abscesses Subjective Update: I was asked to see the patient by the nursing staff secondary to "not looking good". The nurses were concerned that he had a somewhat pale and pasty look. He also has pains in multiple areas that seem to be controlled with pain medication. He also has total body edema. He's are all unchanged. He has no chest pain at present. He did have that last night. Current vitals show a temperature of 97.7F, a pulse of 96, O2 saturation of 90% and blood pressure of 106/70. The patient is awake and alert. He feels that he is breathing normally. He does feel weak all over but this is really unchanged. He does have some nausea but that is resolving. Functional Status: Reports: Pain Controlled (Improving), Tolerating Diet, Urinating. Denies: New Symptoms - Review of Systems General: Reports: No Symptoms HEENT: Reports: No Symptoms Pulmonary: Reports: Shortness of Breath (With activity unchanged) Cardiovascular: Denies: Chest Pain Gastrointestinal: Reports: Nausea. Denies: Vomiting Genitourinary: Reports: Other (Urine reported by the nursing staff is dark.). Denies: Dysuria Musculoskeletal: Reports: Other (Total body edema) Skin: Reports: No Symptoms Neurological: Denies: Headache - Patient Data Vitals - Most Recent: Last Vital Signs Temp 36.8 C 07/12/19 08:00 Pulse 81 07/12/19 16:23 Resp 20 07/12/19 08:00 BP 126/60 07/12/19 10:02 Pulse Ox 95 07/12/19 08:00 Weight - Most Recent: 113.534 kg I&O - Last 24 Hours: Intake & Output 07/12/19 07/12/19 07/12/19 06:59 14:59 22:59 Intake Total 50 100 Output Total 200 600 Balance -150 -500 Lab Results Last 24 Hours: Laboratory Results - last 24 hr 07/11/19 07/12/19 07/12/19 Range/Units 21:35 05:40 05:44 WBC (4.5-12.0) X10-3/uL RBC (4.30-5.75) x10(6)uL Hgb (13.5-17.8) g/dL Hct (30.0-51.3) % MCV (80-96) fL MCH (27.7-33.6) pg MCHC (32.2-35.4) g/dL RDW (11.5-15.5) % Plt Count (125-369) X10(3)uL PT 23.3 H (8.7-11.1) INR 2.42 H (0.89-1.13) Sodium (135-145) mmol/L Potassium (3.5-5.3) mmol/L Chloride (100-110) mmol/L Carbon Dioxide (21-32) mmol/L BUN (7-18) mg/dL Creatinine (0.70-1.30) mg/dL Est Cr Clr Drug Dosing mL/min Estimated GFR (MDRD) (>60) BUN/Creatinine Ratio (9-20) Glucose (80-116) mg/dL POC Glucose 112 94 (80-116) mg/dL Calcium (8.6-10.2) mg/dL TSH, Ultra Sensitive (0.36-3.74) IU/mL 07/12/19 07/12/19 07/12/19 Range/Units 11:00 11:00 11:00 WBC 8.9 (4.5-12.0) X10-3/uL RBC 3.47 L (4.30-5.75) x10(6)uL Hgb 10.2 L (13.5-17.8) g/dL Hct 30.0 (30.0-51.3) % MCV 86.4 (80-96) fL MCH 29.3 (27.7-33.6) pg MCHC 34.0 (32.2-35.4) g/dL RDW 16.4 H (11.5-15.5) % Plt Count 203 (125-369) X10(3)uL PT (8.7-11.1) INR (0.89-1.13) Sodium 138 (135-145) mmol/L Potassium 4.1 (3.5-5.3) mmol/L Chloride 99 L (100-110) mmol/L Carbon Dioxide 32 (21-32) mmol/L BUN 10 (7-18) mg/dL Creatinine 1.1 (0.70-1.30) mg/dL Est Cr Clr Drug Dosing 69.57 mL/min Estimated GFR (MDRD) > 60 (>60) BUN/Creatinine Ratio 9.1 (9-20) Glucose 150 H (80-116) mg/dL POC Glucose (80-116) mg/dL Calcium 8.1 L (8.6-10.2) mg/dL TSH, Ultra Sensitive 3.78 H (0.36-3.74) IU/mL 07/12/19 Range/Units 18:12 WBC (4.5-12.0) X10-3/uL RBC (4.30-5.75) x10(6)uL Hgb (13.5-17.8) g/dL Hct (30.0-51.3) % MCV (80-96) fL MCH (27.7-33.6) pg MCHC (32.2-35.4) g/dL RDW (11.5-15.5) % Plt Count (125-369) X10(3)uL PT (8.7-11.1) INR (0.89-1.13) Sodium (135-145) mmol/L Potassium (3.5-5.3) mmol/L Chloride (100-110) mmol/L Carbon Dioxide (21-32) mmol/L BUN (7-18) mg/dL Creatinine (0.70-1.30) mg/dL Est Cr Clr Drug Dosing mL/min Estimated GFR (MDRD) (>60) BUN/Creatinine Ratio (9-20) Glucose (80-116) mg/dL POC Glucose 104 (80-116) mg/dL Calcium (8.6-10.2) mg/dL TSH, Ultra Sensitive (0.36-3.74) IU/mL Med Orders - Current: Current Medications Amiodarone HCl (Cordarone) 200 mg PO DAILY [facility] Last Admin: 07/12/19 09:59 Dose: 200 mg Aripiprazole (Abilify) 2 mg PO DAILY [facility] Last Admin: 07/12/19 09:59 Dose: 2 mg Artificial Tears (Refresh Tears 0.5%) 0 ml EYEBOTH TID PRN PRN Reason: DRY EYES Atorvastatin Calcium (Lipitor) 40 mg PO DAILY [facility] Last Admin: 07/12/19 10:01 Dose: 40 mg Ceftriaxone Sodium (Rocephin) 2 gm IVPUSH Q24H [facility] Stop: 07/23/19 09:01 Last Admin: 07/12/19 10:01 Dose: 2 gm Clopidogrel Bisulfate (Plavix) 75 mg PO DAILY [facility] Last Admin: 07/12/19 10:14 Dose: 75 mg Digoxin (Lanoxin) 250 mcg PO DAILY@1600 [facility] Last Admin: 07/12/19 16:23 Dose: 250 mcg Famotidine (Pepcid) 20 mg PO BID PRN PRN Reason: Dyspepsia Last Admin: 07/06/19 08:18 Dose: 20 mg Furosemide (Lasix) 20 mg PO BID@08,14 [facility] Last Admin: 07/12/19 13:33 Dose: 20 mg Gabapentin (Neurontin) 300 mg PO BID [facility] Last Admin: 07/12/19 10:19 Dose: 300 mg Guaifenesin (Mucinex) 600 mg PO BID [facility] Last Admin: 07/12/19 10:01 Dose: 600 mg Heparin Sodium (Porcine) (Heparin Lock Flush 100 Units/Ml) 300 units FLUSH ASDIRECTED PRN PRN Reason: line patency Last Admin: 07/12/19 11:12 Dose: 300 units Heparin Sodium (Porcine) (Heparin Lock Flush 100 Units/Ml) 300 units FLUSH BID@ 0930,1400 [facility] Last Admin: 07/12/19 14:33 Dose: 300 units Micafungin Sodium 100 mg/ (Sodium Chloride) 100 mls @ 100 mls/hr IV Q24H [facility] Stop: 07/23/19 13:59 Last Admin: 07/12/19 13:28 Dose: 100 mls/hr Lactobacillus Rhamnosus (Culturelle) 1 cap PO TID [facility] Last Admin: 07/12/19 13:33 Dose: 1 cap Latanoprost (Xalatan 0.005% Ophth Soln) 0 ml EYEBOTH BEDTIME [facility] Last Admin: 07/11/19 21:30 Dose: 1 drop Lisinopril (Prinivil) 5 mg PO BEDTIME [facility] Last Admin: 07/11/19 21:41 Dose: Not Given Loperamide HCl (Imodium) 2 mg PO QID [facility] Last Admin: 07/12/19 18:08 Dose: 2 mg Megestrol Acetate (Megace 40 Mg/Ml Susp) 400 mg PO ACLUNCH [facility] Last Admin: 07/12/19 12:07 Dose: 400 mg Metformin HCl (Glucophage) 500 mg PO BIDMEALS [facility] Last Admin: 07/12/19 18:08 Dose: 500 mg Metoprolol Succinate (Toprol Xl) 25 mg PO DAILY [facility] Last Admin: 07/12/19 10:02 Dose: 25 mg Metronidazole (Flagyl) 500 mg PO TID [facility] Stop: 07/23/19 09:01 Last Admin: 07/12/19 13:33 Dose: 500 mg Nicotine (Habitrol) 21 mg TRDERM Q24H [facility] Last Admin: 07/12/19 10:02 Dose: 21 mg Nitroglycerin (Nitrostat) 0.4 mg SL ASDIRECTED PRN PRN Reason: Chest Pain Last Admin: 07/11/19 21:11 Dose: 0.4 mg Ondansetron HCl (Zofran Odt) 4 mg PO Q4H PRN PRN Reason: Nausea/Vomiting Last Admin: 07/12/19 19:46 Dose: 4 mg Oxycodone/Acetaminophen (Percocet 325-5 Mg) 1 tab PO Q6H PRN PRN Reason: PAIN Last Admin: 07/12/19 18:23 Dose: 1 tab Pantoprazole Sodium (Protonix) 40 mg PO BIDAC [facility] Last Admin: 07/12/19 18:08 Dose: 40 mg Sertraline HCl (Zoloft) 50 mg PO DAILY [facility] Last Admin: 07/12/19 10:02 Dose: 50 mg Sodium Chloride (Saline Flush) 10 ml FLUSH ASDIRECTED PRN PRN Reason: FLUSH Last Admin: 07/12/19 19:52 Dose: 10 ml Sodium Chloride (Saline Flush) 10 ml FLUSH 1000 PRN PRN Reason: Other Last Admin: 07/12/19 14:34 Dose: 10 ml Sodium Chloride (Saline Flush) 10 ml FLUSH DAILY [facility] Last Admin: 07/12/19 10:27 Dose: 10 ml Tamsulosin HCl (Flomax) 0.8 mg PO DAILY [facility] Last Admin: 07/12/19 10:00 Dose: 0.8 mg Trazodone HCl (Trazodone) 25 mg PO BEDTIME [facility] Last Admin: 07/11/19 21:41 Dose: 25 mg Trolamine Salicylate (Aspercreme 10%) 0 gm TOP QID [facility] Last Admin: 07/12/19 18:07 Dose: 1 applic Warfarin Sodium (Coumadin Sliding Scale) 1 each PO DAILY [facility] Discontinued Medications Artificial Tears (Refresh Tears 0.5%) 0 ml EYEBOTH TID [facility] Last Admin: 07/03/19 21:06 Dose: Not Given Digoxin (Lanoxin) Confirm Administered Dose 250 mcg .ROUTE .STK-MED ONE Stop: 07/08/19 19:00 Last Admin: 07/08/19 19:03 Dose: Not Given Furosemide (Lasix) 40 mg IVPUSH NOW ONE Stop: 07/06/19 09:55 Last Admin: 07/06/19 10:49 Dose: 40 mg Sodium Chloride (Normal Saline) 500 mls @ 500 mls/hr IV .BOLUS ONE Stop: 07/06/19 15:15 Last Admin: 07/06/19 14:36 Dose: 500 mls/hr Iopamidol (Isovue-370 (76%)) 100 ml IV ONETIME ONE Stop: 07/06/19 16:11 Last Admin: 07/06/19 16:37 Dose: 80 ml Metoprolol Succinate (Toprol Xl) 50 mg PO DAILY [facility] Last Admin: 07/10/19 08:35 Dose: 50 mg Oxycodone/Acetaminophen (Percocet 325-5 Mg) 1 tab PO DAILY PRN PRN Reason: severe pain Last Admin: 07/04/19 06:43 Dose: 1 tab Pantoprazole Sodium (Protonix) 40 mg PO BEDTIME [facility] Last Admin: 07/05/19 20:15 Dose: 40 mg Trazodone HCl (Trazodone) 50 mg PO BEDTIME PRN PRN Reason: Insomnia Warfarin Sodium (Coumadin) 2.5 mg PO 1600 ONE Stop: 07/07/19 16:01 Last Admin: 07/07/19 17:16 Dose: 2.5 mg Warfarin Sodium (Coumadin) 1.25 mg PO ONETIME ONE Stop: 07/08/19 16:01 Last Admin: 07/08/19 17:38 Dose: 1.25 mg Warfarin Sodium (Coumadin) 1 mg PO ONETIME ONE Stop: 07/10/19 16:01 Last Admin: 07/10/19 17:17 Dose: 1 mg Warfarin Sodium (Coumadin) 1 mg PO ONETIME ONE Stop: 07/12/19 16:01 Last Admin: 07/12/19 16:24 Dose: 1 mg - Exam Quality Assessment: Central Line/PICC General: Alert, Oriented, Cooperative, No Acute Distress HEENT: EOMI, Mucous Membr. Moist/[place], Scleral Icterus Neck: Supple, Trachea Midline Lungs: Clear to Auscultation, Normal Respiratory Effort Cardiovascular: Regular Rate, Irregular Rhythm GI/Abdominal Exam: Normal Bowel Sounds, Tender (Diffusely but this is reported by him to be chronic.) Extremities: Pedal Edema Peripheral Pulses: 2+: Radial (L), Radial (R) Skin: Warm, Dry Neurological: No New Focal Deficit Psy/Mental Status: Alert, Normal Affect - Problem List Review Problem List Initiated/Reviewed/Updated: Yes - Assessment Assessment:: Complicated liver abscesses Anasarca - Plan Plan:: I reviewed the patient's lab tests from this morning and they appear to be either unchanged or normal. His vital signs are normal/unchanged at this point. I do not see anything at this point that needs acute intervention. I have asked the nursing staff to continue to watch the patient more closely and to discuss the patient again with Dr. Wolf in the morning. I discussed this plan with the patient and he is in agreement with this plan.
[2019-07-12] MEDS: traZODone 50 MG Tab PO SCH (21:56)
[2019-07-12] MEDS: Latanoprost 0.005% Ophth Soln 2.5 ML Bottle EYEBOTH SCH (21:57)
[2019-07-12] MEDS: Lisinopril 5 MG Tab PO SCH (21:59)
[2019-07-13] MEDS: Sodium Chloride 0.9% 10 ML Syringe FLUSH PRN (06:12)
[2019-07-13] MEDS: Pantoprazole 40 MG Tab.CR PO SCH ×2 (06:30→17:44)
[2019-07-13] MEDS: Sodium Chloride 0.9% 10 ML Syringe FLUSH SCH (09:00)
[2019-07-13] MEDS: cefTRIAXone 2 GM Vial IVPUSH SCH (10:00)
[2019-07-13] MEDS: Loperamide 2 MG Cap PO SCH ×4 (10:08→20:28)
[2019-07-13] MEDS: metroNIDAZOLE 500 MG Tab PO SCH ×3 (10:08→20:28)
[2019-07-13] MEDS: metFORMIN 500 MG Tab PO SCH ×2 (10:33→17:45)
[2019-07-13] MEDS: Trolamine Salicylate/Aloe Vera 10% Crm 85 GM Tube TOP SCH ×4 (10:33→20:23)
[2019-07-13] MEDS: Lactobacillus Rhamnosus GG (Probiotic) Cap PO SCH ×3 (10:34→20:28)
[2019-07-13] MEDS: atorvaSTATin 40 MG Tab PO SCH (10:34)
[2019-07-13] MEDS: Clopidogrel 75 MG Tab PO SCH (10:35)
[2019-07-13] MEDS: Gabapentin 300 MG Cap PO SCH ×2 (10:35→20:24)
[2019-07-13] MEDS: Sertraline 50 MG Tab PO SCH (10:35)
[2019-07-13] MEDS: guaiFENesin 600 MG Tab.ER PO SCH ×2 (10:35→20:29)
[2019-07-13] MEDS: Nicotine 21 MG/24 Hr Patch TRDERM SCH (10:36)
[2019-07-13] MEDS: Acetaminophen/oxyCODONE 325-5 MG Tab PO PRN ×2 (10:36→20:27)
[2019-07-13] MEDS: Amiodarone 200 MG Tab PO SCH (11:41)
[2019-07-13] MEDS: Tamsulosin 0.4 MG Cap.ER PO SCH (11:41)
[2019-07-13] MEDS: Megestrol Susp 40 MG/ML ML (240 ML Bottle) PO SCH (11:43)
--- NOTE | 2019-07-13 12:24 | PN ---
DATE SEEN: 07/13/2019 SUBJECTIVE: Eligio Alicea is a 69-year-old male in swing bed. He had a complicated liver abscess. J-Burris drain being flushed daily. He has had some bouts of hypotension. Not symptomatic but not very active. We will change medications including stopping his lisinopril, Prinivil, and furosemide in the mean time. Responded well to change in position. He is also on amiodarone, little impact on blood pressure rate control. LABORATORY DATA: Recent laboratory studies on 07/12/2018: Hemoglobin 10.2, white count 8900. Normal electrolytes. Glucose 150, calcium 8.1. TSH 3.78, within normal parameters. Digoxin on board. Laboratory studies noted. PHYSICAL EXAMINATION: VITAL SIGNS: 113.534 kg, 127/68, 18, 92%. GENERAL: Appears comfortable, semi-reclined in bed. HEENT: Mouth and oropharynx clear. NECK: Benign. No JVD. CHEST: Decreased breath sounds but clear throughout all lung taylor. HEART: Distant heart sounds. Occasional ectopy. OZ catheter site examined, minimal drainage. ABDOMEN: Diffusely mildly tender. ASSESSMENT: Complicated liver abscess. PLAN: Medications on board until 07/23/2019. We will withhold any intervention. OZ drain in the interim. /[id number] SHIKHA/YRIS
[2019-07-13] MEDS: Micafungin 100 MG in Sodium Chloride 0.9% 100 ML IV SCH (13:35)
[2019-07-13] MEDS ORDERED: Morphine 2 MG/ML Syringe IVPUSH PRN (14:40)
[2019-07-13] MEDS: Metoprolol Succinate 25 MG Tab.ER PO SCH (15:56)
[2019-07-13] MEDS: Furosemide 20 MG Tab PO SCH (15:56)
[2019-07-13] MEDS: traZODone 50 MG Tab PO SCH (20:29)
[2019-07-13] MEDS: Latanoprost 0.005% Ophth Soln 2.5 ML Bottle EYEBOTH SCH (20:29)
[2019-07-14] MEDS: Acetaminophen/oxyCODONE 325-5 MG Tab PO PRN ×3 (02:27→20:01)
[2019-07-14] MEDS: Sodium Chloride 0.9% 10 ML Syringe FLUSH PRN ×3 (06:13→13:39)
[2019-07-14] MEDS: Pantoprazole 40 MG Tab.CR PO SCH ×2 (06:30→16:37)
[2019-07-14] MEDS: metFORMIN 500 MG Tab PO SCH ×2 (08:51→18:02)
[2019-07-14] MEDS: Trolamine Salicylate/Aloe Vera 10% Crm 85 GM Tube TOP SCH ×4 (09:21→19:59)
[2019-07-14] MEDS: Tamsulosin 0.4 MG Cap.ER PO SCH (09:22)
[2019-07-14] MEDS: Amiodarone 200 MG Tab PO SCH (09:22)
[2019-07-14] MEDS: Loperamide 2 MG Cap PO SCH ×4 (09:22→20:00)
[2019-07-14] MEDS: metroNIDAZOLE 500 MG Tab PO SCH ×3 (09:22→20:00)
[2019-07-14] MEDS: Lactobacillus Rhamnosus GG (Probiotic) Cap PO SCH ×3 (09:22→20:00)
[2019-07-14] MEDS: guaiFENesin 600 MG Tab.ER PO SCH ×2 (09:22→20:01)
[2019-07-14] MEDS: Clopidogrel 75 MG Tab PO SCH (09:22)
[2019-07-14] MEDS: atorvaSTATin 40 MG Tab PO SCH (09:23)
[2019-07-14] MEDS: Gabapentin 300 MG Cap PO SCH ×2 (09:23→20:01)
[2019-07-14] MEDS: Sertraline 50 MG Tab PO SCH (09:23)
[2019-07-14] MEDS: Sodium Chloride 0.9% 10 ML Syringe FLUSH SCH (09:27)
[2019-07-14] MEDS: cefTRIAXone 2 GM Vial IVPUSH SCH (09:33)
[2019-07-14] MEDS: Ondansetron 4 MG Tab.DIS PO PRN (09:43)
[2019-07-14] MEDS: Metoprolol Succinate 25 MG Tab.ER PO SCH (09:43)
[2019-07-14] MEDS: Nicotine 21 MG/24 Hr Patch TRDERM SCH (09:55)
[2019-07-14] MEDS: Megestrol Susp 40 MG/ML ML (240 ML Bottle) PO SCH ×2 (11:29→11:31)
--- NOTE | 2019-07-14 12:10 | PN ---
DATE SEEN: 07/14/2019 SUBJECTIVE: Eligio Alicea is a delightful 69-year-old male seen today for review. Swing bed status. He has a complicated liver abscess. OZ drain in place. Minimal discharge. He has had a couple of episodes of atypical chest pain. Concerns about nitro due to drop in blood pressure. Morphine tolerated, feeling well. Of significance though, we will review his chart. He has had stents a couple of weeks ago; stents in the past; has a pacemaker; history of atrial fibrillation, rate controlled. MEDICATIONS: Medications on board had included: 1. Lisinopril. 2. Furosemide. 3. Digoxin. Stopped digoxin due to toxicity. Metoprolol was stopped, but will be restarted. He is also on: 1. Plavix. 2. Pepcid. 3. Neurontin. 4. Megace for appetite. 5. Glucophage for diabetes. 6. Three antibiotic therapy for his wound infection. Feeling better today. EKG was stable. New results: INR 3.21. Sugars 120 and 115. OBJECTIVE: VITAL SIGNS: 102, 121/69, 90% on no oxygen. HEENT: Mouth and oropharynx clear. NECK: Benign. Thyroid small. CHEST: Decreased breath sounds at both lung bases. HEART: Distant heart sounds. Occasional ectopy. ABDOMEN: Benign. Complicated health issues, liver abscess. PLAN: We will restart the low-dose metoprolol, no indication of furosemide, down 5 pounds. No signs of fluid overload. /[id number] [id number] SHIKHA/YRIS
[2019-07-14] MEDS: Micafungin 100 MG in Sodium Chloride 0.9% 100 ML IV SCH (12:28)
[2019-07-14] MEDS: traZODone 50 MG Tab PO SCH (20:00)
[2019-07-14] MEDS: Latanoprost 0.005% Ophth Soln 2.5 ML Bottle EYEBOTH SCH (20:02)
[2019-07-15] MEDS: Sodium Chloride 0.9% 10 ML Syringe FLUSH PRN ×3 (04:28→10:31)
[2019-07-15] MEDS: Acetaminophen/oxyCODONE 325-5 MG Tab PO PRN (06:18)
[2019-07-15] MEDS: Pantoprazole 40 MG Tab.CR PO SCH (06:30)
[2019-07-15] MEDS: metFORMIN 500 MG Tab PO SCH (09:52)
[2019-07-15] MEDS: Lactobacillus Rhamnosus GG (Probiotic) Cap PO SCH (09:52)
[2019-07-15] MEDS: Trolamine Salicylate/Aloe Vera 10% Crm 85 GM Tube TOP SCH (09:52)
[2019-07-15] MEDS: Amiodarone 200 MG Tab PO SCH (09:53)
[2019-07-15] MEDS: Tamsulosin 0.4 MG Cap.ER PO SCH (09:53)
[2019-07-15] MEDS: metroNIDAZOLE 500 MG Tab PO SCH (09:53)
[2019-07-15] MEDS: guaiFENesin 600 MG Tab.ER PO SCH (09:54)
[2019-07-15] MEDS: Clopidogrel 75 MG Tab PO SCH (09:54)
[2019-07-15] MEDS: Loperamide 2 MG Cap PO SCH (09:54)
[2019-07-15] MEDS: Metoprolol Succinate 25 MG Tab.ER PO SCH (09:54)
[2019-07-15] MEDS: atorvaSTATin 40 MG Tab PO SCH (09:54)
[2019-07-15] MEDS: Sertraline 50 MG Tab PO SCH (09:55)
[2019-07-15] MEDS: Gabapentin 300 MG Cap PO SCH (10:00)
[2019-07-15] MEDS: Sodium Chloride 0.9% 10 ML Syringe FLUSH SCH (10:03)
[2019-07-15] MEDS: Nicotine 21 MG/24 Hr Patch TRDERM SCH (10:06)
[2019-07-15 10:11] VITALS: BP 130/73; PULSE 85
[2019-07-15] MEDS ORDERED: Diatrizoate Meglumine/Diatrizoate Sodium 37% 30 ML Bottle PO ONE (10:12)
[2019-07-15] MEDS ORDERED: Iopamidol 755 Mg/ML 100 ML Bottle IV ONE (10:12)
[2019-07-15] MEDS: cefTRIAXone 2 GM Vial IVPUSH SCH (10:27)
[2019-07-15] MEDS: Megestrol Susp 40 MG/ML ML (240 ML Bottle) PO SCH (11:46)
--- NOTE | 2019-07-15 12:54 | PN ---
DATE SEEN: 07/15/2019 SUBJECTIVE: Eligio Alicea is a 69-year-old male, transferred from [facility]. He had liver abscess. He is on 3-drug antibiotic therapy. OZ drain in place. Minimal discharge. General malaise. INR dysfunctional, CRP of 62, albumin of 1.4. Weak fatigable, tired, and less active. Diffuse abdominal pain. PHYSICAL EXAMINATION: VITAL SIGNS: Stable, 107/62, mean blood pressure 77, O2 saturation 90% on zero liters, 16 is the respirations, and 36.3. GENERAL: Appears comfortable, but just generally feeling poorly. NECK: Benign. No JVD. CHEST: Decreased breath sounds at both lung bases. HEART: Irregularly irregular. ABDOMEN: Benign. General tenderness throughout his abdomen. ASSESSMENT: 1. Complicated abdominal pain. 2. Liver abscess. PLAN: We will obtain CT abdomen, results to follow, transfer and re-evaluation at [facility] next consideration. /[id number] SHIKHA/YRIS
--- NOTE | 2019-07-15 15:58 | CT ---
INDICATION: Abdominal pain, liver abscess, and distention followup. CT ABDOMEN AND PELVIS WITH CONTRAST: Spiral 3.75 mm axial sections were obtained through the abdomen and pelvis with 100 mL Isovue 370 at 2 mL/second, with sagittal and coronal reconstructions, 07/15/19, and compared with previous examination of 07/06/19. Total exam DLP = 1,903.16 mGy-cm. There are again noted pleural parenchymal changes at the right lung base with somewhat more severe consolidation and/or atelectasis of the right lower lobe and with similar or slightly increased amount of pleural effusion on the left. There is also now noted a new finding at the left lung base - lower lobe with atelectasis and/or consolidated lung to a relative mild degree, compared with the right, with pleural effusion. This may represent pneumonia and pleuritis also but should be correlated clinically. It is new compared with the previous study. The heart appears prominent, but no pericardial effusion was seen. Bipolar pacemaker leads are again noted in the heart. The liver shows evidence of abnormal areas of low density superiorly at the diaphragm with gas bubbles within that larger area. A catheter is noted extending towards that area and may still be possibly draining fluid from that area. There does remain a small amount of fluid and gas bubbles, however, as noted on axial images #19 through #36. Additionally, there are two irregularly oval-shaped areas of low density in the liver inferiorly in the right lobe, seen on axial images #41 through #44, which appear to be somewhat improved in that no gas is noted within those areas. The possibility that the gas was due to postsurgical change would be a consideration, although gas-forming organism infection may have been present - correlate clinically. No new abscess formation is suggested in the liver. There is a new finding of abdominal ascites with fluid extending into the epigastric area, both pericolic gutters, and into the pelvis, significantly increased compared with the previous examination, especially in the pelvis. The possibility of peritonitis would be a consideration. No evidence of free air or definite bowel obstruction was identified. The spleen and pancreas appear to be normal. No retroperitoneal mass was seen. Arterial calcifications are again noted. Degenerative changes and disk disease are again noted, mostly at L2 through S1. Most severe disk disease is suggested at L2 through L4-5 with hypertrophic spurring also noted in those areas. Vertebral body volume loss anteriorly is noted at L1-2, more prominent at L2 and appearing stable compared with the previous study. The urinary bladder was unremarkable. The prostate was not enlarged. There are some prostatic calcifications and a few phleboliths in the pelvis. Renal cortical scarring is noted with probable tiny benign appearing cystic structure - simple cystic structure - lower pole right kidney. IMPRESSION: 1. Continued but decreased size of abscess formation at the diaphragm, right lobe of liver but with continued gas bubbles in that area, despite drain in place. 2. Abscess formations times two or three in the lower pole of the right lobe of the liver appear to be fairly stable in size but now show absence of the gas bubbles present in those areas previously. 3. Increased and/or new onset abdominal ascites raising question of peritonitis. 4. ASD. 5. 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 Report was given in person to Dr. Wolf at approximately 1220 hours on 07/15. Report was faxed to [facility] at [phone] at approximately 1600 hours on 07/15/19. [facility]
== END 2019-07-15 12:20 | DRG 442 ==
LOC: FB.MS 07-03 14:57
PROVIDERS: ADMIT Family Medicine; ATTEND Family Medicine
DX: K75.0 Abscess of liver (principal); I48.21 Permanent atrial fibrillation; F33.9 Major depressive disorder, recurrent, unspecified; R26.2 Difficulty in walking, not elsewhere classified; E66.09 Other obesity due to excess calories; F17.200 Nicotine dependence, unspecified, uncomplicated; I25.10 Atherosclerotic heart disease of native coronary artery without angina pectoris; I87.2 Venous insufficiency (chronic) (peripheral); E11.9 Type 2 diabetes mellitus without complications; I50.9 Heart failure, unspecified; Z79.01 Long term (current) use of anticoagulants; Z79.2 Long term (current) use of antibiotics; Z88.8 Allergy status to other drugs, medicaments and biological substances; Z91.040 Latex allergy status; Z79.899 Other long term (current) drug therapy; Z95.0 Presence of cardiac pacemaker; Z87.01 Personal history of pneumonia (recurrent); Z90.49 Acquired absence of other specified parts of digestive tract; Z95.5 Presence of coronary angioplasty implant and graft; Z68.33 Body mass index [BMI] 33.0-33.9, adult
CPT/HCPCS: 36415; 73600-LT; 74177; 80048; 80053; 80162; 82962; 84443; 84484; 85025; 85027; 85610; 85651; 86140; 87324; 93005; 94760; 97110-GO; 97110-GP; 97161-GP; 97165-GO; 97530-GO; 97530-GP; 97535-GO; A9270-GY; J0696; J1642; J1940; J2248; J2270; J7030; J7040; Q9963; Q9967